=== PATIENT | female | born 1970 | race Caucasian/White ===

== ENCOUNTER → 2017-03-12 08:45 | Outpatient (CLI) | payer BC, SELFPAY ==
[2017-03-12 09:52] LABS: Absolute Lymphocyte Count 2.15 X10^3/ul (0.83-4.51); Absolute Neutrophil Count 6.1 X10^3/uL (2.0-7.7); Basophil# 0.02 X10^3/uL; Basophil% 0.2 % (0-1); Eosinophil# 0.12 X10^3/uL; Eosinophils% 1.3 % (0-5); Hematocrit 38.3 % (37-47); Hemoglobin 11.5 g/dl (12.0-15.0); Lymphocyte # 2.15 X10^3/ul (4.0); Mean Corpuscular Hgb 26.6 pg (27.0-32.0); Mean Corpuscular Volume 88.7 fL (81-99); Mean Platelet Vol. 8.8 fl (6.2-12.0); Monocyte# 0.53 X10^3/uL; Monocyte% 5.9 % (0-10); Neutrophil # 6.12 X10^3/uL (2.7-7.7); Neutrophil % 68.5 % (47-70); Platelet Count 346 K/mm3 (150-450); RBC Distribution Width CV 16.6 % (11.6-14.6); RBC Distribution Width SD 54.3 fl (35.1-43.9); Red Blood Count 4.32 M/mm3 (4.2-5.4)
[2017-03-12 09:53] LABS: POSITIVE COUNT NO; POSITIVE DIFFERENTIAL NO; POSITIVE MORPHOLOGY NO
[2017-03-12 10:16] LABS: AST(SGOT) 11 U/L (15-37); Alanine Aminotransfer ALT/SGPT 20 U/L (13-56); Albumin, Serum 3.8 g/dL (3.2-5.0); Alkaline Phosphatase 73 U/L (45-117); Anion Gap 7 (5-15); BUN 12 mg/dL (7-18); Calcium,Total 8.9 mg/dL (8.5-10.1); Chloride 108 mmol/L (98-107); EST Glomerular Filtration Rate 63 mL/min (>60); Est Glom Filt Rate - Afr Amer 77 mL/min (>60); Globulin 3.7 g/dL (2.2-4.2); Glucose 95 mg/dL (70-110); Potassium 3.9 mmol/L (3.5-5.1); Protein, Total 7.5 g/dL (6.4-8.2); Sodium Level 140 mmol/L (136-145)
[2017-03-13 15:41] LABS: Iron 35 ug/dL (50-170)
== END ==
PROVIDERS: Family Provider Nurse Practitioner; PCP Nurse Practitioner; Visit Provider Internal Medicine Rheumatology
DX: M06.4 Inflammatory polyarthropathy (principal); Z79.899 Other long term (current) drug therapy; M35.00 Sjogren syndrome, unspecified; M79.7 Fibromyalgia; M21.40 Flat foot [pes planus] (acquired), unspecified foot; D64.9 Anemia, unspecified
CPT/HCPCS: 36415; 80053; 83540; 85025

== ENCOUNTER → 2017-03-23 11:40 | Outpatient (CLI) | payer BC, SELFPAY ==
[2017-03-23 13:57] LABS: Hematocrit 34.9 % (37-47); Hemoglobin 11.1 g/dl (12.0-15.0); Mean Corp Hgb Conc 31.8 g/gl (32-36); Mean Corpuscular Hgb 27.8 pg (27.0-32.0); Mean Corpuscular Volume 87.5 fL (81-99); Mean Platelet Vol. 9.5 fl (6.2-12.0); Platelet Count 392 K/mm3 (150-450); RBC Distribution Width CV 16.5 % (11.6-14.6); RBC Distribution Width SD 51.4 fl (35.1-43.9); Red Blood Count 3.99 M/mm3 (4.2-5.4); Scan Indicated on CBC? Y/N NO; White Blood Count 6.8 K/mm3 (4.4-11.0)
[2017-03-23 14:20] LABS: Hemoglobin A1c 5.8 % (4.2-6.3)
[2017-03-23 14:26] LABS: Progesterone Level 1.14 ng/mL (See Comment)
[2017-03-23 16:10] LABS: Anion Gap 8 (5-15); BUN 12 mg/dL (7-18); BUN/Creat Ratio 10.4 RATIO (10-20); Calcium,Total 8.5 mg/dL (8.5-10.1); Chloride 108 mmol/L (98-107); Creatinine, Serum 1.15 mg/dL (0.55-1.02); EST Glomerular Filtration Rate 54 mL/min (>60); Est Glom Filt Rate - Afr Amer 65 mL/min (>60); Estradiol 104.4 pg/mL; Free T3 2.1 pg/mL (2.18-3.98); Glucose 93 mg/dL (74-106); Sodium Level 139 mmol/L (136-145); T4 Free Direct 1.04 ng/dL (0.76-1.46); Thyroid Stim Hormone (TSH) 4.16 uIU/mL (0.358-3.74)
== END ==
PROVIDERS: Visit Provider Obstetrics & Gynecology
DX: R10.2 Pelvic and perineal pain (principal)
CPT/HCPCS: 36415; 80048; 82670; 83036; 84144; 84403; 84439; 84443; 84481; 85027

== ENCOUNTER → 2017-06-05 09:30 | Outpatient (CLI) | payer BC, SELFPAY ==
[2017-06-05 12:44] LABS: ALB/GLOB Ratio 0.8 RATIO (0.9-2.4); AST(SGOT) 12 U/L (15-37); Alanine Aminotransfer ALT/SGPT 19 U/L (13-56); Albumin, Serum 3.5 g/dL (3.2-5.0); Alkaline Phosphatase 83 U/L (45-117); Anion Gap 6 (5-15); BUN 9 mg/dL (7-18); BUN/Creat Ratio 8.1 RATIO (10-20); Calcium,Total 8.6 mg/dL (8.5-10.1); Chloride 106 mmol/L (98-107); Creatinine, Serum 1.11 mg/dL (0.55-1.02); EST Glomerular Filtration Rate 56 mL/min (>60); Est Glom Filt Rate - Afr Amer 68 mL/min (>60); Globulin 4.2 g/dL (2.2-4.2); Glucose 81 mg/dL (74-106); Protein, Total 7.7 g/dL (6.4-8.2); Sodium Level 139 mmol/L (136-145)
[2017-06-05 13:22] LABS: Absolute Lymphocyte Count 1.57 X10^3/ul (0.83-4.51); Absolute Neutrophil Count 4.2 X10^3/uL (2.0-7.7); Basophil# 0.03 X10^3/uL; Basophil% 0.5 % (0-1); Eosinophil# 0.11 X10^3/uL; Eosinophils% 1.7 % (0-5); Hematocrit 36.1 % (37-47); Hemoglobin 10.8 g/dl (12.0-15.0); Lymphocyte # 1.57 X10^3/ul (4.0); Lymphocyte % 24.3 % (19-41); Mean Corp Hgb Conc 29.9 g/gl (32-36); Mean Corpuscular Hgb 24.7 pg (27.0-32.0); Mean Corpuscular Volume 82.4 fL (81-99); Mean Platelet Vol. 9.6 fl (6.2-12.0); Monocyte# 0.49 X10^3/uL; Monocyte% 7.6 % (0-10); Neutrophil # 4.24 X10^3/uL (2.7-7.7); Neutrophil % 65.7 % (47-70); Platelet Count 368 K/mm3 (150-450); RBC Distribution Width CV 14.6 % (11.6-14.6); RBC Distribution Width SD 43.9 fl (35.1-43.9); Red Blood Count 4.38 M/mm3 (4.2-5.4); White Blood Count 6.5 K/mm3 (4.4-11.0)
[2017-06-05 13:26] LABS: POSITIVE COUNT NO; POSITIVE DIFFERENTIAL NO; POSITIVE MORPHOLOGY NO
== END ==
PROVIDERS: Family Provider Nurse Practitioner; PCP Nurse Practitioner; Visit Provider Internal Medicine Rheumatology
DX: M06.4 Inflammatory polyarthropathy (principal); Z79.899 Other long term (current) drug therapy; M35.00 Sjogren syndrome, unspecified; M79.7 Fibromyalgia; M21.40 Flat foot [pes planus] (acquired), unspecified foot
CPT/HCPCS: 36415; 80053; 85025

== ENCOUNTER 2017-06-19 14:30 | Outpatient (RCR) | payer BC, SELFPAY ==
--- NOTE | 2017-04-23 11:00 | HP.PTEVAL_ITS ---
Patient's Visit Information OTIS DURAN is a 46 year old F referred to Physical Therapy by Suraj MUÑOZ with a diagnosis of Fibromyalgia. Date of Evaluation: 04/23/17 Physical Therapist: Brooklyn Bonilla - Visit Plan Frequency: 2x /Week Duration: 4 Weeks Plan: Slow progression dependent on pain - Subjective Subjective: Has been off work since April of last year due to pain- was in the hospital and took until July to figure out it was Fibromyalgia, RA, Sorgens. Has taken medications to try to get things ironed out and now she is winded doing normal activities. 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 Pain comes and goes but she is really painful today. Patient reports that she hurts head to toe. Worst: 10/19 Agg: movement Eases: nothing yet. Best: 10 Describes pain as sharp/shooting/dull and achy depending on the movement. Sleep: disturbed does not sleep well- MD is putting her on ambien. Before this started she was working at [employer] 7 days a week-3rd shift. N/ T comes and goes the whole right side. Has seen lots of doctors (PCP, math and science instructor, pain management, GI doctor). Has one child at home (Freshman in high school),- is watching grandson 4 months old 3 days a week- he is okay now but she is concerned about how it will be when he gets bigger. Has had MRI and x-rays of her whole body. Feels like her disease is staying the same. Is in the process of changing meds. PMHx: RA, Sorgens, Fibro - Objective Posture: FH, RS, increased kyphosis- guarded. Gait: stiff- decreased rotation. Stairs: asc/desc 8 recip with 2 HR uncontrolled and uses UE A. HR/TR: able. Balance: WS but unable to SLS. ROM: WNL in all planes. Strength: ankle: 5/5 , knee: 4+/5, hip: 4/5 Core: fair minus, scap: fair minus, Shoulder: 4/5, Elbow : 4+/5, Check Processing Clerk: right is less than left - Goals Goal 1:: Patient will be I with HEP and progression Goal Time Frame: 4-6 Weeks Goal 2:: Patient will demo 4+/5 strength in UE and LE where deficit Goal Time Frame: 4-6 Weeks Goal 3:: Patient will maintain proper posture t/o tx session to demo increased core s/s Goal Time Frame: 4-6 Weeks - Rehabilitation Potential Physical Therapy Diagnosis: Patient presents with hypomobility- she decreased strength leading to increased pain with ADL's. Rehabilitation Potential: Fair - Anticipated Interventions Patient/Client Instruction: Educate patient on: Benefits of Fitness Program For the Purpose of:: To improve performance and independence with ADL's Therapeutic Exercise to Include: Strength training, Endurance training, Balance training, Agility training, Body mechanics, Postural training, Flexibilty training, In an aquatic setting, Passive ROM, Active ROM, Dynamic Lumbar Stabilization, Scapular Strength/Stabilization For the Purpose of:: To improve muscle performance and motor function Thank you for the opportunity to evaluate your patient. For Medicare and Medicare HMO plans, please review the plan of care and approve it. It will need to be FAXED BACK to us at [phone] for Medicare purposes. Please let me know if there are questions or concerns regarding this plan of care. Physician Signature: Date:
--- NOTE | 2017-05-28 10:57 | HP.PTREVAL_ITS ---
Suraj Hunt, It has been my pleasure to treat OTIS DURAN over the last 8 visits for Fibromyalgia. Please see the progress note below for an update on the physical therapy plan of care! Subjective: The back and forth weather is killing her. Today is miserable in the hip/knee and right wrist due to the snow. Does feel that overall water therapy has helped. When she gets done she is sore when she drives home but she is able to do a little more when she gets home. Feels that she wants to continue therapy. Feels that she is 40-50% better than start of therapy. Feels that she is making progress. Objective/Function: Posture:FH,RS, Increased kyphosis. Gait: slow- wide SAEID. Stairs: non recip with 2 HR. HR/TR: able. Balance: 15 sec then UE a. ROM: WFL. Strength: 4+/5 Plan Plan: Continue with POC 2x a week for 4 weeks in aquatic therapy. Goals Goal 1:: Patient will be I with HEP and progression Goal Time Frame: 4-6 Weeks Goal Progress: Progressing Goal 2:: Patient will demo 4+/5 strength in UE and LE where deficit Goal Time Frame: 4-6 Weeks Goal Progress: Progressing Goal 3:: Patient will maintain proper posture t/o tx session to demo increased core s/s Goal Time Frame: 4-6 Weeks Goal Progress: Progressing Anticipated Interventions Patient/Client Instruction: Educate patient on: Benefits of Fitness Program For the Purpose of:: To improve performance and independence with ADL's Therapeutic Exercise to Include: Strength training, Endurance training, Balance training, Agility training, Body mechanics, Postural training, Flexibilty training, In an aquatic setting, Passive ROM, Active ROM, Dynamic Lumbar Stabilization, Scapular Strength/Stabilization For the Purpose of:: To improve muscle performance and motor function Please do not hesitate to contact me at [phone] by phone or Fax: if you have questions or concerns regarding this new plan of care! Sincerely, Brooklyn Bonilla
--- NOTE | 2017-07-01 16:54 | HP.PT.NRP ---
HP - Discharge Summary (1) - Patient Information OTIS DURAN was seen in my office for initial evaluation on 04/23/17. The following Plan of Care was established for this patient: Initial Frequency: 2x /Week Initial Duration: 4 Weeks - Anticipated Interventions Patient/Client Instruction: Educate patient on: Benefits of Fitness Program For the Purpose of:: To improve performance and independence with ADL's Therapeutic Exercise to Include: Strength training, Endurance training, Balance training, Agility training, Body mechanics, Postural training, Flexibilty training, In an aquatic setting, Passive ROM, Active ROM, Dynamic Lumbar Stabilization, Scapular Strength/Stabilization For the Purpose of:: To improve muscle performance and motor function This patient was last seen in our office . Pertinent comments regarding their Physical therapy will appear below: Patient has been very inconsistent with attending therapy with many cancels or simply not showing for her apts. At this time it is appropriate for her to be discharged from PT and return to MD for further evaluation. At this point I will be discontinuing this patient from physical therapy. I would be happy to see this patient again in the future if found appropriate by the physician. Thank you! Brooklyn Bonilla
== END 2017-06-19 19:00 | disposition home or self-care (01) ==
LOC: PT 14:30
PROVIDERS: Family Provider Nurse Practitioner; PCP Nurse Practitioner; Visit Provider Physical Medicine & Rehabilitation
DX: M79.7 Fibromyalgia (principal)
CPT/HCPCS: 97113; 97162; 97530

== ENCOUNTER → 2017-06-19 15:43 | Outpatient (CLI) | payer BC, SELFPAY ==
--- NOTE | 2017-06-19 15:46 | RAD_ITS ---
STUDY: X-RAY CHEST REASON FOR EXAM: Female, 46 years old. Long-term drug therapy TECHNIQUE: Frontal and lateral views of the chest. COMPARISON: None. FINDINGS: The lungs are clear and expanded. There is no demonstrated pleural abnormality. Normal size heart. Normal mediastinum and di. Normal visualized pulmonary arteries. Normal visualized aortic arch and descending thoracic aorta. There are diffuse degenerative changes of the visualized thoracic spine. Normal visualized ribs, clavicles, and shoulders. There is no demonstrated abnormality of the visualized soft tissue structures of the upper abdomen. RAD/Chest PA and Lateral IMPRESSION: Normal x-ray examination of the chest. Electronically Signed: Jorge Shrestha MD at 16:11 EDT , Service support ,
[2017-06-25 03:07] LABS: QNTFERON TB Ag Minus Nil Value < 0 IU/mL (.); QNTFERON TB Ag Value 0.09 IU/mL (.); QNTFERON TB Mitogen Value > 10.00 IU/mL (.); QNTFERON TB Nil Value 0.15 IU/mL (.)
[2017-06-25 11:03] LABS: QNTIFERON TB Gold Negative (Negative)
== END ==
PROVIDERS: Family Provider Nurse Practitioner; PCP Nurse Practitioner; Visit Provider Internal Medicine Rheumatology
DX: M06.4 Inflammatory polyarthropathy (principal); Z79.899 Other long term (current) drug therapy; M35.00 Sjogren syndrome, unspecified; M79.7 Fibromyalgia; M21.40 Flat foot [pes planus] (acquired), unspecified foot
CPT/HCPCS: 36415; 71046; 86480

== ENCOUNTER 2018-02-10 22:33 | Emergency (ER) | payer BC, SELFPAY ==
[2018-02-10 22:34] VITALS: BP 119/82; PULSE 132; RESP 14; TEMP 36.7; O2SAT 98; BMI 28.4
[2018-02-11] MEDS: Ondansetron 4 MG/2 ML Vial IV (00:27)
[2018-02-11] MEDS: HYDROmorphone 1 MG/ML Syringe 0.5 MG IV (00:27)
[2018-02-11] MEDS: 0.9% Normal Saline 1,000 ML 1000 ML IV (00:27)
[2018-02-11 00:45] LABS: Absolute Lymphocyte Count 0.44 X10^3/ul (0.83-4.51); Absolute Neutrophil Count 6.6 X10^3/uL (2.0-7.7); Basophil# 0.01 X10^3/uL; Basophil% 0.1 % (0-1); Hematocrit 30.5 % (37-47); Hemoglobin 9.2 g/dl (12.0-15.0); Lymphocyte # 0.44 X10^3/ul (4.0); Mean Corp Hgb Conc 30.2 g/gl (32-36); Mean Corpuscular Hgb 22.3 pg (27.0-32.0); Mean Corpuscular Volume 73.8 fL (81-99); Mean Platelet Vol. 8.2 fl (6.2-12.0); Monocyte# 0.29 X10^3/uL; Monocyte% 3.9 % (0-10); Neutrophil # 6.64 X10^3/uL (2.7-7.7); Neutrophil % 89.9 % (47-70); Platelet Count 417 K/mm3 (150-450); RBC Distribution Width CV 18.5 % (11.6-14.6); RBC Distribution Width SD 48.1 fl (35.1-43.9); Red Blood Count 4.13 M/mm3 (4.2-5.4); White Blood Count 7.4 K/mm3 (4.4-11.0)
[2018-02-11 00:47] LABS: Differential Indicated SCAN CRITERIA MET; POSITIVE COUNT NO; POSITIVE DIFFERENTIAL YES; POSITIVE MORPHOLOGY YES
[2018-02-11 00:56] LABS: AST(SGOT) 15 U/L (15-37); Alanine Aminotransfer ALT/SGPT 18 U/L (13-56); Albumin, Serum 3.1 g/dL (3.2-5.0); Alkaline Phosphatase 76 U/L (45-117); Anion Gap 10 (5-15); BUN 14 mg/dL (7-18); BUN/Creat Ratio 13.6 RATIO (10-20); Bilirubin, Direct 0.15 mg/dL (0.00-0.30); Calcium,Total 8.3 mg/dL (8.5-10.1); Chloride 106 mmol/L (98-107); Creatinine, Serum 1.03 mg/dL (0.55-1.02); EST Glomerular Filtration Rate 61 mL/min (>60); Est Glom Filt Rate - Afr Amer 74 mL/min (>60); Estimated Creatinine Clearance 60.76 ml/min; Globulin 4.3 g/dL (2.2-4.2); Glucose 108 mg/dL (74-106); Lipase 98 U/L (73-393); Potassium 3.4 mmol/L (3.5-5.1); Protein, Total 7.4 g/dL (6.4-8.2); Sodium Level 138 mmol/L (136-145)
[2018-02-11 01:00] LABS: Anisocytosis 1+; Differential Comment SCAN; Hypochromasia 1+; Microcytosis 1+; Polychromasia 1+
[2018-02-11 01:15] VITALS: PULSE 103; RESP 16; O2SAT 99
[2018-02-11 01:15] LABS: Bacteria 0 SEEN /hpf (None Seen); Mucous, Urine 0 SEEN /hpf (<or=2+); Red Blood Cells-Urine 0 SEEN /hpf (0-5)
[2018-02-11] MEDS: 0.9% Normal Saline 1,000 ML 150 ML IV (01:15)
[2018-02-11 01:18] LABS: Color, Urine Straw (Yellow); Glucose, Dipstick Normal (Normal); Ketone-Dipstick Negative (Negative); Leukocyte Esterase-Dipstick 100 /ul (Negative); Nitrite-Dipstick Negative (Negative); Occult Blood-Urine Negative /ul (Negative); Protein-Dipstick Negative (Negative); Urine Bilirubin Dipstick Negative (Negative); Urine Clarity Clear (Clear); Urine Urobilinogen Normal (Normal)
[2018-02-11 01:27] LABS: Squamous Epithelial Cells - UA 10-25 SEEN /hpf (5-10); White Blood Cells 5-10 SEEN /hpf (0-5)
[2018-02-11] MEDS: HYDROmorphone 0.5 MG/0.5 ML SYRINGE IV (01:29)
--- NOTE | 2018-02-11 02:01 | ED.VISSUMM ---
- ER Visit Summary Date of Service: 02/11/18 Chief Complaint: Nausea, vomiting, diarrhea, chills History of Present Illness: The patient is a 47 F who presents with above symptoms since 7 AM this morning. She reports subjective fever and chills. Her stomach feels uneasy but no focal abdominal pain. Past history significant for rheumatoid arthritis, fibromyalgia, Sjogren's. Physical Examination: Vital signs significant for heart rate of 132, otherwise unremarkable. Patient is lying in bed. She appears ill but not toxic. Head neck examination was mildly dry mucous membranes. Heart is regular rhythm but tachycardic. Lungs sounds are clear. Abdomen is soft with no focal tenderness on exam. Hypoactive bowel sounds are present throughout. Test Results: CBC was normal white count with hemoglobin 9.2. Chemistry studies reveal potassium 3.4. LFTs and lipase are normal. Urinalysis shows 5-10 white cells but 10-25 epithelials. Emergency Department Course and Treatment: Patient was given IV fluids, Dilaudid, and Zofran. On repeat evaluation she is able to tolerate ice chips and does feel improved. She will be given [place] along with Zofran for home. Treatment Plan: [] Disposition: Discharge Impression: Viral gastroenteritis This note was generated with [employer] dictation software. It may contain incorrect words, spelling, and punctuation that were not noted in review of the chart prior to signing ED Disposition - Plan for ED Patient: Chief Complaint: Nausea/Vomiting/Diarrhea Referrals: Zoë Chatterjee, [facility] [Primary Care Provider] -
--- NOTE | 2018-02-11 02:03 | ED.DEP ---
ED Disposition - Plan for ED Patient: Disposition: Home or Assisted Living Chief Complaint: Nausea/Vomiting/Diarrhea Instructions: ED Gastroenteritis Viral Prescriptions: Hydrocodone Bitart/Apap 5-325 [[place] 5MG-325MG] 1 tablet PO Q6H PRN PRN 3 Days #10 tablet PRN Reason: Pain Ondansetron [Zofran Odt] 4 mg PO Q8H PRN PRN #10 tablet PRN Reason: Nausea Referrals: Zoë Chatterjee, [facility] LEASING [facility] [Primary Care Provider] - 3-5 Days if not improving
[2018-02-11] MEDS: HYDROcodone Bitartrate/Apap 5/325 Tablet PO (02:22)
[2018-02-11] MEDS: Ondansetron ODT 4 MG Tablet PO (02:23)
[2018-02-11 02:26] VITALS: BP 113/73; PULSE 109; RESP 18; O2SAT 94
== END 2018-02-11 02:26 | disposition home or self-care (01) ==
PROVIDERS: Emergency Provider Emergency Medicine; Family Provider Nurse Practitioner; PCP Nurse Practitioner
DX: A08.4 Viral intestinal infection, unspecified (principal); M06.9 Rheumatoid arthritis, unspecified; M79.7 Fibromyalgia; M35.00 Sjogren syndrome, unspecified
CPT/HCPCS: 80048; 80076; 81001; 83690; 85025; 96361; 96374; 96375; 96376; 99283; J7030; A4216; J2405

== ENCOUNTER → 2018-10-20 15:44 | Outpatient (CLI) | payer BC, SELFPAY ==
--- NOTE | 2018-10-20 15:50 | RAD_ITS ---
STUDY: X-RAY CHEST REASON FOR EXAM: Female, 48 years old. Increased white count TECHNIQUE: 2 views COMPARISON: June 19, 2017 FINDINGS: The lungs are clear and expanded. There is no demonstrated pleural abnormality. Normal size heart. Normal mediastinum and di. Normal visualized pulmonary arteries. Normal visualized aortic arch and descending thoracic aorta. Normal visualized thoracic spine. Normal visualized ribs, clavicles, and shoulders. There is no demonstrated abnormality of the visualized soft tissue structures of the upper abdomen. RAD/Chest PA and Lateral IMPRESSION: Normal x-ray examination of the chest. No acute findings in the lungs Electronically Signed: Anam Isbell MD at 6:37 EDT Tel , Service support ,
== END ==
LOC: HPRAD 15:46
PROVIDERS: Family Provider Nurse Practitioner; PCP Nurse Practitioner; Referring Provider Nurse Practitioner; Visit Provider Nurse Practitioner
DX: D72.829 Elevated white blood cell count, unspecified (principal)
CPT/HCPCS: 71046

== ENCOUNTER 2018-11-11 20:02 | Emergency (ER) | payer BC, SELFPAY ==
[2018-11-11] VITALS (7 sets, daily range): BP systolic 122–135; BP diastolic 82–98; PULSE 88–128; RESP 14–21; TEMP 36.9–37.4; O2SAT 95–98; BMI 29.1
--- NOTE | 2018-11-11 20:40 | EKG12_ITS ---
Test Reason : CP Blood Pressure : / mmHG Vent. Rate : 111 BPM Atrial Rate : 111 BPM P-R Int : 096 ms QRS Dur : 064 ms QT Int : 318 ms P-R-T Axes : 052 050 024 degrees QTc Int : 432 ms Sinus tachycardia with short MT Otherwise normal ECG Confirmed by MARI HAIR ([id number]), photographic editor BIANCA WATERS ([id number]) on 11/15/2018 12:19:03 PM Referred By: MR Confirmed By:MARI HAIR
--- NOTE | 2018-11-11 20:40 | CT_ITS ---
STUDY: CTA CHEST REASON FOR EXAM: Female, 48 years old. Shortness of breath, chest pain RADIATION DOSAGE (If Supplied By Facility): CTDIvol = ( 7.45 ) mGy, DLP = ( 304.31 ) mGycm TECHNIQUE: The examination was performed with the intravenous administration of IV Isovue 370 100. Post-processing of the angiographic images was performed, with multiplanar reformation and 3D reconstruction. Individualized dose optimization techniques were used for this CT. COMPARISON: July 10, 2016 FINDINGS: Normal enhancement of the main pulmonary artery and right and left pulmonary arteries. Normal enhancement of the bilateral peripheral pulmonary arteries. There is no demonstrated pulmonary embolism. Normal thoracic aorta and visualized great vessels. There is no demonstrated aortic dissection. Normal heart and pericardium. Normal mediastinum. Normal hilar regions. Normal visualized trachea and bronchi. The lungs nonfocal expanded. Mild left basilar atelectasis. Normal pleura. Normal chest wall structures. Normal osseous structures. Normal visualized upper abdomen. CT/CTA Chest W/WO Contrast IMPRESSION: No demonstrated pulmonary embolism or arterial dissection. Electronically Signed: Hari Duncan DO at 21:57 EDT Tel [phone], Service support ,
[2018-11-11 20:51] LABS: Absolute Lymphocyte Count 2.22 X10^3/uL (0.83-4.51); Absolute Neutrophil Count 9.8 X10^3/uL (2.0-7.7); Basophil# 0.09 X10^3/uL; Basophil% 0.7 % (0-1); Eosinophil# 0.12 X10^3/uL; Eosinophils% 0.9 % (0-5); Hematocrit 35.3 % (37-47); Hemoglobin 10.2 g/dL (12.0-15.0); Lymphocyte # 2.22 X10^3/ul (4.0); Lymphocyte % 16.9 % (19-41); Mean Corp Hgb Conc 28.9 g/dL (32-36); Mean Corpuscular Hgb 21.7 pg (27.0-32.0); Mean Corpuscular Volume 74.9 fL (81-99); Mean Platelet Vol. 8.7 fl (6.2-12.0); Monocyte# 0.88 X10^3/uL; Monocyte% 6.7 % (0-10); NRBC Flagged by Analyzer 0 % (0-5); Neutrophil # 9.77 X10^3/uL (2.7-7.7); Neutrophil % 74.4 % (47-70); Platelet Count 491 K/mm3 (150-450); RBC Distribution Width CV 18.6 % (11.6-14.6); RBC Distribution Width SD 50.4 fl (35.1-43.9); Red Blood Count 4.71 M/mm3 (4.2-5.4); White Blood Count 13.1 K/mm3 (4.4-11.0)
[2018-11-11] MEDS: Aspirin 81 MG TAB.CHEW 324 MG PO (20:52)
[2018-11-11 21:04] LABS: Anion Gap 5 (5-15); BUN 12 mg/dL (7-18); BUN/Creat Ratio 10.6 RATIO (10-20); Calcium,Total 9.1 mg/dL (8.5-10.1); Chloride 104 mmol/L (98-107); Creatinine, Serum 1.13 mg/dL (0.55-1.02); EST Glomerular Filtration Rate 55 mL/min (>60); Est Glom Filt Rate - Afr Amer 66 mL/min (>60); Estimated Creatinine Clearance 54.79 ml/min; Glucose 104 mg/dL (74-106); Potassium 3.8 mmol/L (3.5-5.1); Sodium Level 135 mmol/L (136-145)
--- NOTE | 2018-11-11 22:21 | ED.VIS.CHEST ---
History of Present Illness Chief Complaint: Shortness of Breath Informant: Patient Narrative: Patient presented for evaluation secondary to chest pain. Patient reports that about an hour prior to arrival she was resting and had a sudden onset of chest pain. She describes it as a sharp type pain that was in her chest, went up into her neck, and down into her abdomen and both her legs. She reports that associated with some shortness of breath. No real exacerbating relieving factors. Patient denies that she is ever had any prior similar episodes. She denies any history of hypertension diabetes hyperlipidemia or premature family history of heart disease or smoking. No DVT or PE risk factors. No family history of aneurysm or dissection. Review of systems otherwise negative. Past Medical History - Allergies and Home Meds Allergies/Adverse Reactions: Allergies codeine Allergy (Verified 11/11/18 20:03) Rash morphine Allergy (Verified 11/11/18 20:03) Rash venom-honey bee [bee venom (honey bee)] Allergy (Verified 11/11/18 20:03) Unknown Primary Care Physician: Zoë Chatterjee NP-C [Primary Care Provider] - Past Medical History: - - Fibromyalgia Surgical History: - - tubal ligation Smoking Status: Never smoker - Family History Maternal Family History: Reports: No pertinent history Review of Systems All systems negative except as indicated Cardiovascular: Reports: Chest pain Respiratory: Reports: Dyspnea Physical Exam Vital Signs/Narrative: Vital Signs Temp Pulse Resp BP Pulse Ox 11/11/18 21:16 98.5 F 98 17 128/98 H 95 11/11/18 21:15 99 18 128/98 H 95 11/11/18 20:48 98 11/11/18 20:07 115 H 21 H 98 11/11/18 20:03 99.3 F H 128 H 18 122/85 H 95 Inital Vital Signs reviewed: Yes General: Well nourished, Well developed, No Acute Distress Head: Normocephalic, Atraumatic Eyes: Perrl, EOMI ENT: Moist mucous membranes, No rhinorrhea Neck: Supple, Nontender Cardiovascular: Regular rhythm, No murmurs, Tachycardia, - - 2+ radial, 2+ PT pulses bilaterally symmetric Respiratory: No distress, CTA bilaterally, Chest nontender Abdomen: Soft, Nontender, Nondistended, Normal bowel sounds. Negative for: Pulsatile mass Back: Nontender, Normal Inspection Extremities: Nontender, No edema Skin: Normal color, No rash Neurological: Alert, Oriented x3, Cranial nerves II-XII grossly intact, Normal Strength, Normal Sensation Psychological: Normal affect, Normal Mood Diagnostic/Tx/Re-eval CTA PE Study: No Evidence of PE, No Evidence of Dissection - EKG Initial EKG Interpretation: - - Sinus rhythm of [address] segments normal T waves no evidence of acute ischemia or arrhythmia. - Medical Decision Making Patient presented secondary to chest pain. EKG shows no signs of ischemia did demonstrate some tachycardia. Patient's story was that of sudden onset chest pain that went to her neck and down her legs there is at least some concern for the possibility of dissection. CBC chemistry and troponin were remarkable for some leukocytosis, but negative troponin. CT angiogram was found to be negative per radiology. Patient's heart rate improved on repeat evaluation, but she is continuing to have pain. Her heart score is 1, but she came in almost immediately when the pain started so I believe she would benefit from a 3-hour delta troponin. Patient was given a dose of Toradol for treatment of her continued pain. Patient will be signed out to the oncoming provider who will follow up on the patient's repeat troponin. Patient will be dispositioned likely to home at that time. ED Disposition - Plan for ED Patient: Disposition: Home or Assisted Living Diagnosis: Chest pain Instructions: CHEST PAIN, Uncertain Cause Referrals: Zoë Chatterjee NP-C [Primary Care Provider] - 3-5 Days
[2018-11-11] MEDS: Ketorolac 15 MG/ML Vial IV (22:32)
--- NOTE | 2018-11-11 23:10 | ED.RN ---
dr garcia consulted about positive sepsis screen. dr garcia placed no additional orders. sepsis screen discontinued by dr's order. sarah geronimo rn
[2018-11-12] MEDS: HYDROcodone Bitartrate/Apap 5/325 Tablet PO (00:05)
[2018-11-12 00:06] VITALS: BP 117/86; PULSE 93; RESP 12; O2SAT 97
[2018-11-12 00:51] VITALS: BP 127/83; PULSE 99; RESP 20; O2SAT 98
== END 2018-11-12 01:00 | disposition home or self-care (01) ==
PROVIDERS: Emergency Provider Emergency Medicine; Family Provider Nurse Practitioner; PCP Nurse Practitioner
DX: R07.9 Chest pain, unspecified (principal); R06.02 Shortness of breath; M79.7 Fibromyalgia
CPT/HCPCS: 71275; 80048; 84484; 85025; 93005; 96374; 99285; Q9967; A4216

== ENCOUNTER → 2019-01-13 15:30 | Outpatient (CLI) | payer BC, SELFPAY ==
[2018-11-11 20:03] VITALS: BMI 29.1
--- NOTE | 2019-01-13 15:37 | RAD_ITS ---
STUDY: X-RAY - THORACIC SPINE REASON FOR EXAM: Female, 48 years old. Pain TECHNIQUE: 3 view(s) of the thoracic spine were obtained. COMPARISON: None. FINDINGS: Normal kyphosis of the thoracic spine. There is a mild lower thoracic dextroscoliosis. Normal thoracic vertebrae and endplates. Normal disc space heights. The soft tissue structures are unremarkable. RAD/Thoracic Spine 3 Views IMPRESSION: Mild lower thoracic dextroscoliosis. Electronically Signed: Aldo Crane MD at 20:06 EST , Service support ,
--- NOTE | 2019-01-13 15:37 | RAD_ITS ---
STUDY: X-RAY - LUMBAR SPINE REASON FOR EXAM: Female, 48 years old. Pain TECHNIQUE: 5 view(s) of the lumbar spine were obtained. COMPARISON: None FINDINGS: Normal lumbar lordosis. There is no substantial scoliosis. There is a normal alignment of the vertebrae. Normal vertebral bodies and endplates. Normal disc space heights. The soft tissue structures are unremarkable. RAD/L/S Spine Min 4 Views IMPRESSION: Normal x-ray examination of the lumbar spine. Electronically Signed: Aldo Crane MD at 20:05 EST , Service support ,
== END ==
LOC: HPRAD 15:32
PROVIDERS: Family Provider Nurse Practitioner; PCP Nurse Practitioner; Referring Provider Nurse Practitioner Family; Visit Provider Nurse Practitioner Family
DX: M54.5 Low back pain (principal); M54.6 Pain in thoracic spine
CPT/HCPCS: 72072; 72110

== ENCOUNTER 2020-01-19 18:34 | Observation (INO) | payer OTHER, SELFPAY ==
[2018-11-11 20:03] VITALS: BMI 29.1
--- NOTE | 2020-01-13 12:49 | HP.PCM_ITS ---
- Problem List (1) PMB (postmenopausal bleeding) Status: Acute (2) Uterine polyp Status: Acute History and Physical Date of Admission: 01/19/20 DATE OF SERVICE: January 13, 2020 ? PROBLEM:?PMB, polyp present on EMB ? DIAGNOSIS:?As above ? PAST SURGICAL HISTORY:? PAST SURGICAL HISTORY PAST SURGICAL HISTORY Procedure Laterality Date ? COLONOSCOPY W/BX ? 03/18/05 ? LIGATE FALLOPIAN TUBE ? ? ? Tubal ligation ? PAST SURGICAL HISTORY OF Right ? ? keloid excision on knee as a child ? THYROIDECTOMY ? ? ? partial ? PAST MEDICAL HISTORY:? PAST MEDICAL HISTORY PAST MEDICAL HISTORY Diagnosis Date ? Diverticulitis of colon (without mention of hemorrhage)(562.11) ? ? Fibromyalgia 2017 ? Rheumatoid arthritis (HCC) 2017 ? Sjogren's syndrome (HCC) 2017 ? SUBJECTIVE:?Irregular cycles.? ? SOCIAL HISTORY:? SOCIAL HISTORY Social History ? Tobacco Use ? Smoking status: Never Smoker ? Smokeless tobacco: Never Used Substance Use Topics ? Alcohol use: Yes ? ? Frequency: Monthly or less ? ? Drinks per session: 1 or 2 ? ? Binge frequency: Never ? Drug use: No ? 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 FINAL DIAGNOSIS Endometrial biopsy - Endometrial polyp. - Superficial sample of fragmented proliferative endometrial epithelium with metaplastic changes; lack of intact architecture precludes more specific assessment. ? Component Latest Ref Rng & Units 12/08/2019 TSH 0.270 - 4.200 uU/mL 2.510 FSH mU/mL 118.1 Pelvic US: IMPRESSION: Mildly heterogeneous endometrium with a small echogenic focus/calcification as described. Nonvisualization of the bilateral ovaries. ? RESULT: Uterus size: 7.9 x 5.2 x 3.7 cm ?-Orientation: Anteverted ?-Myometrium: Normal sonographic appearance. ?-Endometrial echo complex: 1.3 cm. ?Small echogenic focus, compatible with a small calcification is identified in the mid to upper portion of the endometrium. ?Subtle vascularity is noted in the vicinity of this echogenic focus is/calcification. ?The endometrium has a mildly heterogeneous appearance. ?-Cervix: normal Right ovary: The right ovary is not identified. Left ovary: The left ovary is not identified. Pelvis free fluid: None. ? ? Allergies: ?Codeine ?Intolerance ??Comment:Nausea and vomiting ?Morphine ?Hives ? Current Outpatient Medications on File Prior to Visit Medication Sig ? omeprazole (PRILOSEC) 40 mg capsule Take 40 mg by mouth once daily. ? DULoxetine (CYMBALTA) 30 mg capsule Take 60 mg by mouth once daily. ? ? EPINEPHrine (EPIPEN) 0.3 mg/0.3 mL auto-injector Inject 0.3 mL subcutaneously as directed. No current facility-administered medications on file prior to visit.? ? OBJECTIVE: ? VITALS: BP 100/60 ? Pulse 74 ? Resp 16 ? Ht 5' 4 (1.626 m) ? Wt 185 lb (83.9 kg) ? LMP 07/25/2019 ? BMI 31.76 kg/m? ? HEENT: ?Normocephalic, atraumatic, Mucus membranes moist without lesions. ? NECK: ???Soft and Supple. ?No adenopathy , thyromegaly or bruits. ? SKIN: No lesions. ? CHEST: Clear to auscultation. ?No wheezes or rales. ?Good air exchange. ? HEART: Regular rate and rhythm ?No S3 or S4. ?No gallops or rubs. ? BACK: Nontender with no CVA tenderness. ? ABDOMEN: Soft, non-tender, non-distended, no masses, no hepatosplenomegaly. ? LOWER EXTREMITIES: There was no pitting edema, no palpable cords and no skin changes. ? ? ? ASSESSMENT:?PMB, polyp on EMB, heterogenous endometrium on pelvic US with a calcification with vascularity noted, limited EMB ? PLAN:?Discussed hysteroscopy, polypectomy, D&C.?The rationale for the proposed surgery was discussed in addition to risks, benefits, and alternatives. ?General pre- and post-operative care was reviewed. ?Questions were answered. ?After discussion, the patient indicated a desire to proceed with the planned surgery. ? Priyanka Mariano,?DO
[2020-01-19] VITALS (35 sets, daily range): BP systolic 104–140; BP diastolic 79–100; PULSE 68–101; RESP 14–16; TEMP 36.3–37.3; O2SAT 86–100; BMI 31.8; BMI 32.2
[2020-01-19] MEDS: Lactated Ringers 1,000 ML 100 ML IV ×3 (10:27→17:59)
[2020-01-19 10:39] LABS: Hematocrit 39.1 % (37-47); Hemoglobin 11.6 g/dL (12.0-15.0); Mean Corp Hgb Conc 29.7 g/dL (32-36); Mean Corpuscular Hgb 24.1 pg (27.0-32.0); Mean Corpuscular Volume 81.3 fL (81-99); Mean Platelet Vol. 8.7 fl (6.2-12.0); Platelet Count 405 K/mm3 (150-450); RBC Distribution Width CV 16.4 % (11.6-14.6); RBC Distribution Width SD 48.5 fl (35.1-43.9); Red Blood Count 4.81 M/mm3 (4.2-5.4); White Blood Count 7.2 K/mm3 (4.4-11.0)
[2020-01-19 10:39] LABS: Internal QC Validated? YES +Cl - CLEAR BKGD; Pregnancy, Urine Negative Negative
--- NOTE | 2020-01-19 11:10 | EMB_PTH ---
PATIENT: OTIS DURAN LOC: MS3 U#:[id number] AGE/SX: 49/F ROOM: [facility] RE01/19/[address]: Dr. Priyanka Mariano DO : 1970 BED: 1 DIS: 01/20/2020 SPEC #: [id number] RECD: 01/19/20 13:51 STATUS: TABATHA REQ #: [id number] MAREK: 01/19/20 11:[address]: Priyanka Mariano DEPT: SURGICAL PATHOLOGY RECD BY: Susanna Horne ENTERED: 01/20/20 08:16 SP TYPE: ENDOM BX/C REGINA DR: MD Dr. Maria C Deleon MD Tissues: Endometrium, NOS Procedures: Surgery Specimen Level IV HEADER OPERATION: Hysteroscopy, D & C, polypectomy, Symphion PRE-OP DIAGNOSIS: Postmenopausal bleeding; uterine polyp TISSUE SUBMITTED: Endometrial curettings, polyp MICROSCOPIC DIAGNOSIS Endometrium curettings and polyp: Fragments of endometrial polyp with simple cystic hyperplasia without atypia. Rare fragments of benign superficial endocervix and benign squamous mucosa. AM:britt 01/23/20 MICROSCOPIC DESCRIPTION Slides are reviewed. GROSS DESCRIPTION Received in fixative is one container labeled with the patient's name and designated endometrial curettings and polyp. The specimen consists of multiple fragments of guillen hemorrhagic soft tissue that in aggregate measure 3 x 2.5 x 0.3 cm. The specimen is totally submitted in one cassette. / SJ:britt 01/20/20 TC:5 CPT: 69242
--- NOTE | 2020-01-19 11:14 | DCINST_ITS ---
Discharge Diet: No Restrictions Discharge Activity: Return to Normal Activity, May Drive - 24 hours or more after surgery, May Shower May resume sexual activity in: 1 week - Nothing in the vagina for 1 week including no tub baths or hot tubs Weight Bearing Status: Weight bearing as tolerated Lifting Restrictions: No restrictions Call your doctor if you observe: Fever of 101 or Higher, Change in Color, Inability to urinate, Inability to have a bowel movement, Using more than one pad per hour, Shortness of breath, Dizziness, Fainting spells, Chest pain, Increased palpitations (irregular heartbeat), Calf discomfort, Uncontrolled pain Allergies/Adverse Reactions: Allergies codeine Allergy (Verified 01/19/20 10:13) Rash morphine Allergy (Verified 01/19/20 10:13) Rash venom-honey bee [bee venom (honey bee)] Allergy (Verified 01/19/20 10:13) Unknown Medications to take at Discharge Duloxetine HCl 60 mg PO QHS 02/10/17 Multivitamin with Minerals [Multiple Vitamin] 1 each PO DAILY 02/10/18 Omeprazole 40 mg PO QHS 01/13/20 Orders to be completed after discharge: Type & Screen - PAT ONLY Time Frame: 01/19/20, Facility: [facility], Location: Laboratory COVID 19 AG RAPID (RN COLLECT) Time Frame: 1 Day, Facility: [facility], Location: Laboratory Primary Care Physician: Maria C Silverio MD [Primary Care Provider] - Test Results: Test results from this visit will be discussed in further detail at your follow- up appointment, if applicable. Please Follow Up With: Priyanka Mariano DO When: 1-2 weeks
--- NOTE | 2020-01-19 11:15 | OP.PCM_ITS ---
Problem List (1) PMB (postmenopausal bleeding) Status: Acute (2) Uterine polyp Status: Acute Report of Operation Date of Procedure: 01/19/20 Pre-Operative Diagnosis: PMB, uterine polyp Post-Operative Diagnosis: As above Surgery/Procedure Performed:: Hysteroscopy, polypectomy, D&C Description of Surgical Findings:: There was uterine polyp present on the posterior wall of the uterus. Otherwise normal-appearing uterine cavity and bilateral tubal ostia were visualized. Atrophic appearing endometrium. Good descent of uterus and cervix. pediatric physician assistant: None Type of Anesthesia:: MAC Special Medications: None Specimen's removed: Uterine polyp and endometrial curettings Drains: None Estimated Blood Loss (mL): < 50 cc Fluids Replaced: 500 cc fluid deficit Description of Procedure: Indications: Patient had postmenopausal bleeding. Pelvic ultrasound showed calcifications in the endometrium. An endometrial biopsy was performed in the office and it was limited, and a polyp was noted at the time of the biopsy. Start time: 1123 Stop time: 1147 Procedure: Patient was taken to the operating room where MAC anesthesia was induced and found to be adequate. She was prepped and draped in the dorsal lithotomy position using yellowfin stirrups. A weighted speculum was placed in the vagina to expose the cervix. Single-tooth tenaculum was placed on the anterior lip of the cervix. Cervix was serially dilated to accommodate the Symphion hysteroscope. The Symphion hysteroscope was advanced to the fundus of the uterus, and the uterine cavity was distended using normal saline as distention media. A polyp was noted. The cavity was otherwise normal-appearing and bilateral tubal ostia were visualized. The endometrium was atrophic appeari ng. Pictures were taken. Using the Symphion resection device, the polyp was removed. The hysteroscope was then removed. Sharp curettage was then performed. The endometrial curettings and the polyp were sent to pathology for review. All instruments were removed from the vagina. All sweep was performed. Bleeding was hemostatic. Instrument and sponge counts were correct. The patient was taken to the recovery room in stable condition. Grafts/Implants Used: None - Complications None - Admit VTE Documentation VTE Present on Admission: No VTE Mechan Device Prophylaxis: SCD's VTE Pharm Prophylaxis ordered?: No
[2020-01-19] MEDS: Lidocaine 1% (20 ml mdv) 20 ML Vial (11:40)
[2020-01-19] MEDS: Albuterol 2.5 MG/3 ML VIAL.NEB. INHALATION (15:17)
--- NOTE | 2020-01-19 16:15 | RAD_ITS ---
STUDY: X-RAY CHEST REASON FOR EXAM: Female, 49 years old. LOW PULSE OX POST OP TECHNIQUE: 1 view COMPARISON: Prior chest radiograph of 10/20/2018 FINDINGS: Chronically elevated right diaphragm. Stable fibrotic areas in the mid right lung and a small area above the left costophrenic angle. Negative for new consolidation, other infiltrates or a substantial pleural effusion. Stable cardiac size. Status post right thyroidectomy. Normal visualized pulmonary arteries. Mild elongation of the thoracic aorta. Normal visualized thoracic spine. Normal visualized ribs, clavicles, and shoulders. There is no demonstrated abnormality of the visualized soft tissue structures of the upper abdomen. RAD/Chest 1 View (Portable) IMPRESSION: No acute consolidation, other infiltrates or pleural effusion. Stable chronic changes with chronic elevation of the right diaphragm and fibrotic areas in the mid right lung and left lung base. Electronically Signed: Natalya Walton MD at 16:49 EST , Service support ,
--- NOTE | 2020-01-19 18:55 | PCM.HP.OB ---
- Problem List (1) PMB (postmenopausal bleeding) Status: Acute (2) Uterine polyp Status: Acute History Date of Admission: 01/19/20 History of this : This is a 49 year-old who went a hysteroscopy, polypectomy, D&C for postmenopausal bleeding and a polyp. She was evaluated by her primary care physician prior to surgery. The surgery was uncomplicated- see operative report for details. In recovery she reports left-sided pain with deep inspiration. She otherwise feels well. No chest pain or shortness of breath. She is requiring 2 L of oxygen through the nasal cannula. Allergies codeine Allergy (Verified 01/19/20 10:13) Rash morphine Allergy (Verified 01/19/20 10:13) Rash venom-honey bee [bee venom (honey bee)] Allergy (Verified 01/19/20 10:13) Unknown Home Medications: Home Medications Duloxetine HCl 60 mg PO QHS 02/10/17 Multivitamin with Minerals [Multiple Vitamin] 1 each PO DAILY 02/10/18 Omeprazole 40 mg PO QHS 01/13/20 Smoking Status: Never smoker History Past Pregnancies: Past Pregnancies Delivery Date Name GA/ Weeks Outcome Route Wt Infant Sex Labor Length Anesthesia Delivery Location Provider FOB Physical Exam Vitals: Vital Signs Temp Pulse Resp BP Pulse Ox 97.3 F L 99 16 139/96 H 92 01/19/20 11:55 01/19/20 18:30 01/19/20 18:30 01/19/20 18:30 01/19/20 18:30 General: Alert, No apparent distress HEENT: Atraumatic Lungs: - - On 2L NC Extremities:: No edema Neurological: Neuro grossly intact Assessment/Plan All Active Problems PMB (postmenopausal bleeding) (Acute) Uterine polyp (Acute) This is a 49 year-old s/p hysteroscopy, polypectomy, D&C for PMB and a uterine polyp. - The surgery was uncomplicated. Patient follows with her PCP and was asked to see her PCP for clearance prior to the surgery. In recovery she is requiring 2L NC. Vital signs are otherwise stable. She is well appearing and feels well. Will admit for observation given oxygen requirement - CXR stable - Low suspicion for PE at this time. If unable to wean off O2, will get CT - Continuous pulse ox - SCD's for DVT prophylaxis - Consult placed to medicine for assistance in care - Dispo: Will reassess tomorrow for possible discharge pending medicine consult
--- NOTE | 2020-01-19 19:38 | PCM.PN.HOSP ---
Patient Problems: Active and Suspected Problems PMB (postmenopausal bleeding) (Acute) Uterine polyp (Acute) Reason for Visit: Consult for postop hypoxia Subjective: 48-year-old female with past medical history of GERD, who underwent hysteroscopy, polypectomy and D&C for postmenopausal bleeding and a polyp. Surgery had been unremarkable. Patient had complained of left-sided chest pain with deep inspiration in the immediate postop. She required 2 L of oxygen. Denied any fever or chills or runny nose Chest x-ray showed acute consolidation. Showed chronic stable changes with chronic elevation of right diaphragm and fibrotic changes in the mid right lung and left lung base. Patient denied any sick contacts. No loss of smell or taste. Her rapid COVID-19 test was negative. Vitals/I&O's: Vital Signs Temp Pulse Resp BP Pulse Ox 97.8 F 92 14 140/97 H 93 01/19/20 19:02 01/19/20 19:02 01/19/20 19:02 01/19/20 19:02 01/19/20 19:02 Oxygen Flow Rate (L/min) 2 Oxygen Delivery Method Nasal Cannula Weight: 84.3 kg Body Mass Index (BMI) 31.8 Intake and Output for Last 24 Hours 01/17/20 01/18/20 01/19/20 23:59 23:59 23:59 Intake Total 2000 / 2000 Output Total 800 / 800 Balance 1200 / 1200 General: Alert, Oriented x3, Cooperative, No apparent distress HEENT: Atraumatic, PERRLA, EOMI, Normocephalic Oral: Moist Mucosa Neck: Supple Lungs: Diminished Cardiovascular: Regular rate, Regular Rhythm, Normal S1, Normal S2, No murmurs Abdomen: Bowel Sounds Present, Soft, Non Tender, Non-Distended, No Hepato-splenomegaly Extremities: No edema Skin: No rashes, No breakdown Musculoskeletal: No Tenderness to Palpation of Joints or Extremities Lymphatic: No Cervical, Supraclavicular, or Inguinal Adenopathy Neurological: Cranial nerves II-XII grossly intact, Neuro grossly intact Psych/Mental Status: Normal Affect, Appropriate Microbiology Past 72 Hours 01/18/20 13:34 Mucosa - Nose SARS-CoV-2 Antigen (Rapid) - Final Laboratory Results 01/19/20 10:10: Urine Test Negative 01/19/20 10:20: WBC 7.2, RBC 4.81, Hgb 11.6 L, Hct 39.1, MCV 81.3, MCH 24.1 L, MCHC 29.7 L, RDW Std Deviation 48.5 H, RDW Coeff of Mignon 16.4 H, Plt Count 405, MPV 8.7 01/19/20 10:20: Blood Type A POSITIVE, Antibody Screen NEGATIVE Current Medications Duloxetine HCl (Duloxetine Hcl 60 Mg Capsule) 60 mg PO QHS [facility] Lactated Ringer's () 1,000 mls @ 100 mls/hr IV .Q10H [facility] Last Admin: 01/19/20 17:59 Dose: 100 mls/hr Documented by: Ibuprofen (Ibuprofen 600 Mg Tablet) 600 mg PO Q6H PRN PRN PRN Reason: Pain Score 1-10 Non-Formulary Medication (Omeprazole) 40 mg PO QHS [facility] STROKE Vital Signs/Narrative: Vital Signs Temp Pulse Resp BP Pulse Ox 01/19/20 19:02 97.8 F 92 14 140/97 H 93 01/19/20 18:45 90 16 138/99 H 92 01/19/20 18:30 99 16 139/96 H 92 01/19/20 18:15 89 14 133/92 H 87 01/19/20 18:00 93 16 127/90 H 93 01/19/20 17:45 92 14 136/93 H 92 01/19/20 17:30 95 16 128/87 H 92 01/19/20 17:15 97 14 126/93 H 92 01/19/20 17:00 99 14 129/88 H 93 01/19/20 16:45 90 14 130/95 H 93 01/19/20 16:30 87 16 127/82 H 90 01/19/20 16:15 99 16 133/86 H 86 01/19/20 16:00 99 14 134/86 H 88 01/19/20 15:45 97 14 137/92 H 88 Medical Necessity - Tobacco Use Smoking Status: Never smoker Tobacco Use: Non-smoker Assessment/Plan All Active Problems PMB (postmenopausal bleeding) (Acute) Uterine polyp (Acute) 1. Acute hypoxic insufficiency, unclear etiology Admitting chest x-ray showed chronic changes. BNpep is 103.7 No history of COPD or sick contact. COVID-19 rapid test was negative We will give a trial of Lasix 20 mg IV x1 Encourage use of incentive spirometer If hypoxia persists in a.m., consider CTA of the chest to rule out acute PE 2. POD #0 status post hysteroscopy, D&C, polypectomy Pain is fairly controlled Continue per [facility] recommendation 3. GERD, continue with oral PPI 4. DVT prophylaxis?per primary team Inpatient E&M: 13675 Subs Hosp L2
--- NOTE | 2020-01-19 19:49 | PCS.PANDOC ---
PANDEMIC DOCUMENTATION INITIATED: Date: 01/19/2020 Time: 1929
[2020-01-19] MEDS: Pantoprazole Sodium 40 MG Tablet PO (21:25)
[2020-01-19] MEDS: DULoxetine Hcl 60 MG Capsule PO (21:25)
[2020-01-19] MEDS: Ibuprofen 600 MG Tablet PO (21:25)
[2020-01-19 21:59] LABS: ALB/GLOB Ratio 0.8 RATIO (0.9-2.4); AST(SGOT) 18 U/L (15-37); Alanine Aminotransfer ALT/SGPT 28 U/L (13-56); Albumin, Serum 3.2 g/dL (3.2-5.0); Alkaline Phosphatase 88 U/L (45-117); Anion Gap 7 (5-15); BNP,B-Type NATRIURETIC PEPTIDE 103.7 pg/mL (0-100); BUN 8 mg/dL (7-18); BUN/Creat Ratio 6.5 RATIO (10-20); Calcium,Total 8.7 mg/dL (8.5-10.1); Chloride 107 mmol/L (98-107); Creatinine, Serum 1.23 mg/dL (0.55-1.02); EST Glomerular Filtration Rate 49 mL/min (>60); Est Glom Filt Rate - Afr Amer 60 mL/min (>60); Estimated Creatinine Clearance 47.78 ml/min; Globulin 3.8 g/dL (2.2-4.2); Glucose 226 mg/dL (74-106); Sodium Level 139 mmol/L (136-145)
[2020-01-19] MEDS: Furosemide 20 MG/2 ML VIAL IV (23:59)
[2020-01-20 00:04] VITALS: BP 102/72; PULSE 88; RESP 14; TEMP 37.1; O2SAT 94
[2020-01-20 05:41] VITALS: BP 109/71; PULSE 72; RESP 18; TEMP 37.1; O2SAT 98
[2020-01-20 06:52] VITALS: O2SAT 95
--- NOTE | 2020-01-20 07:03 | PN.OBGYN_ITS ---
Patient Problems: Active and Suspected Problems PMB (postmenopausal bleeding) (Acute) Uterine polyp (Acute) Subjective: Pt doing well. Pain has improved. No CP or SOB. She has no pain or bleeding. No fevers or cough. She is up to chair this morning off O2. - Physical Exam Vitals/I&O's: Vital Signs Temp Pulse Resp BP Pulse Ox 98.7 F 72 18 109/71 98 01/20/20 05:41 01/20/20 05:41 01/20/20 05:41 01/20/20 05:41 01/20/20 05:41 Oxygen Flow Rate (L/min) 2 Oxygen Delivery Method Nasal Cannula Weight: 188 lb Body Mass Index (BMI) 32.2 Intake and Output for Last 24 Hours 01/18/20 01/19/20 01/20/20 23:59 23:59 23:59 Intake Total 2745 / 2745 450 / 450 Output Total 800 / 800 1200 / 1200 Balance 1945 / 1945 -750 / -750 General: Alert, No apparent distress HEENT: Atraumatic Abdomen: Non-Distended Extremities: No edema Skin: No rashes Neurological: Neuro grossly intact Psych/Mental Status: Normal Affect, Appropriate Microbiology Past 72 Hours 01/18/20 13:34 Mucosa - Nose SARS-CoV-2 Antigen (Rapid) - Final Laboratory Results 01/19/20 10:10: Urine Test Negative 01/19/20 10:20: WBC 7.2, RBC 4.81, Hgb 11.6 L, Hct 39.1, MCV 81.3, MCH 24.1 L, MCHC 29.7 L, RDW Std Deviation 48.5 H, RDW Coeff of Mignon 16.4 H, Plt Count 405, MPV 8.7 01/19/20 10:20: Blood Type A POSITIVE, Antibody Screen NEGATIVE 01/19/20 21:14: B-Natriuretic Peptide 103.7 H 01/19/20 21:14: Sodium 139, Potassium 4.0, Chloride 107, Carbon Dioxide 25.0, Anion Gap 7, BUN 8, Creatinine 1.23 H, Estim Creat Clear Calc 47.78, Est GFR (MDRD) Af Amer 60, Est GFR (MDRD) Non-Af 49 L, BUN/Creatinine Ratio 6.5 L, Glucose 226 H, Calcium 8.7, Total Bilirubin 0.30, AST 18, ALT 28, Alkaline Phosphatase 88, Total Protein 7.0, Albumin 3.2, Globulin 3.8, Albumin/Globulin Ratio 0.8 L Current Medications Duloxetine HCl (Duloxetine Hcl 60 Mg Capsule) 60 mg PO QHS [facility] Last Admin: 01/19/20 21:25 Dose: 60 mg Documented by: Ibuprofen (Ibuprofen 600 Mg Tablet) 600 mg PO Q6H PRN PRN PRN Reason: Pain Score 1-10 Last Admin: 01/19/20 21:25 Dose: 600 mg Documented by: Pantoprazole Sodium (Pantoprazole Sodium 40 Mg Tablet) 40 mg PO QHS [facility] Last Admin: 01/19/20 21:25 Dose: 40 mg Documented by: Sodium Chloride (0.9% Saline Lock 10 Ml Syringe) 10 - 40 ml IV UD PRN PRN Reason: SALINE FLUSH Medical Necessity - Tobacco Use Smoking Status: Never smoker Tobacco Use: Non-smoker Assessment/Plan All Active Problems PMB (postmenopausal bleeding) (Acute) Uterine polyp (Acute) POD#1 s/p hysteroscopy, polypectomy, D&C - Doing well post operatively - Pt not requiring O2 this morning. Cont IS use. Encouraged ambulation today. Appreciate medicine assistance - Dispo: If no O2 requirement with ambulation today, and pt continues to do well will discharge home. She has follow up with me in the office in 2 weeks. She also has an appointment with her PCP this month
--- NOTE | 2020-01-20 07:07 | PCM.DC.D&C ---
Discharge Diet: No Restrictions Discharge Activity: Return to Normal Activity, May Drive - 24 hours or more after surgery, May Shower May resume sexual activity in: 1 week - Nothing in the vagina for 1 week including no tub baths or hot tubs Weight Bearing Status: Weight bearing as tolerated Call your doctor if you observe: Fever of 101 or Higher, Change in Color, Inability to urinate, Inability to have a bowel movement, Using more than one pad per hour, Shortness of breath, Dizziness, Fainting spells, Chest pain, Increased palpitations (irregular heartbeat), Calf discomfort, Uncontrolled pain Allergies/Adverse Reactions: Allergies codeine Allergy (Verified 01/19/20 10:13) Rash morphine Allergy (Verified 01/19/20 10:13) Rash venom-honey bee [bee venom (honey bee)] Allergy (Verified 01/19/20 10:13) Unknown Medications to take at Discharge Duloxetine HCl 60 mg PO QHS 02/10/17 Multivitamin with Minerals [Multiple Vitamin] 1 each PO DAILY 02/10/18 Omeprazole 40 mg PO QHS 01/13/20 Orders to be completed after discharge: COVID 19 AG RAPID (RN COLLECT) Time Frame: 1 Day, Facility: [facility], Location: Laboratory Primary Care Physician: Maria C Silverio MD [Primary Care Provider] - Test Results: Test results from this visit will be discussed in further detail at your follow-up appointment, if applicable. Please Follow Up With: Priyanka Mariano DO When: 1-2 weeks
[2020-01-20 07:09] LABS: Hemoglobin 11.4 g/dL (12.0-15.0); Mean Corpuscular Hgb 24.5 pg (27.0-32.0); Mean Corpuscular Volume 81.5 fL (81-99); Mean Platelet Vol. 9.2 fl (6.2-12.0); Platelet Count 400 K/mm3 (150-450); RBC Distribution Width CV 16.4 % (11.6-14.6); RBC Distribution Width SD 48.5 fl (35.1-43.9); Red Blood Count 4.66 M/mm3 (4.2-5.4); White Blood Count 10.1 K/mm3 (4.4-11.0)
[2020-01-20 07:29] VITALS: O2SAT 89
[2020-01-20 07:33] LABS: Anion Gap 7 (5-15); BUN 10 mg/dL (7-18); BUN/Creat Ratio 8.8 RATIO (10-20); Calcium,Total 8.7 mg/dL (8.5-10.1); Chloride 106 mmol/L (98-107); Creatinine, Serum 1.13 mg/dL (0.55-1.02); EST Glomerular Filtration Rate 54 mL/min (>60); Est Glom Filt Rate - Afr Amer 66 mL/min (>60); Glucose 116 mg/dL (74-106); Potassium 3.6 mmol/L (3.5-5.1); Sodium Level 140 mmol/L (136-145)
[2020-01-20 08:00] VITALS: BP 119/77; PULSE 99; RESP 16; TEMP 36.7; O2SAT 95
[2020-01-20 08:16] VITALS: O2SAT 88; O2SAT 95
--- NOTE | 2020-01-20 08:43 | PCM.PROGNOTE ---
Patient Problems: Active and Suspected Problems PMB (postmenopausal bleeding) (Acute) Uterine polyp (Acute) Subjective: Chief complaint: Follow-up after consultation for postoperative hypoxia. Patient seen and examined. No events overnight. Today, she is feeling better, she is off oxygen at this time. She mentioned that she was a little bit short of breath when she walked and her pulse ox dropped down to 88%. Other vital signs are stable. - Physical Exam Vitals/I&O's: Vital Signs Temp Pulse Resp BP Pulse Ox 98.1 F 99 16 119/77 95 01/20/20 08:00 01/20/20 08:00 01/20/20 08:00 01/20/20 08:00 01/20/20 08:16 Oxygen Flow Rate (L/min) 2 Oxygen Delivery Method Room Air Weight: 188 lb Body Mass Index (BMI) 32.2 Intake and Output for Last 24 Hours 01/18/20 01/19/20 01/20/20 23:59 23:59 23:59 Intake Total 2745 / 2745 450 / 450 Output Total 800 / 800 1200 / 1200 Balance 1945 / 1945 -750 / -750 General: Alert, Oriented x3, Cooperative, No apparent distress HEENT: Atraumatic, PERRLA, EOMI, Normocephalic Oral: Moist Mucosa, No Gingival or Mucosal Lesions/ Ulcerations Neck: Supple, No JVD, Negative Carotid Bruits, Trachea Midline, Thyroid Normal Size and Texture Lungs: Clear to auscultation, Normal air movement, No rhonchi, No wheeze, No rales Cardiovascular: Regular rate, Regular Rhythm, Normal S1, Normal S2, PMI Normal Abdomen: Bowel Sounds Present, Soft, Non Tender, Non-Distended, No Hepato-splenomegaly Extremities: No clubbing, No cyanosis, No edema Skin: No rashes, No breakdown Lymphatic: No Cervical, Supraclavicular, or Inguinal Adenopathy Neurological: Cranial nerves II-XII grossly intact, Neuro grossly intact Psych/Mental Status: Normal Affect, Appropriate, Alert and oriented to time, place, person, mood and affect Microbiology Past 72 Hours 01/18/20 13:34 Mucosa - Nose SARS-CoV-2 Antigen (Rapid) - Final Laboratory Results 01/19/20 10:10: Urine Test Negative 01/19/20 10:20: WBC 7.2, RBC 4.81, Hgb 11.6 L, Hct 39.1, MCV 81.3, MCH 24.1 L, MCHC 29.7 L, RDW Std Deviation 48.5 H, RDW Coeff of Mignon 16.4 H, Plt Count 405, MPV 8.7 01/19/20 10:20: Blood Type A POSITIVE, Antibody Screen NEGATIVE 01/19/20 21:14: B-Natriuretic Peptide 103.7 H 01/19/20 21:14: Sodium 139, Potassium 4.0, Chloride 107, Carbon Dioxide 25.0, Anion Gap 7, BUN 8, Creatinine 1.23 H, Estim Creat Clear Calc 47.78, Est GFR (MDRD) Af Amer 60, Est GFR (MDRD) Non-Af 49 L, BUN/Creatinine Ratio 6.5 L, Glucose 226 H, Calcium 8.7, Total Bilirubin 0.30, AST 18, ALT 28, Alkaline Phosphatase 88, Total Protein 7.0, Albumin 3.2, Globulin 3.8, Albumin/Globulin Ratio 0.8 L 01/20/20 06:25: WBC 10.1, RBC 4.66, Hgb 11.4 L, Hct 38.0, MCV 81.5, MCH 24.5 L, MCHC 30.0 L, RDW Std Deviation 48.5 H, RDW Coeff of Mignon 16.4 H, Plt Count 400, MPV 9.2 01/20/20 06:25: Sodium 140, Potassium 3.6, Chloride 106, Carbon Dioxide 27.0, Anion Gap 7, BUN 10, Creatinine 1.13 H, Estim Creat Clear Calc 52.00, Est GFR (MDRD) Af Amer 66, Est GFR (MDRD) Non-Af 54 L, BUN/Creatinine Ratio 8.8 L, Glucose 116 H, Calcium 8.7 Current Medications Duloxetine HCl (Duloxetine Hcl 60 Mg Capsule) 60 mg PO QHS [facility] Last Admin: 01/19/20 21:25 Dose: 60 mg Documented by: Ibuprofen (Ibuprofen 600 Mg Tablet) 600 mg PO Q6H PRN PRN PRN Reason: Pain Score 1-10 Last Admin: 01/19/20 21:25 Dose: 600 mg Documented by: Pantoprazole Sodium (Pantoprazole Sodium 40 Mg Tablet) 40 mg PO QHS [facility] Last Admin: 01/19/20 21:25 Dose: 40 mg Documented by: Sodium Chloride (0.9% Saline Lock 10 Ml Syringe) 10 - 40 ml IV UD PRN PRN Reason: SALINE FLUSH Medical Necessity - Tobacco Use Smoking Status: Never smoker Tobacco Use: Non-smoker Assessment/Plan All Active Problems PMB (postmenopausal bleeding) (Acute) Uterine polyp (Acute) This is a 49 years old female patient underwent polypectomy and hysterectomy with D&C for postmenopausal bleeding and uterine polyps and postoperatively, she developed hypoxia and we were consulted for medical management. #1 postoperative hypoxia: Likely due to respiratory depression secondary anesthesia in addition to possible volume overload. Chest x-ray showed no acute findings. Patient received 1 dose of IV Lasix. COVID-19 antigen was negative. Patient denied smoking or history of COPD. Today, she is feeling better. She is off oxygen. Pulse ox dropped down to 88% with ambulation but not less than that. She is not a candidate for home oxygen. For medical standpoint, patient can be discharged, no further testing or treatment. #2 status post hysterectomy/polypectomy with D&C: This was done for postmenopausal bleeding and uterine polyps. Postoperative day 1. Routine blood work was reviewed, unremarkable, hemoglobin and hematocrit are stable. Patient denied any pain. #3 depression: Continue Cymbalta. #4 GERD: Continue PPI. #5 DVT prophylaxis: Risk patient, no prophylaxis indicated. This note was generated with [employer] software. It may contain incorrect words, spelling, and punctuation that were not noted in checking the note before signing. Inpatient E&M: 93497 Subs Hosp L2
== END 2020-01-20 12:31 | disposition home or self-care (01) ==
LOC: SDC 19:04 → MS3 19:04
PROVIDERS: Internal Medicine; Admitting Provider Obstetrics & Gynecology; PCP Internal Medicine; Referring Provider Obstetrics & Gynecology; Visit Provider Obstetrics & Gynecology
PROC: 0UB98ZZ Excision of Uterus, Via Natural or Artificial Opening Endoscopic (ICD-10-PCS; CPT 58558; principal; 2020-01-19 10:55)
DX: N84.0 Polyp of corpus uteri (principal); N95.0 Postmenopausal bleeding; M79.7 Fibromyalgia; M06.9 Rheumatoid arthritis, unspecified; R07.1 Chest pain on breathing; Z79.899 Other long term (current) drug therapy; G25.81 Restless legs syndrome; R09.02 Hypoxemia; K21.9 Gastro-esophageal reflux disease without esophagitis; F32.9 Major depressive disorder, single episode, unspecified
CPT/HCPCS: 00952; 58558; 36415; 71045; 80048; 80053; 81025; 83880; 85027; 86850; 86900; 86901; 87426; 88305; 94640; 94762; 96374; 99218; C9803; J7120; G0378; G0379; J1940

== ENCOUNTER 2020-10-17 16:30 | Emergency (ER) | payer OTHER, SELFPAY ==
[2020-10-17 16:31] VITALS: BP 141/91; PULSE 98; RESP 18; TEMP 36.9; O2SAT 97
--- NOTE | 2020-10-17 16:32 | RAD_ITS ---
STUDY: X-RAY CHEST REASON FOR EXAM: Female, 50 years old. syncope TECHNIQUE: Single frontal view of the chest. COMPARISON: 01/19/2020. FINDINGS: The lungs are clear and expanded. There is no demonstrated pleural abnormality. Normal size heart. Normal mediastinum and di. Normal visualized pulmonary arteries. Normal visualized aortic arch and descending thoracic aorta. Normal visualized thoracic spine. Normal visualized ribs, clavicles, and shoulders. There is no demonstrated abnormality of the visualized soft tissue structures of the upper abdomen. RAD/Chest 1 View IMPRESSION: Normal x-ray examination of the chest. Electronically Signed: Ninfa Turcios MD at 17:43 EDT Tel , Service support ,
--- NOTE | 2020-10-17 16:32 | EKG12_ITS ---
Test Reason : SYNCOPE Blood Pressure : / mmHG Vent. Rate : 079 BPM Atrial Rate : 079 BPM P-R Int : 106 ms QRS Dur : 066 ms QT Int : 386 ms P-R-T Axes : 043 039 015 degrees QTc Int : 442 ms Sinus rhythm with short AR Otherwise normal ECG Confirmed by MAG JACOBO, STANLEY ([id number]), news editor JUDY MCINTOSH ([id number]) on 10/22/2020 1:00:35 PM Referred By: MARCELINO/RU Confirmed By:STANLEY HATHAWAY MD
--- NOTE | 2020-10-17 16:40 | RAD_ITS ---
STUDY: X-RAY - RIGHT ANKLE REASON FOR EXAM: Female, 50 years old. injury TECHNIQUE: 3 view(s) of the ankle. COMPARISON: None. FINDINGS: No acute fracture or dislocation. No destructive bone changes. Joint spaces are well-maintained. Normal alignment. Soft tissues are unremarkable. No radiopaque foreign body or soft tissue gas. RAD/Ankle min 3 Views IMPRESSION: Normal x-ray examination of the ankle. Electronically Signed: Ninfa Turcios MD at 17:50 EDT Tel , Service support ,
--- NOTE | 2020-10-17 16:40 | RAD_ITS ---
STUDY: X-RAY - RIGHT KNEE REASON FOR EXAM: Female, 50 years old. injury TECHNIQUE: 3 view(s) of the knee. COMPARISON: None. FINDINGS: No acute fracture or dislocation. No destructive bone changes. Joint spaces are well-maintained. Normal alignment. Soft tissues are unremarkable. No radiopaque foreign body or soft tissue gas. RAD/Knee 3 Views IMPRESSION: Normal x-ray examination of the knee. Electronically Signed: Ninfa Turcios MD at 17:45 EDT Tel , Service support ,
[2020-10-17 17:03] LABS: Absolute Neutrophil Count 6.4 X10^3/uL (2.0-7.7); Basophil# 0.09 X10^3/uL; Eosinophil# 0.13 X10^3/uL; Eosinophils% 1.5 % (0-5); Hemoglobin 11.3 g/dL (12.0-15.0); Lymphocyte % 19.1 % (19-41); Mean Corp Hgb Conc 30.5 g/dL (32-36); Mean Corpuscular Hgb 24.6 pg (27.0-32.0); Mean Corpuscular Volume 80.4 fL (81-99); Mean Platelet Vol. 9.4 fl (6.2-12.0); Monocyte# 0.54 X10^3/uL; Monocyte% 6.1 % (0-10); NRBC Flagged by Analyzer 0 % (0-5); Neutrophil # 6.41 X10^3/uL (2.7-7.7); Platelet Count 362 K/mm3 (150-450); RBC Distribution Width CV 16.5 % (11.6-14.6); RBC Distribution Width SD 47.9 fl (35.1-43.9); White Blood Count 8.9 K/mm3 (4.4-11.0)
[2020-10-17 17:10] LABS: Anion Gap 5 (5-15); BUN 14 mg/dL (7-18); BUN/Creat Ratio 13.3 RATIO (10-20); Chloride 108 mmol/L (98-107); Creatinine, Serum 1.05 mg/dL (0.55-1.02); EST Glomerular Filtration Rate 59 mL/min (>60); Est Glom Filt Rate - Afr Amer 71 mL/min (>60); Estimated Creatinine Clearance 55.35 ml/min; Glucose 111 mg/dL (74-106); Potassium 3.8 mmol/L (3.5-5.1); Sodium Level 139 mmol/L (136-145)
--- NOTE | 2020-10-17 17:23 | EDS_ITS ---
HPI History of Present Illness Chief Complaint: Syncope Detail of Chief Complaint: Near syncopal episode and fall Informant: patient and family Narrative Narrative: Patient presents to the emergency department with a fall that occurred earlier today approximately 3 PM. Patient states that she was walking outside with her grandchildren when she began feeling lightheaded and fell forward. Patient was able to place her hand in front of her head and does not believe she hit her head. She does not believe she lost consciousness. Patient injured her right knee. Patient unable to bear weight afterwards. Patient states that she is not felt well over the last 8 days since starting Augmentin for sore throat. Patient states that she had a COVID-19 test last week that was negative. Patient is also fully vaccinated. Patient denies any chest pain or shortness of breath. She denies any tachycardia. Prior similar symptoms: No PFSH PFSH Medical History (Updated 10/17/20 @ 19:[address] Edwige Peterson, ) Cancer Fibromyalgia Rheumatoid arthritis Home Medications duloxetine 60 mg PO QHS 02/10/17 [History Last Taken 11/10/18] multivitamin with minerals [Multiple Vitamin] 1 ea PO DAILY 02/10/18 [History Last Taken 11/10/18] omeprazole 40 mg PO QHS 01/13/20 [History Last Taken Unknown] hydrocodone-acetaminophen 1 tab PO Q4H PRN PRN 2 Days #10 tablet 10/17/20 [Rx Last Taken Unknown] Allergy/AdvReac Type Severity Reaction Status Date / Time codeine Allergy Rash Verified 10/17/20 16:31 morphine Allergy Rash Verified 10/17/20 16:31 venom-honey bee Allergy Unknown Verified 10/17/20 16:31 [bee venom (honey bee)] Social History Smoking Status: Never smoker ROS ROS ED ROS Narrative Dizziness Constitutional Constitutional ED: Reports systems reviewed and no addt'l complaints, except as documented; Denies body ache(s), change in weight or chills Eyes Eyes: Denies acute decrease in peripheral vision, change in vision, double vision or loss of vision ENT ENT ED: Reports none; Denies ear pain, lip swelling, loss taste/smell, neck pain, otalgia or sore throat Cardiovascular Cardiovascular: Reports none; Denies abdominal pain, chest pain with activity, leg edema, lightheadedness, palpitations, rapid heart rate or syncope Respiratory/Chest Respiratory/Chest: Reports none; Denies change in mental status, dry cough, dyspnea, hemoptysis, shortness of breath at rest or shortness of breath with exertion Gastrointestinal Gastrointestinal: Reports none; Denies abdominal pain, change in stool character, diarrhea, hematemesis, hematochezia, melena, rectal bleeding or vomiting Genitourinary Genitourinary ED: Reports none; Denies abdominal discomfort, anuria, dysuria, genital pain or polyuria Musculoskeletal Musculoskeletal: Reports none and other Details: Right knee pain ; Denies arthralgias, back pain, difficulty walking, extremity pain, muscle weakness or myalgias Integumentary Reports none; Denies abscess or rash Neurologic Neurologic: Reports none; Denies abnormal gait, confusion, focal weakness, frequent falls, headache(s), loss of vision, numbness, paresthesias, radicular pain, vertigo or weakness Psychiatric Psychiatric: Reports systems reviewed and no addt'l complaints, except as documented and none; Denies behavioral changes, confusion, difficulty concentrating, hallucinations, suicidal ideation, tactile hallucinations or visual hallucinations Endocrine Endocrinology: Denies none, cold intolerance, excessive sweating, fatigue or heat intolerance Hematologic/Lymphatic Hematologic/Lymphatic: Reports none; Denies anemia, easy bleeding or easy bruising Allergic/Immunologic Allergic/Immunologic ED: Denies as per HPI, none, lip swelling, mouth swelling, throat swelling, tongue swelling or hives EXAM Physical Exam Const Vital Signs: 10/17/20 16:31 10/17/20 17:18 10/17/20 18:08 Temperature 98.5 F Temperature Source Temporal Pulse Rate 98 Pulse Rate [Lying] 79 Pulse Rate [Sitting] 83 Pulse Rate [Standing] 91 Respiratory Rate 18 Respiratory Pattern Normal Blood Pressure 141/91 H Blood Pressure [Lying] 130/78 H Blood Pressure [Sitting] 134/89 H Blood Pressure [Standing] 134/94 H Blood Pressure Mean 107 Blood Pressure Mean [Lying] 95 Blood Pressure Mean [Sitting] 104 Blood Pressure Mean [Standing] 107 Pulse Ox 97 Oxygen Delivery Method Room Air Positive well nourished and well developed General Appearance ED: well developed and NAD HEENT Reports TM's clear and moist mucous membranes normocephalic and atraumatic; Negative for trauma or tenderness Tympanic Membrane ED: Yes TM's clear Eyes PERRL and EOMs intact bilaterally General Eye ED: Negative for pale conjunctiva or scleral icterus Neck no lymphadenopathy, supple and no JVD General: Negative for tenderness Chest Wall inspection of chest normal and palpation of chest normal Chest: Negative for tenderness Resp normal respiratory effort and clear to auscultation bilaterally Effort and Inspection: Negative for respiratory distress or pain with movement Auscultation: Negative for rhonchi, wheezes or diminished lung sounds Cardio regular rate, regular rhythm, S1 normal heart sound, S2 normal heart sound and no murmurs Peripheral Pulses: pulses 2+ throughout GI normal to inspection, nondistended, normoactive bowel sounds, soft to palpation, non-tender, non-distended and no masses Back/Spine no CVA tenderness and no thoracic nor lumbar tenderness Extremity Extremity Narrative: Right knee-patient has some amount of soft tissue swelling over the medial aspect of the knee just inferior to the patella with tenderness palpation on exam. She has limited flexion extension secondary to pain. Neurovascular intact distally. General Extremety ED: Negative for edema General Extremity: Negative for edema Neuro oriented x3, CN's II-XII intact bilaterally, no sensory deficits noted and gait normal Sensorium / Orientation: awake, alert, oriented to person, oriented to place and oriented to time Motor Exam: strength 5/5 throughout and strength abnormal Psych mental status grossly normal Skin no rashes or lesions noted and no wounds MDM MDM MDM Narrative Medical decision making narrative: IV line established on arrival patient placed on quality assurance monitor final. Work-up in department is unremarkable. She is currently not dizzy or symptomatic in any way. Etiology of her dizziness is unclear. Patient will be given a knee immobilizer as well as crutches and an air splint for her ankle. She is to follow-up with her primary care physician in 3 to 5 days. Patient also referred to orthopedics for follow-up. Patient advised to return if chest pain, shortness of breath, persistent syncope, or condition should worsen anyway. Lab Data Attestation: I reviewed the patient's lab results. Labs: Laboratory Results - last 24 hr 10/17/20 10/17/20 10/17/20 16:41 16:41 16:41 WBC 8.9 RBC 4.60 Hgb 11.3 L Hct 37.0 MCV 80.4 L MCH 24.6 L MCHC 30.5 L RDW Std Deviation 47.9 H RDW Coeff of Mignon 16.5 H Plt Count 362 MPV 9.4 Immature Gran % (Auto) 0.300 Neut % (Auto) 72.0 H Lymph % (Auto) 19.1 [place] % (Auto) 6.1 Eos % (Auto) 1.5 Baso % (Auto) 1.0 Absolute Neuts (auto) 6.4 Absolute Lymphs (auto) 1.70 Nucleated RBC % 0 Sodium 139 Potassium 3.8 Chloride 108 H Carbon Dioxide 26.0 Anion Gap 5 BUN 14 Creatinine 1.05 H Estim Creat Clear Calc 55.35 Est GFR (MDRD) Af Amer 71 Est GFR (MDRD) Non-Af 59 L BUN/Creatinine Ratio 13.3 Glucose 111 H Calcium 9.0 Troponin I High Sens 4 Radiography Chest X-Ray - ED: 1 View Diagnostic Testing: Radiology Impression Chest X-Ray 10/17/20 16:32 IMPRESSION: Normal x-ray examination of the chest. Electronically Signed: Ninfa Turcios MD at 17:43 EDT Tel , Service support , Ankle X-Ray 10/17/20 16:40 IMPRESSION: Normal x-ray examination of the ankle. Electronically Signed: Ninfa Turcios MD at 17:50 EDT Tel , Service support , Knee X-Ray 10/17/20 16:40 IMPRESSION: Normal x-ray examination of the knee. Electronically Signed: Ninfa Turcios MD at 17:45 EDT Tel , Service support , 1 view chest x-ray obtained interpreted by myself as no acute disease process. Radiology in agreement. 4 view x-rays of the right knee obtained interpreted by myself as no acute fractures. Radiology in agreement. Patient also had 3 view x-rays of right ankle which interpreted by myself as no acute fracture. Radiology in agreement. EKG Initial EKG: Attestation: I personally reviewed and interpreted this EKG as follows: Comments: Sinus rhythm with a ventricular rate of 79 bpm with a short MI Prior EKG tracings: available for review and not available for review Prior: Unchanged Discharge Plan Triage Chief Complaint: Syncope ED Provider: Edwige Peterson Dx/Rx/DC Orders Clinical Impression: Dizziness, Fall, Contusion of knee, Right ankle sprain, Right knee sprain Instructions: Dizziness Fainting Poss Causes, ED Fall with Uncertain Cause, ED Knee Sprain, ED Near-Fainting, Uncertain Cause, ED Ankle Sprain (Adult) Prescriptions: New hydrocodone-acetaminophen [hydrocodone-acetaminophen] 1 TABLET tablet 1 tab PO Q4H PRN PRN (Reason: Pain) 2 Days Qty: 10 RF: 0 No Action duloxetine 30 MG capsule,delayed release(DR/EC) 60 mg PO QHS RF: 0 multivitamin with minerals [Multiple Vitamin-Minerals] 1 EACH tablet 1 ea PO DAILY RF: 0 omeprazole 40 MG capsule,delayed release(DR/EC) 40 mg PO QHS RF: 0 Primary Care Provider: Maria C Silverio Referrals: Maria C Silverio MD [Primary Care Provider] - 3-5 Days José Miguel Taveras DO [STAFF PHYSICIAN] - 3-5 Days Disposition Disposition: Home, Self Care
[2020-10-17 18:08] VITALS: BP 130/78; BP 134/89; BP 134/94; PULSE 79; PULSE 83; PULSE 91
[2020-10-17 19:12] LABS: Troponin-I HS 4 pg/mL (3.0-54.0)
[2020-10-17] MEDS: HYDROcodone Bitartrate/Apap 5/325 Tablet PO (20:08)
== END 2020-10-17 20:42 | disposition home or self-care (01) ==
PROVIDERS: Emergency Provider Emergency Medicine; PCP Internal Medicine
DX: R42 Dizziness and giddiness (principal); M06.9 Rheumatoid arthritis, unspecified; S80.01XA Contusion of right knee, initial encounter; S83.91XA Sprain of unspecified site of right knee, initial encounter; S93.401A Sprain of unspecified ligament of right ankle, initial encounter; Y93.01 Activity, walking, marching and hiking; W18.30XA Fall on same level, unspecified, initial encounter; Y99.9 Unspecified external cause status
CPT/HCPCS: 71045; 73562; 73610; 80048; 84484; 85025; 93005; 99285; A4216

== ENCOUNTER → 2021-07-02 | Outpatient (CLI) | payer MEDICAID, SELFPAY ==
--- NOTE | 2021-07-02 07:28 | BI_ITS ---
MAMMOGRAPHY - BILATERAL SCREENING REASON FOR EXAM: Female, 50 years old. Routine annual screening examination. PERTINENT HISTORY: Non-contributory. History of prior right breast cyst. TECHNIQUE: Digital bilateral breast emily (3D mammographic acquisition) in the CC and MLO projections. 2-D mediolateral oblique (MLO) and craniocaudad (CC) views of both breasts were obtained. CAD: Full Field Digital Mammography with Computer Added Detection was performed. COMPARISON: Comparison is made with prior abdomen examination dated 03/05/2020. FINDINGS: Breast Composition: There are scattered areas of fibroglandular density. There is a 6.7 mm x 5.9 mm well-defined nodular density in the upper axillary region of the left breast. There is also evidence of a 8.7 mm x 10.3 mm well-defined nodule in the retroareolar region of the right breast as well as a 7.1 mm well-defined nodule in the central medial portion of the right breast. Correlation with ultrasound is recommended. No other significant abnormalities are identified. BI/SCRN MAMM (CAD)W/EMILY BILAT IMPRESSION: Small bilateral well-defined nodules as described. Follow-up with ultrasound recommended. ASSESSMENT CATEGORY: BIRADS Category 0: Incomplete. Need additional imaging evaluation. A letter regarding these results will be sent to the patient by the facility within 30 days. Approximately 10% of breast cancers are not detected by mammography. A normal mammogram should not delay biopsy of a clinically suspicious abnormality. [id number] Electronically Signed: Gregory Spear MD at 14:43 EDT ,
== END | disposition home or self-care (01) ==
PROVIDERS: PCP Internal Medicine; Visit Provider Internal Medicine
DX: Z12.31 Encounter for screening mammogram for malignant neoplasm of breast (principal)
CPT/HCPCS: 77063; 77067

== ENCOUNTER 2021-07-09 08:30 | Outpatient (RCR) | payer MEDICAID, SELFPAY ==
--- NOTE | 2021-06-28 08:32 | HP.PTEVAL_ITS ---
Patient's Visit Information OTIS DURAN is a 50 year old F referred to Physical Therapy by Dr. La Dobson MD with a diagnosis of MULTIPLE SITE JOINT PAIN. Date of Evaluation: 06/28/21 Physical Therapist: Santa Rowland, PT, Cert MDT - Visit Plan Frequency: 2-3x /Week Duration: 4-6 Weeks Plan: *RA*. AQUATIC THERAPY ONCE A WK TO DECREASE PAIN, POSTURE CORRECTION, STRETCHING AND STRENGTHENING. AND LAND PT ONCE A WEEK FOR R SHLD US, ROM AND STRENGTHENING WITH HEP INSTRUCTION. - Subjective Diagnosis: MULTIPLE SITE JOINT PAIN. Work/Leisure: [employer]. LIFTS UP TO 25 OR 30 LBS. 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 Disability: NO - APPLIED AND WAS DENIED ABOUT 3 YEARS AGO. Present symptoms: RIGHT SHLD PAIN AND LIMITED MOBILITY. GENERALIZED PAIN ALL OVER. PATIENTS CHIEF CONCERN IS HER RIGHT SHLD AND REPORTS IT IS NOT A NEW PROBLEM. WANTS TO ADDRESS GENERALIZED JOINT PAIN TOO. HAS A MEMBERSHIP AT [employer] THROUGH WORK. Present since: CHRONIC. DX'D WITH RA AND FIBRO ABOUT 5 YEARS AGO. Pain Scale: Worst - 9/10 Least - 4/10. Currently: 08/18. Commenced as a result of: RA AND FIBRO. Symptoms at onset: STROKE LIKE SX'S IN RIGHT UE AND LE - NUMBNESS AND TINGLING. Worse: RAIN, HUMIDITY, SUDDEN CHANGE OF WEATHER, STEPS, WALKING, I CAN'T DO LAUNDRY, WORK AT TIMES. Better: NOTHING BUT ON CYMBALTA AND GABAPENTIN. PRETTY MUCH JUST RESTING. Disturbed sleep: YES. Previous history/Previous treatment: PT ABOUT 3 YEARS AGO - AQUATIC THERAPY - HELPFUL. Dizziness: SOMETIMES. Tinnitis: NO. Nausea: NO. Shortness of Breath: YES - CHRONIC. Difficulty Swollowing: SOMETIMES (REPORTS HER PCP IS AWARE). Gait: SOMETIMES I LIMP. TIME AND DISTANCE LIMITED. Accidents: NO. Unexplained weight loss: NO. Imaging: R KNEE AND ANKLE X-RAYS FROM FALL IN YARD OCT 2020 - STILL HURTS SOMETIMES. PMH/Recent major surgery: RA AND FIBROMYALGIA, SLEEP APNEA, SJOGRENS - Objective Sitting/Standing Posture: POOR. FH. RS'S. NO TORTICOLLIS OR LUMBAR LATERAL SHIFT. Active Correction of posture: NE. Other Observations: THIS PATIENT AMBULATES INDEP'LY INTO PT WITHOUT ANY ASSISTIVE DEVICES, LOB OR LIMPING TODAY BUT WITH DECREASED CADANCE. PATIENT IS ABLE TO INDEP;LY TRANSFER FROM SIT TO STAND WITHOUT UE ASSIST. Sensory deficit: RIGHT UE AND RIGHT LE DECREASED LIGHT TOUCH SENSATION COMPARED TO L. ROM deficit: TIGHT PARK LE HS'S AND GASTROC SOLEUS COMPLEX'S. OTHERWISE PARK UE AND LE ROM WFL BUT TESTING PROVOKES PAIN ESPECIALLY IN THE RIGHT SHLD. Motor deficit: L UE AND LE GROSSLY 5/5 EXCEPT L SHLD AND HIP 4/5. RIGHT UE AND LE GROSSLY 4/5. Dural Signs: POSITIVE PARK LE'S. Lumbar mvmt loss: flex - MOD. ext - MOD. R SG - MOD. L SG - MOD. CERVICAL MVMT LOSS: CERVICAL ROM WFL ALL PLANES BUT INCREASED PAIN WITH L SB TESTING. PATIENT C/O INCREASED PAIN WITH LUMBAR ROM TESTING ALL PLANES. Core strength: POOR. Palpation: GENERALIZED SPINE, UE AND LE TENDERNESS ESPECIALLY RIGHT KNEE. - Balance/Special Test Scores Quick DASH Score: 52.2725 TUG Test Time Seconds: 12.70 30 Second Chair Rise Test Seconds: 6 - Goals Goal 1:: DECREASE C/O R SHLD AND GENERALIZED JOINT PAIN Goal Time Frame: 4-6 Weeks Goal 2:: IMPROVE STANDING, WALKING, ADL AND WORK FUNCTION Goal Time Frame: 4-6 Weeks Goal 3:: INSTRUCT IN PROPHYLAXIS Goal Time Frame: 4-6 Weeks - Anticipated Interventions Patient/Client Instruction: Educate patient on: Condition, Plan of Care, Risk Factors For the Purpose of:: To improve self management Therapeutic Exercise to Include: Strength training, Body mechanics, Postural training, Flexibilty training, Neuromotor development, In an aquatic setting, Dynamic Lumbar Stabilization, Scapular Strength/Stabilization For the Purpose of:: To decrease pain, To increase ROM, To improve muscle performance and motor function, To increase tolerance to activity/condition/position, To improve ability of physical actions for home/community/work/leisure Cryotherapy (ice pack, ice massage): Yes Thermo therapy (hot pack): Yes Ultrasound (thermal/non thermal): Yes For the Purpose of:: To decrease pain, To improve nutrient delivery to tissue Thank you for the opportunity to evaluate your patient. For Medicare and Medicare HMO plans, please review the plan of care and approve it. It will need to be FAXED BACK to us at [phone] for Medicare purposes. For Medicare only, by signing this I certify the plan of care. Please let me know if there are questions or concerns regarding this plan of care. Physician Signature: Date:
--- NOTE | 2021-11-19 12:13 | HP.PT.NRP ---
OTIS DURAN was seen in my office for initial evaluation on 06/28/21. The following Plan of Care was established for this patient: Initial Frequency: 2-3x /Week Initial Duration: 4-6 Weeks Patient/Client Instruction: Educate patient on: Condition, Plan of Care, Risk Factors For the Purpose of:: To improve self management Therapeutic Exercise to Include: Strength training, Body mechanics, Postural training, Flexibilty training, Neuromotor development, In an aquatic setting, Dynamic Lumbar Stabilization, Scapular Strength/Stabilization For the Purpose of:: To decrease pain, To increase ROM, To improve muscle performance and motor function, To increase tolerance to activity/condition/position, To improve ability of physical actions for home/community/work/leisure Cryotherapy (ice pack, ice massage): Yes Thermo therapy (hot pack): Yes Ultrasound (thermal/non thermal): Yes For the Purpose of:: To decrease pain, To improve nutrient delivery to tissue This patient was last seen in our office 07/09/21. Pertinent comments regarding their Physical therapy will appear below: This patient has not returned to Physical Therapy and is appropriate to return to MD for further follow-up as needed. At this point I will be discontinuing this patient from physical therapy. I would be happy to see this patient again in the future if found appropriate by the physician. Thank you! Santa Rowland, PT, Cert MDT Balance/Gait/Functional tests - Balance/Special Test Scores Quick DASH Score: 52.2725 TUG Test Time Seconds: 12.70 Tug Test: <20 sec.=mostly independent 30 Second Chair Rise Test Seconds: 6
== END 2021-07-09 19:00 | disposition home or self-care (01) ==
LOC: PT 08:30
PROVIDERS: PCP Internal Medicine; Referring Provider Internal Medicine; Visit Provider Internal Medicine
DX: M25.50 Pain in unspecified joint (principal)
CPT/HCPCS: 97162; 97530

== ENCOUNTER → 2021-07-16 | Outpatient (CLI) | payer MEDICAID, SELFPAY ==
--- NOTE | 2021-07-16 07:56 | US_ITS ---
STUDY: ULTRASOUND BREAST - RIGHT REASON FOR EXAM: Female, 50 years old. Abnormal screening mammogram. TECHNIQUE: Axial and longitudinal images of the RIGHT breast were performed with a high resolution ultrasound transducer. # OF IMAGES: 86 COMPARISON: Comparison is made with prior mammogram dated 07/02/2021 and prior sonogram of the right breast dated 01/26/2017. FINDINGS: RIGHT Breast: There is an 8 mm x 8 mm x 7 mm cyst in the retroareolar region of the right breast. Adjacent to this, there is a 1.1 cm x 0.8 cm x 0.8 cm cyst. There is also evidence of a retroareolar ductal dilatation. IMPRESSION: Small cysts in the retroareolar region of the right breast as well as mildly dilated retroareolar ducts. ASSESSMENT CATEGORY: BIRADS Category 2: Benign. A letter regarding these results will be sent to the patient by the facility within 30 days. Electronically Signed: Gregory Spear MD at 15:10 EDT Reading Location ID and State: [address] [place] [address] , Service support , STUDY: ULTRASOUND BREAST - LEFT REASON FOR EXAM: Female, 50 years old. Abnormal screening mammogram. Palpable lump in the left axilla. TECHNIQUE: Axial and longitudinal images of the LEFT breast were performed with a high resolution ultrasound transducer. # OF IMAGES: 86 COMPARISON: Comparison is made with prior mammogram dated 07/02/2021 and prior sonogram of the left breast dated 01/27/2000 FINDINGS: LEFT Breast: The palpable abnormality in the left axilla corresponds to an 8 mm x 8 mm x 5 mm a benign-appearing lymph node. Incidental note is made of a 8 mm x 7 mm x 7 mm cyst at the 6 o''clock position in the breast at 3 cm from the nipple. US/Breast Limited Unilateral IMPRESSION: The palpable abnormality corresponds to a 8 mm x 8 mm x 5 mm lymph node in the left axilla. Small retroareolar cyst. ASSESSMENT CATEGORY: BIRADS Category 2: Benign. A letter regarding these results will be sent to the patient by the facility within 30 days. Electronically Signed: Gregory Spear MD at 15:12 EDT ,
== END | disposition home or self-care (01) ==
LOC: OPUS 07:52
PROVIDERS: PCP Internal Medicine; Visit Provider Internal Medicine
DX: R92.8 Other abnormal and inconclusive findings on diagnostic imaging of breast (principal)
CPT/HCPCS: 76642

== ENCOUNTER 2021-10-18 06:52 | Day surgery (SDC) | payer BC, MEDICAID, SELFPAY ==
[2021-10-18] VITALS (7 sets, daily range): BP systolic 89–102; BP diastolic 65–77; PULSE 74–97; RESP 16; TEMP 36.4; O2SAT 91–94; BMI 30.2
[2021-10-18] MEDS: Lactated Ringers 1,000 ML 15 ML IV (07:27)
--- NOTE | 2021-10-18 07:39 | H&P.OPEN ---
HPI - General HPI Narrative OTIS DURAN, is a 51 F who presents for screening colonoscopy. Her last colonoscopy was over 10 years ago. She reports no abdominal pain or blood in the stool. [facility] Medical History (Updated 10/15/21 @ 12:07 by Sana Brewer) Anemia Anxiety and depression Bladder disease Cancer CPAP (continuous positive airway pressure) dependence Diverticulitis Easy bruising Eustachian tube dysfunction Fibromyalgia Gastric reflux GERD (gastroesophageal reflux disease) Goiter History of diverticulitis History of edema History of stress test Migraine headache On home oxygen therapy Pain, joint, multiple sites Rheumatoid arthritis Severe obstructive sleep apnea Sjogrens syndrome Wears glasses Home Medications baclofen 10 mg with lidocaine 50 mg 10 mg intrauterine QHS 06/24/21 [History Last Taken Unknown] epinephrine 0.3 mg/0.3 mL injection, auto-injector 0.3 mg IM ONCE 06/24/21 [History Last Taken Unknown] gabapentin 300 mg capsule 900 mg PO QHS 06/24/21 [History Last Taken Unknown] omeprazole 40 mg capsule,delayed release 40 mg PO QHS #30 caps 09/09/21 [Rx Last Taken Unknown] brexpiprazole 0.5 mg tablet (Rexulti) 0.5 mg PO QHS 10/15/21 [History Last Taken Unknown] duloxetine 60 mg capsule,delayed release 60 mg PO QHS 10/15/21 [History Last Taken Unknown] Allergy/AdvReac Type Severity Reaction Status Date / Time codeine Allergy Rash Verified 10/18/21 07:23 morphine Allergy Rash Verified 10/18/21 07:23 venom-honey bee Allergy Unknown Verified 10/18/21 07:23 [bee venom (honey bee)] Family History (Updated 10/08/21 @ 08:56 by Dominique Cardona) Father CVA (cerebral vascular accident) Sleep apnea Asthma Arthritis Low blood sugar Anesthesia complication Depression Respiratory disease Suicide attempt Mother Anemia Bowel disease Depression Grandfather Myocardial infarction Uncle Colon cancer Surgical History (Updated 10/15/21 @ 12:07 by Sana Brewer) H/O dilation and curettage H/O right knee surgery H/O thyroidectomy H/O tubal ligation History of colonoscopy History of endometrial biopsy History of hip surgery Hx of tonsillectomy IUD (intrauterine device) in place Social History household members: spouse current occupation: works at [employer] Smoking Status: Never smoker Electronic Cigarette Use: not used alcohol intake: current alcohol intake frequency: a few times a month substance use type: does not use what type of physical activity do you participate in: none do you feel safe at home: Yes Past Medical/Surgical History Planned Operation Planned Operative Procedure/s: OA COLONOSCOPY S.O.S: No Previous Hospitalizations/Surgeries HX Hospitalizations: No HX of Surgeries: tubal ligation goitor from thyroid removed t&a Any Problems With Anesthesia: Yes (LOW OXYGEN WITH OR 01/2020) You/Your Family Experience Fever (Hyperthermia) With Anes: No Cholinesterase deficiency: No Cardiovascular Hx Chest Pain within Last 2 months: No Hx of Irregular Heartbeat and/or Afib: No Hx Heart Attack: No Hx Congestive Heart Failure: No Hx Rheumatic Fever: No Hx Hypertension: No Hx Internal Defibrillator: No Hx Pacemaker: No Hx Cardiac Catheterization: No Hx Cardiac Surgery/Stents/Etc.: No Hx Stress Test: Yes (2019) Hx Pain in Legs when Walking/Leg Cramps: No Respiratory Chronic Cough: No HX of Shortness of Breath: Yes (sob with 2 flights of stairs) Hoarseness: No Hx Chronic Obstructive Pulmonary Disease (COPD): No Hx Asthma: No Hx Emphysema: No Hx Sleep Apnea: Yes CPAP: Yes (O2 2L) BIPAP: No Hx Respiratory Tract Infection/Cold (presently): No Result (for STOP score): Positive Hx Smoking: No Smoking Status: Never smoker Gastrointestinal Hx Gastroesophageal Reflux: Yes Controlled With Meds: Yes Hx Gastrointestinal Disorders: No Hx Gastrointestinal Bleed: No Hx Ulcer: No Hx Hiatal Hernia: No Difficulty Chewing/Swallowing: No Special diet followed at home: No Hx Unplanned Weight Loss of 20#: No HX Unplanned Weight Gain of 20#: No Neurological Hx Seizures: No HX Syncope/Blackout Spells/Unconsciousness: No Hx Transient Ischemic Attacks (TIA): No Hx Multiple Sclerosis: No Hx Parkinson's Disease: No Hx Head/Neck Injury: No Hx Headaches: Yes (occ) Hx Back Injury/Pain: No Recent Onset of Speech Difficulty: No Restless Legs: Yes Does patient have nerve stimulator: No Blood Disorder Hx Leukemia: No Bleeding Tendencies: No Hx Deep Vein Thrombosis: No Hx High Cholesterol: No Blood Transmitted Disease: No Hx Hepatitis: No Hx Cirrhosis: No Hx Anemia: Yes (in the past) Hx Blood Disorders: No Reproduction : No Is Patient Lactating: No Hx Hysterectomy: No Hx Tubal Ligation: Yes Are You Post Menopause: No Genitourinary Hx Renal Disease: No Musculoskeletal Hx Arthritis: No (fibromyalgia) Hx Rheumatoid Arthritis: Yes Hx Gout: No Recent Onset of an Orthopedic Problem: No Endocrine Hx Diabetes: No Insulin: No Thyroid Disease: No (goiter removed) Hx Steroid Therapy: No Psycho/Social Hx Substance Use: No Hx Alcohol Use: Yes (occ) Hx Anxiety: No Hx Depression: No Mental Illness: No Hx Dementia: No Miscellaneous Hx Cancer: No Recent Exposure to Contagious Disease: No Hx of C-Diff: No Any Loose Teeth: No Allergies codeine Allergy (Verified 10/18/21 07:23) Rash morphine Allergy (Verified 10/18/21 07:23) Rash venom-honey bee [bee venom (honey bee)] Allergy (Verified 10/18/21 07:23) Unknown Maternal: Family History (Updated 10/08/21 @ 08:56 by Dominique Cardona) Father CVA (cerebral vascular accident) Sleep apnea Asthma Arthritis Low blood sugar Anesthesia complication Depression Respiratory disease Suicide attempt Mother Anemia Bowel disease Depression Grandfather Myocardial infarction Uncle Colon cancer No pertinent history Discharge Is Pt Admitted From a Senior Living, or a Longterm: No After D/C, Where Do you Plan to Go: Return Home Vital Signs Vital Signs Vital Signs: 10/18/21 07:24 10/18/21 07:24 Temperature 97.5 F L Temperature Source Temporal Pulse Rate 87 Respiratory Rate 16 Respiratory Pattern Normal Blood Pressure 102/77 Blood Pressure Mean 85 Blood Pressure Source Monitor Blood Pressure Position Semi-Fowlers Blood Pressure Location Right Arm Pulse Ox 94 Oxygen Delivery Method Room Air Weight Weight: 181 lb 12.8 oz Body Mass Index (BMI) 30.2 Physical Exam Const alert and oriented x3 Resp normal respiratory effort and normal air movement Cardio regular rate and regular rhythm GI soft to palpation, non-tender and non-distended Assessment & Plan Assessment/Plan (1) Encounter for screening for malignant neoplasm of colon: PLAN: I explained endoscopy in detail to the patient. I explained the risks including but not limited to stroke or heart attack with anesthesia, perforation of the GI tract, bleeding, infection. I explained that any of these could necessitate further emergency surgery. The patient understands and all questions were answered sufficiently. The patient wishes to proceed with procedure. Michael Corado MD Pager: [facility] [address] [place] [address] [address] [place] [address] Office: Surgery Risks - Colonoscopy Risks Include but are not Limited To: Risks include but are not limited to: Bleeding, perforation requiring further surgery, inability to complete colonoscopy requiring barium enema.
--- NOTE | 2021-10-18 08:15 | OP.COLON_ITS ---
Patient Name: Janet Jack Procedure Date: 10/18/2021 7:50 AM Date of : 1970 Age: 51 Procedure: Colonoscopy Indications: Screening for colorectal malignant neoplasm Providers: Michael Corado MD Medicines: Monitored Anesthesia Care Patient Profile: This is a 51 year old female. Refer to note in patient chart for documentation of history and physical. Last Colonoscopy: more than 10 years ago. Complications: No immediate complications. Procedure: Pre-Anesthesia Assessment: - Prior to the procedure, a History and Physical was performed, and patient medications and allergies were reviewed. The patient's tolerance of previous anesthesia was also reviewed. The risks and benefits of the procedure and the sedation options and risks were discussed with the patient. All questions were answered, and informed consent was obtained. Prior Anticoagulants: The patient has taken no previous anticoagulant or antiplatelet agents. After reviewing the risks and benefits, the patient was deemed in satisfactory condition to undergo the procedure. After I obtained informed consent, the scope was passed under direct vision. Throughout the procedure, the patient's blood pressure, pulse, and oxygen saturations were monitored continuously. The pediatric colonoscope was introduced through the anus and advanced to the cecum, identified by appendiceal orifice and ileocecal valve. The colonoscopy was performed without difficulty. The patient tolerated the procedure well. The quality of the bowel preparation was good. Scope In: 7:56:08 AM Scope Withdrawal Time 0 hours 6 minutes 54 seconds Scope Out: 8:08:24 AM Total Procedure Duration Time 0 hours 12 minutes 16 seconds Findings: The entire examined colon appeared normal on direct and retroflexion views. Impression: - The entire examined colon is normal on direct and retroflexion views. - No specimens collected. Recommendation: - Discharge patient to home. - Resume previous diet. - Continue present medications. - Repeat colonoscopy in 10 years for screening purposes. Procedure Code(s): --- Professional --- 83079, Colonoscopy, flexible; diagnostic, including collection of specimen(s) by brushing or washing, when performed (separate procedure) Diagnosis Code(s): --- Professional --- Z12.11, Encounter for screening for malignant neoplasm of colon CPT copyright 2017 [employer]. All rights reserved. The codes documented in this report are preliminary and upon auditing coder review may be revised to meet current compliance requirements. Michael Corado MD 10/18/2021 8:15:30 AM This report has been signed electronically. Number of Addenda: 0 Note Initiated On: 10/18/2021 7:50 AM
--- NOTE | 2021-10-18 08:16 | OP.CCLET_ITS ---
10/18/2021 La Dobson Md Re : Colonoscopy procedure for Janet Jack Dear Olya This procedure was performed on Monday, October 18, 2021. My impressions and recommendations are as follows: Impressions : - The entire examined colon is normal on direct and retroflexion views. - No specimens collected. Recommendations : - Discharge patient to home. - Resume previous diet. - Continue present medications. - Repeat colonoscopy in 10 years for screening purposes. My findings are described in the full procedure note, which is enclosed. If I can be of further assistance, please feel free to contact me at Doctor phone number(s): , Work: . Sincerely, Michael Corado MD 10/18/2021 8:15:30 AM This report has been signed electronically.
== END 2021-10-18 08:53 | disposition home or self-care (01) ==
LOC: EN 06:53 → AC 06:55
PROVIDERS: PCP Internal Medicine; Referring Provider Internal Medicine; Visit Provider Surgery
PROC: 0DJD8ZZ Inspection of Lower Intestinal Tract, Via Natural or Artificial Opening Endoscopic (ICD-10-PCS; CPT 45378; principal; 2021-10-18 07:55)
DX: Z12.11 Encounter for screening for malignant neoplasm of colon (principal); M79.7 Fibromyalgia; Z80.0 Family history of malignant neoplasm of digestive organs
CPT/HCPCS: 45378; J7120; J2405

== ENCOUNTER → 2021-10-24 | Outpatient (CLI) | payer BC, MEDICAID, SELFPAY ==
[2021-10-24 12:12] LABS: Absolute Lymphocyte Count 2.03 X10^3/uL (0.83-4.51); Absolute Neutrophil Count 4.2 X10^3/uL (2.0-7.7); Basophil# 0.09 X10^3/uL; Basophil% 1.3 % (0-1); Eosinophil# 0.14 X10^3/uL; Hemoglobin 11.7 g/dL (12.0-15.0); Lymphocyte # 2.03 X10^3/ul (0.83-4.51); Lymphocyte % 29.1 % (19-41); Mean Corp Hgb Conc 30.8 g/dL (32-36); Mean Corpuscular Hgb 25.9 pg (27.0-32.0); Mean Corpuscular Volume 84.3 fL (81-99); Mean Platelet Vol. 9.7 fl (6.2-12.0); Monocyte# 0.46 X10^3/uL; Monocyte% 6.6 % (0-10); NRBC Flagged by Analyzer 0 % (0-5); Neutrophil # 4.23 X10^3/uL (2.7-7.7); Neutrophil % 60.7 % (47-70); Platelet Count 372 K/mm3 (150-450); RBC Distribution Width CV 17.1 % (11.6-14.6); Red Blood Count 4.51 M/mm3 (4.2-5.4)
[2021-10-24 12:58] LABS: Hemoglobin A1c 5.9 % (3.8-5.6)
[2021-10-24 13:27] LABS: ALB/GLOB Ratio 0.8 RATIO (0.9-2.4); AST(SGOT) 15 U/L (15-37); Alanine Aminotransfer ALT/SGPT 26 U/L (13-56); Albumin, Serum 3.5 g/dL (3.2-5.0); Alkaline Phosphatase 89 U/L (45-117); Anion Gap 10 (5-15); BUN 16 mg/dL (7-18); BUN/Creat Ratio 15.5 RATIO (10-20); Calcium,Total 9.3 mg/dL (8.5-10.1); Chloride 107 mmol/L (98-107); Cholesterol 165 mg/dL (200); Creatinine, Serum 1.03 mg/dL (0.55-1.02); EST Glomerular Filtration Rate 60 mL/min (>60); Est Glom Filt Rate - Afr Amer 73 mL/min (>60); Globulin 4.2 g/dL (2.2-4.2); Glucose 91 mg/dL (74-106); High Density Lipoprotein 49 mg/dL; Protein, Total 7.7 g/dL (6.4-8.2); Sodium Level 142 mmol/L (136-145); Triglycerides 110 mg/dL; Very Low Density Lipoprotein 22 mg/dL (5-40)
== END | disposition home or self-care (01) ==
LOC: BIMLAB 08:30
PROVIDERS: PCP Internal Medicine; Referring Provider Internal Medicine; Visit Provider Internal Medicine
DX: Z13.6 Encounter for screening for cardiovascular disorders (principal); R73.03 Prediabetes; F41.9 Anxiety disorder, unspecified; F32.A Depression, unspecified
CPT/HCPCS: 36415; 80053; 80061; 83036; 85025

== ENCOUNTER → 2022-01-16 | Outpatient (CLI) | payer BC, MEDICAID, SELFPAY ==
[2022-01-16 10:17] LABS: Red Blood Cells-Urine 0 SEEN /hpf (0-5)
[2022-01-16 12:07] LABS: Color, Urine Yellow (Yellow); Glucose, Dipstick Normal (Normal); Ketone-Dipstick 5 mg/dl (Negative); Leukocyte Esterase-Dipstick 100 /ul (Negative); Nitrite-Dipstick Negative (Negative); Occult Blood-Urine Negative /ul (Negative); Protein-Dipstick Negative (Negative); Specific Gravity, Urine 1.015 (1.002-1.030); Urine Bilirubin Dipstick Negative (Negative); Urine Clarity Sl. Cloudy (Clear); Urine Urobilinogen Normal (Normal)
[2022-01-16 12:18] LABS: Bacteria RARE /hpf (None Seen); Squamous Epithelial Cells - UA 0-5 SEEN /hpf (5-10); White Blood Cells 0-5 SEEN /hpf (0-5)
== END | disposition home or self-care (01) ==
LOC: LABSPEC 10:16
PROVIDERS: PCP Internal Medicine; Referring Provider Physician Assistant; Visit Provider Physician Assistant
DX: N39.0 Urinary tract infection, site not specified (principal)
CPT/HCPCS: 81001; 87086; 87088

== ENCOUNTER 2022-06-30 12:59 | Emergency (ER) | payer BC, MEDICAID, SELFPAY ==
[2022-06-30 13:01] VITALS: BP 142/93; PULSE 68; RESP 16; TEMP 36.1; O2SAT 97; BMI 32.9
--- NOTE | 2022-06-30 14:41 | ART_ITS ---
Reason For Study: Left arm pain Procedure A bilateral upper extremity continuous wave Doppler with analog waveform analysis and segmental pressures. Left Segmental Pressures Left brachial= 122mmHg. Left radial= 130mmHg. Left ulnar= 134mmHg. The left radial waveforms are triphasic. The left ulnar waveforms are triphasic. Right Segmental Pressures Right brachial= 123mmHg. Right radial= 144mmHg. Right ulnar= 136mmHg. The right radial waveforms are triphasic. The right ulnar waveforms are triphasic. Indices The right wrist-brachial index by the radial artery is 1.17. The right wrist-brachial index is by the ulnar artery is 1.11. The leftt wrist-brachial index by the radial artery is 1.06. The left wrist-brachial index is by the ulnar artery is 1.09. VL/Upper Extremity Arterial Study Interpretation Summary Normal right upper extremity resting radial and ulnar artery to brachial index of 1.17 and 1.11 respectively. Normal triphasic Doppler waveforms. Normal left upper extremity resting radial and ulnar artery to brachial index o f 1.06 and 1.09 with normal triphasic Doppler waveforms Digital indices not obtained. Ordering Physician: Teofilo Romero Referring Physician: La Dobson Performed By: Yaneyl Coronado RVT
--- NOTE | 2022-06-30 14:41 | EKG12_ITS ---
Test Reason : ARM PAIN Blood Pressure : / mmHG Vent. Rate : 086 BPM Atrial Rate : 086 BPM P-R Int : 118 ms QRS Dur : 074 ms QT Int : 360 ms P-R-T Axes : 034 029 023 degrees QTc Int : 430 ms Normal sinus rhythm Normal ECG Confirmed by ODESSA JACOBO, PARUL ([id number]), digital editor JUDY MCINTOSH ([id number]) on 07/02/2022 2:07:10 PM Referred By: ESTHER Confirmed By:PARUL SAXENA MD
--- NOTE | 2022-06-30 14:45 | RAD_ITS ---
INDICATION: chest pain EXAMINATION/TECHNIQUE: X-RAY - XR Chest 1 View COMPARISON: Chest radiograph from 10/17/2020. CT chest from 11/11/2018. FINDINGS: Support devices: None. No focal consolidations, effusions, or sizable pneumothorax. Cardiomediastinal silhouette is within normal limits. No acute findings in the bones or soft tissues. Stable surgical clips overlying the upper thorax. RAD/Chest 1 View (Portable) IMPRESSION: No radiographic evidence of acute cardiopulmonary disease. Stable exam since 10/17/2020. Electronically Signed: Beau Colón MD at 15:15 EDT ,
--- NOTE | 2022-06-30 14:45 | EX.ED.UPPERE ---
HPI History of Present Illness HPI Narrative: 51-year-old female with atraumatic left upper arm pain. No fall no injury no trauma. No chest pain. Pain comes in waves. Began this morning. When it is there is severe. Currently she is almost pain-free. She is right-hand dominant. Chief Complaint: Upper Extremity Injury Informant: patient Occured/Mechanism Mechanism/Context: No injury and No blunt trauma Onset/Context/Timing Onset: Today and Hours Context: Gradual Onset Timing: Intermittent Quality of Pain: Aching Current Severity: Gone Maximum Severity: Severe Associated Symptoms Associated Symptoms: Negative for Parasthesia, Weakness or Loss of Funtion Narrative Narrative: 51-year-old atraumatic left upper arm pain that comes in waves. No fall injury or trauma. No prior history. She is right-hand dominant. No prior surgeries to the left shoulder or upper arm. Denies chest pain. Prior similar symptoms: No Recent Illness/Hospitalization: No PFSH PFSH Medical History Anemia Anxiety and depression Bladder disease Cancer CPAP (continuous positive airway pressure) dependence Diverticulitis Easy bruising Eustachian tube dysfunction Fibromyalgia Gastric reflux GERD (gastroesophageal reflux disease) Goiter History of diverticulitis History of edema History of stress test Migraine headache On home oxygen therapy Pain, joint, multiple sites Rheumatoid arthritis Severe obstructive sleep apnea Sjogrens syndrome Wears glasses Home Medications NK 06/30/22 [History Last Taken Unknown] Allergy/AdvReac Type Severity Reaction Status Date / Time codeine Allergy Rash Verified 06/30/22 13:01 morphine Allergy Rash Verified 06/30/22 13:01 venom-honey bee Allergy Unknown Verified 06/30/22 13:01 [bee venom (honey bee)] Family History Father CVA (cerebral vascular accident) Sleep apnea Asthma Arthritis Low blood sugar Anesthesia complication Depression Respiratory disease Suicide attempt Mother Anemia Bowel disease Depression Grandfather Myocardial infarction Uncle Colon cancer Surgical History H/O dilation and curettage H/O right knee surgery H/O thyroidectomy H/O tubal ligation History of colonoscopy History of endometrial biopsy History of hip surgery Hx of tonsillectomy IUD (intrauterine device) in place Social History household members: spouse current occupation: works at [employer] Smoking Status: Never smoker Electronic Cigarette Use: not used alcohol intake: current alcohol intake frequency: a few times a month substance use type: does not use what type of physical activity do you participate in: none do you feel safe at home: Yes ROS ROS ED ROS Narrative Denies recent illness Review of Systems ROS Unobtainable: Denies due to encephalopathy Constitutional Constitutional ED: Denies chills or fever(s) Eyes Eyes: Denies blurry vision ENT ENT ED: Denies ear pain Cardiovascular Cardiovascular: Denies chest pain Respiratory/Chest Respiratory/Chest: Denies cough or dyspnea Gastrointestinal Gastrointestinal: Denies abdominal pain Genitourinary Genitourinary ED: Denies dysuria or hematuria Musculoskeletal Musculoskeletal: Denies back pain Integumentary Denies abscess Neurologic Neurologic: Denies headache(s) Psychiatric Psychiatric: Denies anxiety Endocrine Endocrinology: Denies cold intolerance Hematologic/Lymphatic Hematologic/Lymphatic: Denies easy bleeding Allergic/Immunologic Allergic/Immunologic ED: Denies mouth swelling or tongue swelling EXAM Physical Exam Narrative Exam Narrative: 31-year-old female vital signs stable afebrile. Currently no acute distress. Currently almost symptom-free. Denies any significant pain in the arm. H EENT exam unremarkable. Neck nontender no JVD. Lungs clear to auscultation bilaterally. Heart regular rhythm no murmur rate about 70. Chest wall nontender. Abdomen soft nontender. Moving all 4 extremities. Neurovascular intact. 5 out of 5 pickers material handlers strength bilaterally. Radial pulse on the right is brisk and strong radial pulse in the left is palpable. Neither hand is cool to the touch. Neither hand is pale. There is no swelling or cords in the left upper extremity. She has normal range of motion of her left shoulder, elbow, wrist and hand. Normal touch sensation bilaterally. Neurologically she is awake alert with no focal motor or sensory deficits. Const Vital Signs: 06/30/22 13:01 Temperature 97 F L Temperature Source Temporal Pulse Rate 68 Respiratory Rate 16 Blood Pressure 142/93 H Blood Pressure Mean 109 Pulse Ox 97 Oxygen Delivery Method Room Air Positive well nourished and well developed; Negative for cachectic, contractures or unkempt General Appearance ED: well developed and NAD; Negative for unkempt, cachectic, contractures, cyanotic or diaphoretic Nutritional Appearance: Negative for cachectic HEENT Reports moist mucous membranes normocephalic and atraumatic; Negative for trauma or tenderness Eyes PERRL and EOMs intact bilaterally General Eye ED: Negative for other Neck full ROM and supple General: Negative for tenderness Lymph Lymphatic: Negative for other Chest Wall inspection of chest normal and palpation of chest normal Chest: Negative for other Resp normal respiratory effort and clear to auscultation bilaterally Effort and Inspection: Negative for pain with movement Auscultation: Negative for rales, rhonchi or wheezes Cardio regular rate, regular rhythm, S1 normal heart sound, S2 normal heart sound and no murmurs Rate: Negative for bradycardia or tachycardic Rhythm: Negative for abnormal rhythm GI non-tender, non-distended and no masses Inspection: Negative for abdominal distention Auscultation: normoactive bowel sounds Palpation: soft; Negative for tender or guarding Bladder / Kidney Exam: No other Back/Spine no CVA tenderness General Back: Negative for CVA tenderness Cervical Spine: Negative for cervical spine tenderness Thoracic Spine / Upper Back: Negative for thoracic spinal tenderness Lumbar Spine / Lower Back: Negative for lumbar spinal tenderness Extremity normal to inspection and full ROM General Extremety ED: Negative for edema General Extremity: Negative for edema Neuro oriented x3, CN's II-XII intact bilaterally, moves all extremities, no focal motor deficits and no sensory deficits noted Sensorium / Orientation: alert, oriented to person, oriented to place and oriented to time; Negative for orientation impaired, lethargic or stuporous Motor Exam: strength 5/5 throughout Psych mental status grossly normal Appearance: Negative for unkempt Attitude: No agitated Mood & Affect: Negative for depressed, anxious or tearful Skin General Skin Exam: Negative for petechiae Lesions: no lesions Rashes: no rashes Trauma: no lacerations or abrasions; Negative for abrasion or laceration MDM MDM MDM Narrative Medical decision making narrative: 51-year-old female complaining of episodes of left upper extremity pain without any signs of trauma or history. Currently exam is normal. Palpable pulse. Good motor strength and sensation. Warm to the touch. No discoloration. No pallor. No coolness. No decrease sensation. No decreased motor strength. Normal range of motion. Clinically I do not think this is cardiac she will undergo cardiac work-up. I am going obtain a noninvasive stat left upper extremity for blood flow. She is a very benign exam at this time. Repeat exam patient is doing well at 5:30 PM. She another episode of pain her exam remains completely normal. Normal motor strength and sensation left hand normal range of motion of the wrist elbow and shoulder. No axillary lymphadenopathy. No discoloration, redness or warmth. No pallor. Strong radial pulse. Normal strength and sensation. She and I went over all of her test results. She will be discharged home to follow-up with her primary care physician I have her primary care provider on page discussed with Dr. Fu close follow-up with this patient. History & Record Review Discussion w/independent historian: Patient Additional record(s) reviewed:: Prior inpatient record, Prior outpatient record, Prior ED visit, Prior labs and No prior records Lab Data Attestation: I reviewed the patient's lab results. Lab results narrative: CBC unremarkable other than hemoglobin 11.5 which is her baseline anemia. Chemistries unremarkable. Troponin less than 3. EKG unremarkable rate 86. Chest x-ray unremarkable. Noninvasive study of the left upper extremity looking for arterial flow showed no acute abnormality as read by the radiologist and the transportation engineering technician. Radiography Chest X-Ray - ED: 1 View, Read by ED Physician, Heart, Lungs, Mediastinum, Bony Structures, No Acute Disease and Chronic Changes Diagnostic Testing: Chest x-ray, portable, single view interpreted by myself and the radiologist shows no acute abnormality. Normal cardiac silhouette cardiac silhouette normal mediastinum. No acute bony abnormalities. Rhythm Strip Rhythm Strip: Sinus Rhythm Rate: 86 Ectopy: None EKG Initial EKG: Attestation: I personally reviewed and interpreted this EKG as follows: Interpretation: Sinus Rhythm and No Acute Injury Pattern Comments: Normal sinus rhythm rate 86 no acute signs of [place] or ischemia. Prior EKG tracings: not available for review Prior: No Prior Discharge Plan Triage Chief Complaint: Upper Extremity Injury ED Provider: Teofilo Romero Dx/Rx/DC Orders Clinical Impression: Arm pain, left, History of fibromyalgia, Hx of rheumatoid arthritis Instructions: ED Pain, Acute, Uncertain Cause Prescriptions: No Action NK Primary Care Provider: La Dobson Referrals: La Dobson MD [Primary Care Provider] - 3-5 Days Activity Restrictions/Additional Instructions: Follow-up with your doctor and/or your stave block splitter. I do not have a specific cause for your pain today. Your exam is normal. The noninvasive study of your arm shows no blood clots or problem with your circulation in your arm. Your labs, chest x-ray and EKG were unremarkable. Motrin and Tylenol for pain. Return if a lot worse otherwise follow-up. Disposition Disposition: Home, Self Care
[2022-06-30 14:59] LABS: Absolute Lymphocyte Count 2.26 X10^3/uL (0.83-4.51); Absolute Neutrophil Count 4.7 X10^3/uL (2.0-7.7); Basophil# 0.07 X10^3/uL; Basophil% 0.9 % (0-1); Eosinophil# 0.12 X10^3/uL; Eosinophils% 1.6 % (0-5); Hematocrit 38.2 % (37-47); Hemoglobin 11.5 g/dL (12.0-15.0); Lymphocyte # 2.26 X10^3/ul (0.83-4.51); Lymphocyte % 29.3 % (19-41); Mean Corp Hgb Conc 30.1 g/dL (32-36); Mean Corpuscular Hgb 25.1 pg (27.0-32.0); Mean Corpuscular Volume 83.4 fL (81-99); Mean Platelet Vol. 8.9 fl (6.2-12.0); Monocyte% 6.5 % (0-10); NRBC Flagged by Analyzer 0 % (0-5); Neutrophil # 4.74 X10^3/uL (2.7-7.7); Neutrophil % 61.4 % (47-70); Platelet Count 337 K/mm3 (150-450); RBC Distribution Width CV 16.9 % (11.6-14.6); RBC Distribution Width SD 50.7 fl (35.1-43.9); Red Blood Count 4.58 M/mm3 (4.2-5.4); White Blood Count 7.7 K/mm3 (4.4-11.0)
[2022-06-30 15:28] LABS: Anion Gap 8 (5-15); BUN 12 mg/dL (7-18); BUN/Creat Ratio 13.3 RATIO (10-20); Calcium,Total 8.6 mg/dL (8.5-10.1); Chloride 110 mmol/L (98-107); EST Glomerular Filtration Rate 70 mL/min (>60); Est Glom Filt Rate - Afr Amer 84 mL/min (>60); Estimated Creatinine Clearance 63.86 ml/min; Glucose 99 mg/dL (74-106); Potassium 4.1 mmol/L (3.5-5.1); Sodium Level 143 mmol/L (136-145); Troponin-I HS < 3 pg/mL (3.0-54.0)
[2022-06-30 16:00] VITALS: PULSE 81; RESP 18
== END 2022-06-30 17:44 | disposition home or self-care (01) ==
PROVIDERS: Emergency Provider Emergency Medicine; PCP Internal Medicine; Visit Provider Emergency Medicine
DX: M79.602 Pain in left arm (principal); M06.9 Rheumatoid arthritis, unspecified; M79.7 Fibromyalgia
CPT/HCPCS: 71045; 80048; 84484; 85025; 93005; 93923; 99284; A4216

== ENCOUNTER → 2023-01-17 | Outpatient (CLI) | payer BC, MEDICAID, SELFPAY ==
[2023-01-17 14:28] LABS: Bacteria 0 SEEN /hpf (None Seen); Mucous, Urine 0 SEEN /hpf (<or=2+); Red Blood Cells-Urine 0 SEEN /hpf (0-5)
[2023-01-17 14:34] LABS: Color, Urine Yellow (Yellow); Glucose, Dipstick Normal (Normal); Ketone-Dipstick Negative (Negative); Leukocyte Esterase-Dipstick 500 /ul (Negative); Nitrite-Dipstick Negative (Negative); Occult Blood-Urine Negative /ul (Negative); Protein-Dipstick 15 mg/dl (Negative); Urine Bilirubin Dipstick Negative (Negative); Urine Clarity Clear (Clear); Urine Urobilinogen Normal (Normal)
[2023-01-17 14:48] LABS: Squamous Epithelial Cells - UA 5-10 SEEN /hpf (5-10); White Blood Cells 0-5 SEEN /hpf (0-5)
== END | disposition home or self-care (01) ==
LOC: LABSPEC 14:27
PROVIDERS: PCP Internal Medicine; Visit Provider Physician Assistant Medical
DX: R10.9 Unspecified abdominal pain (principal)
CPT/HCPCS: 81001; 87086; 87088

== ENCOUNTER → 2023-06-16 | Outpatient (CLI) | payer BC, MEDICAID, SELFPAY ==
[2023-06-16 12:34] LABS: ALB/GLOB Ratio 0.9 RATIO (0.9-2.4); AST(SGOT) 20 U/L (15-37); Absolute Lymphocyte Count 1.78 X10^3/uL (0.83-4.51); Absolute Neutrophil Count 3.5 X10^3/uL (2.0-7.7); Alanine Aminotransfer ALT/SGPT 29 U/L (13-56); Albumin, Serum 3.6 g/dL (3.2-5.0); Alkaline Phosphatase 72 U/L (45-117); Anion Gap 5 (5-15); BUN 10 mg/dL (7-18); BUN/Creat Ratio 10.3 RATIO (10-20); Basophil# 0.06 X10^3/uL; Calcium,Total 9.2 mg/dL (8.5-10.1); Chloride 109 mmol/L (98-107); Cholesterol 151 mg/dL (200); Creatinine, Serum 0.97 mg/dL (0.55-1.02); EST Glomerular Filtration Rate 64 mL/min (>60); Eosinophil# 0.07 X10^3/uL; Eosinophils% 1.2 % (0-5); Est Glom Filt Rate - Afr Amer 77 mL/min (>60); Globulin 3.9 g/dL (2.2-4.2); Glucose 97 mg/dL (74-106); Hematocrit 40.7 % (37-47); Hemoglobin 12.7 g/dL (12.0-15.0); High Density Lipoprotein 51 mg/dL; Lymphocyte # 1.78 X10^3/ul (0.83-4.51); Lymphocyte % 30.3 % (19-41); Mean Corp Hgb Conc 31.2 g/dL (32-36); Mean Corpuscular Hgb 26.3 pg (27.0-32.0); Mean Corpuscular Volume 84.4 fL (81-99); Mean Platelet Vol. 9.7 fl (6.2-12.0); Monocyte# 0.47 X10^3/uL; NRBC Flagged by Analyzer 0 % (0-5); Neutrophil # 3.47 X10^3/uL (2.7-7.7); Neutrophil % 59.2 % (47-70); Platelet Count 317 K/mm3 (150-450); Potassium 4.5 mmol/L (3.5-5.1); Protein, Total 7.5 g/dL (6.4-8.2); RBC Distribution Width CV 14.6 % (11.6-14.6); Red Blood Count 4.82 M/mm3 (4.2-5.4); Sodium Level 141 mmol/L (136-145); Triglycerides 93 mg/dL; Very Low Density Lipoprotein 19 mg/dL (5-40); White Blood Count 5.9 K/mm3 (4.4-11.0)
[2023-06-16 13:09] LABS: Hemoglobin A1c 5.7 % (3.8-5.6)
== END | disposition home or self-care (01) ==
LOC: BIMLAB 09:06
PROVIDERS: PCP Internal Medicine; Visit Provider Internal Medicine
DX: M79.7 Fibromyalgia (principal); R73.03 Prediabetes; M25.50 Pain in unspecified joint; K21.9 Gastro-esophageal reflux disease without esophagitis; Z13.6 Encounter for screening for cardiovascular disorders
CPT/HCPCS: 36415; 80053; 80061; 83036; 85025

== ENCOUNTER 2024-04-18 11:35 | Emergency (ER) | payer BC, SELFPAY ==
[2024-04-18 11:36] VITALS: BP 133/76; PULSE 97; RESP 16; TEMP 36.1; O2SAT 99; BMI 35.1
--- NOTE | 2024-04-18 11:49 | CT_ITS ---
PROCEDURE: ABDOMEN/PELVIS W IV CONT ONLY REASON FOR EXAM: Diarrhea. Possible diverticulitis. Left lower quadrant pain. TECHNIQUE: Abdomen and pelvis CT with intravenous contrast. No oral contrast. IV CONTRAST: 100 cc of Isovue-300. COMPARISON: None. FINDINGS: Lung bases: Minimal bibasilar linear atelectasis. Liver: Mild degree of fatty infiltration of the liver. Gallbladder: Unremarkable. Spleen: Unremarkable. Pancreas: Unremarkable. Adrenals: Unremarkable. Kidneys: Unremarkable. Bladder: Unremarkable. Reproductive Organs: Calcified fibroid along the posterior aspect of the uterus on the left side. Bowel: Sigmoid colon diverticula with wall thickening and adjacent inflammatory changes. No evidence of perforation or abscess. Appendix: Normal. Lymph nodes: No suspicious lymph node enlargement. Vasculature: Major vascular structures are unremarkable. Peritoneum / Retroperitoneum: No ascites. No free air. Small umbilical hernia containing fat. Bones: Unremarkable. CT/Abdomen/Pelvis W IV Cont ONLY IMPRESSION: Findings suggestive of non complicated acute sigmoid diverticulitis. One or more dose reduction techniques were used (e.g., Automated exposure contr ol, adjustment of the mA and/or kV according to patient size, use of iterative reconstruction technique). Reading Location: [place] [id number]
--- NOTE | 2024-04-18 11:50 | ED.VIS.GI ---
HPI HPI - GI History of Present Illness Chief Complaint: Abd Pain Detail of Chief Complaint: Abdominal pain Informant: patient Narrative Narrative: Patient presents to the emergency department with left-sided abdominal pain that started 4 days ago. She went to urgent care today and they referred her to the emergency department. She has a remote history years ago of diverticulitis. Patient also states that she has had urinary tract infections in the past and felt similarly. She describes no dysuria. She does have some slight frequency. Denies hematuria. She has had no fever. Pain is worse with sitting. Currently rates her pain a 9 out of 10. [facility] Medical History (Updated 04/18/24 @ 14:[address] Edwige Peterson, DO) Hx of diverticulitis of colon Wears glasses Bladder disease Anemia Easy bruising Migraine headache Gastric reflux On home oxygen therapy CPAP (continuous positive airway pressure) dependence History of edema History of stress test Pain, joint, multiple sites Sjogrens syndrome Goiter Anxiety and depression Diverticulitis Eustachian tube dysfunction GERD (gastroesophageal reflux disease) Severe obstructive sleep apnea Fibromyalgia Rheumatoid arthritis Cancer Home Medications ?Medication ?Instructions ?Recorded ?Last Taken ?Type epinephrine 0.3 mg/0.3 mL 0.3 mg (0.3 mL) IM ONCE #2 ea 06/17/23 Unknown Rx injection, auto-injector (EpiPen) omeprazole 40 mg capsule,delayed 40 mg PO DAILY #90 caps 12/09/23 Unknown Rx release ciprofloxacin HCl 500 mg tablet 500 mg PO BID #14 TABLETS 04/18/24 Unknown Rx hydrocodone-acetaminophen 5-325mg 1 tab PO Q4H PRN PRN Pain 2 days 04/18/24 Unknown Rx 5mg-325mg #15 TABLETS metronidazole 500 mg tablet 500 mg PO TID #21 tabs 04/18/24 Unknown Rx Allergy/AdvReac Type Severity Reaction Status Date / Time codeine Allergy Rash Verified 06/09/23 09:17 morphine Allergy Rash Verified 06/09/23 09:17 venom-honey bee (bee venom Allergy Unknown Verified 06/09/23 09:17 (honey bee)) Family History Father CVA (cerebral vascular accident) Sleep apnea Asthma Arthritis Low blood sugar Anesthesia complication Depression Respiratory disease Suicide attempt Mother Anemia Bowel disease Depression Grandfather Myocardial infarction Uncle Colon cancer Surgical History History of colonoscopy H/O right knee surgery IUD (intrauterine device) in place History of hip surgery History of endometrial biopsy H/O tubal ligation H/O thyroidectomy Hx of tonsillectomy H/O dilation and curettage Social History (Updated 06/09/23 @ 09:[address] 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 Smoking Status: Never smoker Electronic Cigarette Use: not used alcohol intake: current alcohol intake frequency: a few times a month substance use type: does not use what type of physical activity do you participate in: none do you feel safe at home: Yes ROS ROS ED Review of Systems ROS Unobtainable: other Constitutional Constitutional ED: Reports lethargy; Denies chills, fever(s), sweats or weight loss Eyes Eyes: Denies blurry vision, change in vision or diplopia ENT ENT ED: Denies rhinorrhea or sore throat Cardiovascular Cardiovascular: Denies chest pain, orthopnea or racing heartbeat Respiratory/Chest Respiratory/Chest: Reports dyspnea and dyspnea on exertion; Denies cough, orthopnea or sputum Gastrointestinal Gastrointestinal: Reports abdominal pain and diarrhea; Denies nausea or vomiting Genitourinary Genitourinary ED: Denies dysuria, hematuria or urinary frequency Musculoskeletal Musculoskeletal: Denies arthralgias, back pain, myalgias or neck pain Integumentary Denies abscess, Abrasions or rash Neurologic Neurologic: Denies headache(s) or weakness Psychiatric Psychiatric: Denies anxiety, depression or suicidal thoughts Endocrine Endocrinology: Denies polydipsia, polyphagia or polyuria Hematologic/Lymphatic Hematologic/Lymphatic: Denies easy bleeding, easy bruising or lymphadenopathy Allergic/Immunologic Allergic/Immunologic ED: Denies mouth swelling, tongue swelling or urticaria EXAM Physical Exam Const Vital Signs: 04/18/24 11:36 04/18/24 13:46 04/18/24 13:56 Temperature 96.9 F L 98 F Temperature Source Temporal Pulse Rate 97 75 72 Respiratory Rate 16 16 16 Blood Pressure 133/76 H 104/66 110/65 Blood Pressure Mean 95 78 80 Pulse Ox 99 90 93 Oxygen Delivery Method Room Air Room Air Positive well nourished and well developed General Appearance ED: well developed and NAD HEENT Reports TM's clear and moist mucous membranes normocephalic and atraumatic; Negative for trauma or tenderness Tympanic Membrane ED: Yes TM's clear Eyes PERRL and EOMs intact bilaterally General Eye ED: Negative for pale conjunctiva or scleral icterus Neck no lymphadenopathy, supple and no JVD General: Negative for tenderness Chest Wall inspection of chest normal and palpation of chest normal Chest: Negative for tenderness Resp normal respiratory effort and clear to auscultation bilaterally Effort and Inspection: Negative for respiratory distress or pain with movement Auscultation: Negative for rhonchi, wheezes or diminished lung sounds Cardio regular rate, regular rhythm, S1 normal heart sound, S2 normal heart sound and no murmurs Peripheral Pulses: pulses 2+ throughout GI normal to inspection, nondistended, normoactive bowel sounds, soft to palpation, non-distended and no masses GI Narrative: Tenderness palpation over the suprapubic region as well as the left lower quadrant with guarding. There is no rebound, rigidity, or peritoneal signs. No mass palpated Back/Spine no CVA tenderness and no thoracic nor lumbar tenderness Extremity normal to inspection General Extremety ED: Negative for edema General Extremity: Negative for edema Neuro oriented x3, CN's II-XII intact bilaterally, no sensory deficits noted and gait normal Sensorium / Orientation: awake, alert, oriented to person, oriented to place and oriented to time Motor Exam: strength 5/5 throughout and strength abnormal Psych mental status grossly normal Skin no rashes or lesions noted and no wounds MDM MDM MDM Narrative Medical decision making narrative: Patient presents with abdominal pain x 4 days. History of prior diverticulitis. She has had no fever and clinically looks well. Nontoxic appearing. In the differential would be diverticulitis versus UTI, versus kidney stone, versus bowel perforation or other intra-abdominal process. IV line established. She was medicated with Dilaudid and Zofran. CBC with differential obtained for white count 9.5 with hemoglobin 12.6 and platelet count 246. Chemistries unremarkable. Lactate was less than 1. Urinalysis was normal. CT scan of the abdomen pelvis obtained interpreted by radiology as mild sigmoid diverticulitis. This point she continues to have pain and was given another milligram of Dilaudid 1 mg IV. She will be started on Cipro and Flagyl and will be given a prescription for Percocet for pain. Advised to follow-up with primary care physician within next 3 to 5 days. She is to return if worsening pain, fever, bloody stool, or condition should worsen anyway. Lab Data Attestation: I reviewed the patient's lab results. Labs: Laboratory Results - last 24 hr 04/18/24 04/18/24 12:04 12:55 WBC 9.5 RBC 4.53 Hgb 12.6 Hct 39.0 MCV 86.1 MCH 27.8 MCHC 32.3 RDW Std Deviation 47.0 H RDW Coeff of Mignon 14.9 H Plt Count 246 MPV 9.6 Immature Gran % (Auto) 0.500 Neut % (Auto) 71.1 H Lymph % (Auto) 19.5 [place] % (Auto) 7.4 Eos % (Auto) 0.8 Baso % (Auto) 0.7 Absolute Neuts (auto) 6.7 Absolute Lymphs (auto) 1.84 Nucleated RBC % 0 Sodium 138 Potassium 4.2 Chloride 104 Carbon Dioxide 22.5 Anion Gap 11 BUN 13 Creatinine 0.99 Estim Creat Clear Calc 69.93 Est GFR (MDRD) Non-Af 68 BUN/Creatinine Ratio 13.1 Glucose 97 Lactic Acid < 1.0 Calcium 9.5 Urine Color Straw Urine Clarity Clear Urine pH 6.5 Ur Specific [place] 1.005 Urine Protein 15 H Urine Glucose (UA) Normal Urine Ketones Negative Urine Occult Blood Negative Urine Nitrite Negative Urine Bilirubin Negative Urine Urobilinogen Normal Ur Leukocyte Esterase Negative Urine RBC 0 SEEN Urine WBC 0-5 SEEN Ur Squamous Epith Cells 0-5 SEEN Urine Bacteria 0 SEEN Urine Mucus 0 SEEN Discharge Plan Triage Chief Complaint: Abd Pain ED Provider: Edwige Peterson Dx/Rx/DC Orders Clinical Impression: Diverticulitis, Abdominal pain Instructions: ED Diverticulitis Prescriptions: New ciprofloxacin HCl 500 mg tablet 500 mg PO BID Qty: 14 0RF metronidazole 500 mg tablet 500 mg PO TID Qty: 21 0RF hydrocodone-acetaminophen 5-325 mg tablet 1 tab PO Q4H PRN PRN (Reason: Pain) 2 Days Qty: 15 0RF No Action epinephrine [EpiPen] 0.3 mg/0.3 mL auto-injector 0.3 mg IM ONCE Qty: 2 0RF Rx Instructions: as a single dose; may repeat once omeprazole 40 mg capsule,delayed release(DR/EC) 40 mg PO DAILY Qty: 90 0RF Primary Care Provider: La Dobson Referrals: La Dobson MD [Primary Care Provider] - 3-5 Days Print Language: Palauan Disposition Disposition: Home, Self Care Discharge Date/Time: 04/18/24 13:57
[2024-04-18] MEDS: Ondansetron 4 MG/2 ML Vial IV (12:10)
[2024-04-18] MEDS: HYDROmorphone 1 MG/ML Syringe IV ×2 (12:10→13:26)
[2024-04-18 12:22] LABS: Absolute Lymphocyte Count 1.84 X10^3/uL (0.83-4.51); Absolute Neutrophil Count 6.7 X10^3/uL (2.0-7.7); Basophil# 0.07 X10^3/uL; Basophil% 0.7 % (0-1); Eosinophil# 0.08 X10^3/uL; Eosinophils% 0.8 % (0-5); Hemoglobin 12.6 g/dL (12.0-15.0); Lymphocyte # 1.84 X10^3/ul (0.83-4.51); Lymphocyte % 19.5 % (19-41); Mean Corp Hgb Conc 32.3 g/dL (32-36); Mean Corpuscular Hgb 27.8 pg (27.0-32.0); Mean Corpuscular Volume 86.1 fL (81-99); Mean Platelet Vol. 9.6 fl (6.2-12.0); Monocyte% 7.4 % (0-10); NRBC Flagged by Analyzer 0 % (0-5); Neutrophil # 6.71 X10^3/uL (2.7-7.7); Neutrophil % 71.1 % (47-70); Platelet Count 246 K/mm3 (150-450); RBC Distribution Width CV 14.9 % (11.6-14.6); Red Blood Count 4.53 M/mm3 (4.2-5.4); White Blood Count 9.5 K/mm3 (4.4-11.0)
[2024-04-18 12:49] LABS: Anion Gap 11 (5-15); BUN 13 mg/dL (4-19); BUN/Creat Ratio 13.1 RATIO (10-20); Calcium,Total 9.5 mg/dL (7.6-11.0); Carbon Dioxide 22.5 mmol/L (21.0-32.0); Chloride 104 mmol/L (98-108); Creatinine, Serum 0.99 mg/dL (0.70-1.20); EST Glomerular Filtration Rate 68 (>60); Estimated Creatinine Clearance 69.93 ml/min (50-250); Glucose 97 mg/dL (70-99); Lactic Acid < 1.0 mmol/L (0.0-2.0); Potassium 4.2 mmol/L (3.3-5.1); Sodium Level 138 mmol/L (133-145)
[2024-04-18 12:59] LABS: Bacteria 0 SEEN /hpf (None Seen); Mucous, Urine 0 SEEN /hpf (<or=2+)
[2024-04-18 13:03] LABS: Color, Urine Straw (Yellow); Glucose, Dipstick Normal (Normal); Ketone-Dipstick Negative (Negative); Leukocyte Esterase-Dipstick Negative /ul (Negative); Nitrite-Dipstick Negative (Negative); Occult Blood-Urine Negative /ul (Negative); Protein-Dipstick 15 mg/dl (Negative); Specific Gravity, Urine 1.005 (1.002-1.030); Urine Bilirubin Dipstick Negative (Negative); Urine Clarity Clear (Clear); Urine Urobilinogen Normal (Normal); Urine pH 6.5 (5.0 - 8.0)
[2024-04-18 13:18] LABS: Red Blood Cells-Urine 0 SEEN /hpf (0-5); Squamous Epithelial Cells - UA 0-5 SEEN /hpf (5-10); White Blood Cells 0-5 SEEN /hpf (0-5)
[2024-04-18 13:46] VITALS: BP 104/66; PULSE 75; RESP 16; O2SAT 90
[2024-04-18] MEDS: Ciprofloxacin 500 MG Tablet PO (13:51)
[2024-04-18] MEDS: metroNIDAZOLE 500 MG Tablet PO (13:51)
[2024-04-18 13:56] VITALS: BP 110/65; PULSE 72; RESP 16; TEMP 36.6; O2SAT 93
== END 2024-04-18 13:57 | disposition home or self-care (01) ==
PROVIDERS: Emergency Provider Emergency Medicine; PCP Internal Medicine; Referring Provider Emergency Medicine; Visit Provider Emergency Medicine
DX: K57.92 Diverticulitis of intestine, part unspecified, without perforation or abscess without bleeding (principal); Z80.0 Family history of malignant neoplasm of digestive organs; Z87.19 Personal history of other diseases of the digestive system; Z98.51 Tubal ligation status; K21.9 Gastro-esophageal reflux disease without esophagitis; Z99.89 Dependence on other enabling machines and devices; G47.33 Obstructive sleep apnea (adult) (pediatric)
CPT/HCPCS: 74177; 80048; 81001; 83605; 85025; 96374; 96375; 99284; Q9967; A4216; J2405

== ENCOUNTER → 2024-05-03 | Outpatient (CLI) | payer BC, SELFPAY ==
[2024-05-03 15:30] LABS: Hemoglobin A1c 5.8 % (<=5.6)
== END | disposition home or self-care (01) ==
LOC: BIMLAB 10:59
PROVIDERS: PCP Internal Medicine; Referring Provider Internal Medicine; Visit Provider Internal Medicine
DX: E89.0 Postprocedural hypothyroidism (principal); R73.03 Prediabetes
CPT/HCPCS: 36415; 83036; 84443

== ENCOUNTER → 2024-05-04 | Outpatient (CLI) | payer BC, SELFPAY | END | disposition home or self-care (01) | LOC: LABSPEC 09:28 | PROVIDERS: PCP Internal Medicine; Referring Provider Internal Medicine; Visit Provider Internal Medicine | DX: K57.92 Diverticulitis of intestine, part unspecified, without perforation or abscess without bleeding (principal); R19.7 Diarrhea, unspecified | CPT/HCPCS: 82274; 87493 ==

== ENCOUNTER → 2024-05-10 | Outpatient (CLI) | payer BC, SELFPAY ==
--- NOTE | 2024-05-10 10:36 | CT_ITS ---
PROCEDURE: ABDOMEN/PELVIS WITH CONTRAST 05/10/2024 REASON FOR EXAM: ACUTE DIVERTICULITIS TECHNIQUE: Abdomen and pelvis CT with intravenous contrast. Coronal and Sagittal reconstruction series were provided. PATIENT PREPARATION: Per protocol ORAL CONTRAST TYPE: With. CONTRAST: Isovue 370 VOLUME: 98mL Gauge IV One or more dose reduction techniques were used (e.g., Automated exposure control, adjustment of the mA and/or kV according to patient size, use of iterative reconstruction technique. RADIATION DOSE SUMMARY: CTDlvol: 16 mGy DLP: 1101.27 mGycm COMPARISON: Comparison is made with prior study dated April 18, 2024. FINDINGS: Lung bases: Mild dependent atelectasis Liver: Normal size. No mass. Gallbladder: Unremarkable Spleen: Normal size. Pancreas: Normal size without evidence of mass surrounding inflammation or ductal dilation. Adrenals: Unremarkable Kidneys: Mild degree of right hydronephrosis. Mild degree of right ureteral dilatation down to the level of the ureterovesical junction. Bladder: The urinary bladder is distended. Reproductive Organs: Stable focal calcified fibroid in the posterior aspect of the uterus. Bowel: Scattered sigmoid diverticula without evidence of diverticulitis. Appendix: Unremarkable Lymph nodes: Unremarkable Vasculature: Unremarkable Peritoneum / Retroperitoneum: Unremarkable Bones: Degenerative changes of the spine. CT/Abdomen/Pelvis WITH Contrast IMPRESSION: Sigmoid diverticulosis without evidence of diverticulitis at this time. Urinary bladder distention. Mild degree of right hydronephrosis and right hydroureter most likely secondary to the distended urinary bladder. Reading Location: [place]
== END | disposition home or self-care (01) ==
LOC: CT 10:35
PROVIDERS: PCP Internal Medicine; Referring Provider Internal Medicine; Visit Provider Internal Medicine
DX: K57.92 Diverticulitis of intestine, part unspecified, without perforation or abscess without bleeding (principal)
CPT/HCPCS: 74177; Q9967

== ENCOUNTER → 2024-05-17 | Outpatient (CLI) | payer BC, SELFPAY ==
[2024-05-17 09:36] LABS: Absolute Lymphocyte Count 1.72 X10^3/uL (0.83-4.51); Absolute Neutrophil Count 4.8 X10^3/uL (2.0-7.7); Basophil# 0.06 X10^3/uL; Basophil% 0.8 % (0-1); Eosinophil# 0.11 X10^3/uL; Eosinophils% 1.5 % (0-5); Hematocrit 42.3 % (37-47); Hemoglobin 13.6 g/dL (12.0-15.0); Lymphocyte # 1.72 X10^3/ul (0.83-4.51); Mean Corp Hgb Conc 32.2 g/dL (32-36); Mean Corpuscular Hgb 27.8 pg (27.0-32.0); Mean Corpuscular Volume 86.3 fL (81-99); Mean Platelet Vol. 9.6 fl (6.2-12.0); Monocyte# 0.47 X10^3/uL; Monocyte% 6.6 % (0-10); NRBC Flagged by Analyzer 0 % (0-5); Neutrophil # 4.78 X10^3/uL (2.7-7.7); Neutrophil % 66.8 % (47-70); Platelet Count 290 K/mm3 (150-450); RBC Distribution Width CV 14.7 % (11.6-14.6); RBC Distribution Width SD 46.5 fl (35.1-43.9); White Blood Count 7.2 K/mm3 (4.4-11.0)
[2024-05-17 11:12] LABS: ALB/GLOB Ratio 1.2 RATIO (0.9-2.4); AST(SGOT) 25 U/L (<=31); Alanine Aminotransfer ALT/SGPT 21 U/L (<=34); Albumin, Serum 4.3 g/dL (3.5-5.0); Alkaline Phosphatase 77 U/L (35-104); Anion Gap 13 (5-15); BUN 11 mg/dL (4-19); Calcium,Total 9.7 mg/dL (7.6-11.0); Carbon Dioxide 21.4 mmol/L (21.0-32.0); Chloride 106 mmol/L (98-108); Creatinine, Serum 0.98 mg/dL (0.70-1.20); EST Glomerular Filtration Rate 69 (>60); Globulin 3.5 g/dL (2.2-4.2); Glucose 94 mg/dL (70-99); Potassium 4.2 mmol/L (3.3-5.1); Protein, Total 7.8 g/dL (5.9-8.4); Sodium Level 140 mmol/L (133-145); Total Bilirubin 0.33 mg/dL (0.00-1.30)
[2024-05-17 11:39] LABS: CRP 6.99 mg/L (0.0-3.0)
[2024-05-17 11:51] LABS: LDH 213 U/L (84-246)
== END | disposition home or self-care (01) ==
LOC: LAB 09:09
PROVIDERS: PCP Internal Medicine
DX: K21.9 Gastro-esophageal reflux disease without esophagitis (principal); R13.10 Dysphagia, unspecified; Z87.19 Personal history of other diseases of the digestive system
CPT/HCPCS: 36415; 80053; 82784; 82785; 83516; 83615; 85025; 86003; 86005; 86036; 86037; 86140; 86255; 86671

== ENCOUNTER → 2024-05-18 | Outpatient (CLI) | payer BC, SELFPAY ==
[2024-05-20 15:08] LABS: Pancreatic Elastase, Fecal > 800 (>200)
[2024-05-21 01:07] LABS: Calprotectin, Stool 51 ug/g (0-120)
== END | disposition home or self-care (01) ==
LOC: LABSPEC 08:54
PROVIDERS: PCP Internal Medicine
DX: K21.9 Gastro-esophageal reflux disease without esophagitis (principal); R13.10 Dysphagia, unspecified; Z87.19 Personal history of other diseases of the digestive system
CPT/HCPCS: 82653; 83993

== ENCOUNTER → 2024-05-27 | Outpatient (CLI) | payer BC, SELFPAY | END | disposition home or self-care (01) | LOC: SL 20:12 | PROVIDERS: PCP Internal Medicine; Referring Provider Internal Medicine; Visit Provider Internal Medicine | DX: G47.33 Obstructive sleep apnea (adult) (pediatric) (principal) | CPT/HCPCS: 95811 ==

== ENCOUNTER → 2024-06-07 | Outpatient (CLI) | payer BC, SELFPAY ==
--- NOTE | 2024-06-07 10:36 | NM_ITS ---
PROCEDURE: GASTRIC EMPTYING STUDY 06/07/2024 REASON FOR EXAM: POOR APPETITE, EARLY SATIETY COMPARISON: None. TECHNIQUE: The patient ingested a standard meal of cooked egg whites mixed with , toasted white bread, jelly, and water. Total time taken to ingest the meal was minutes. Approximately % of the meal was ingested. There was no vomiting postprandially. Anterior and posterior planar images of the upper abdomen were obtained for 1 minute immediately following the meal at 1h, 2h and 4h if more than 10% of the activity persisted within the stomach. Regions of interest were drawn, and a geometric mean was used to calculate a [id number]. Fasting Blood Glucose (if diabetic): mg/dL. Medications taken in the past 24 hours that may affect gastric emptying: None RADIOPHARMACEUTICAL: 1.2 mCi sulfur colloid FINDINGS: Percent activity remaining in stomach: 1 hour 43 % (normal 37-90%) 2 hours: % (normal 30-60%) 4 hours: % (normal 0-10%) NM/Gastric Emptying Study IMPRESSION: Normal gastric emptying. Reading Location: [id number]
== END | disposition home or self-care (01) ==
LOC: NM 10:35
PROVIDERS: PCP Internal Medicine
DX: Z87.19 Personal history of other diseases of the digestive system (principal); K21.9 Gastro-esophageal reflux disease without esophagitis; R13.10 Dysphagia, unspecified
CPT/HCPCS: 78264; A9541

== ENCOUNTER 2024-06-25 18:31 | Emergency (ER) | payer BC, SELFPAY ==
[2024-06-25 18:32] VITALS: BP 129/69; PULSE 118; RESP 20; TEMP 37.4; O2SAT 96; BMI 34.9
[2024-06-25 18:35] VITALS: BP 129/69; PULSE 118; RESP 20; TEMP 37.4; O2SAT 96
--- NOTE | 2024-06-25 19:03 | EDS_ITS ---
HPI History of Present Illness Chief Complaint: General Illness Informant: patient Onset/Context/Timing Onset: Days (3-4) Context: Gradual Onset Timing: Continuous Quality: Aching Location: Generalized Worsened by: Nothing Relieved by: Nothing Narrative Narrative: Patient presents with a cough that has been getting worse over the past 3 to 4 days. Patient states she is not coughing up any sputum. Patient states she feels short of breath. Patient admits to rhinorrhea, sore throat, bilateral ear pain. Patient admits to some subjective chills. Patient admits to some pain in her chest with coughing. Patient also states she feels like her heart is racing. Patient denies any nausea or vomiting. Patient states she feels achy all over. Patient states nothing makes her symptoms worse and nothing makes it better. [facility] Medical History Hx of diverticulitis of colon Wears glasses Bladder disease Anemia Easy bruising Migraine headache Gastric reflux On home oxygen therapy CPAP (continuous positive airway pressure) dependence History of edema History of stress test Pain, joint, multiple sites Sjogrens syndrome Goiter Anxiety and depression Diverticulitis Eustachian tube dysfunction GERD (gastroesophageal reflux disease) Severe obstructive sleep apnea Fibromyalgia Rheumatoid arthritis Cancer Medical History no medical history Home Medications ?Medication ?Instructions ?Recorded ?Last Taken ?Type epinephrine 0.3 mg/0.3 mL 0.3 mg (0.3 mL) IM ONCE #2 e a 06/17/23 Unknown Rx injection, auto-injector (EpiPen) estradiol 0.01% (0.1 mg/gram) 1 g vaginal QWEEK Unknown History vaginal cream Saccharomyces boulardii 250 mg 250 mg PO QDAY 05/17/24 Unknown History capsule (Digest Probiotic (S.boulardii)) cranberry 500 mg capsule 500 mg PO QDAY 05/17/24 Unkn own History dicyclomine 10 mg capsule 10 mg PO TID PRN abdominal p ain 05/17/24 Unknown Rx #30 caps famotidine 40 mg tablet 40 mg PO QHS #30 tabs Unknown Rx pantoprazole 40 mg tablet,delayed 40 mg PO BID #60 tab s 05/17/24 Unknown Rx release (Protonix) Allergy/AdvReac Type Severity Reaction Status Date / Time codeine Allergy Rash Verified 06/25/24 18:35 morphine Allergy Rash Verified 06/25/24 18:35 venom-honey bee (bee venom Allergy Unknown Verified 06/25/24 18:35 (honey bee)) Family History Father CVA (cerebral vascular accident) Sleep apnea Asthma Arthritis Low blood sugar Anesthesia complication Depression Respiratory disease Suicide attempt Mother Anemia Bowel disease ostomy Depression Dementia Grandfather Myocardial infarction Uncle Colon cancer Surgical History History of colonoscopy H/O right knee surgery IUD (intrauterine device) in place History of hip surgery History of endometrial biopsy H/O tubal ligation H/O thyroidectomy Hx of tonsillectomy H/O dilation and curettage Surgical History no surgical history Social History household members: spouse current occupational status: unemployed current occupation: [employer] Smoking Status: Never smoker Electronic Cigarette Use: not used alcohol intake: current alcohol intake frequency: a few times a month substance use type: does not use what type of physical activity do you participate in: none do you feel safe at home: Yes ROS ROS ED Constitutional Constitutional ED: Reports chills and subjective; Denies fever(s) Eyes Eyes: Reports blurry vision; Denies change in vision ENT ENT ED: Reports ear pain bilateral, rhinorrhea and sore throat Cardiovascular Cardiovascular: Reports chest pain, palpitations and racing heartbeat Respiratory/Chest Respiratory/Chest: Reports cough and dyspnea; Denies sputum Gastrointestinal Gastrointestinal: Denies nausea or vomiting Genitourinary Genitourinary ED: Denies dysuria or hematuria Musculoskeletal Musculoskeletal: Reports neck pain; Denies back pain Integumentary Denies abscess or rash Neurologic Neurologic: Reports headache(s); Denies weakness Allergic/Immunologic Allergic/Immunologic ED: Denies mouth swelling or urticaria EXAM Physical Exam Const Vital Signs: 06/25/24 18:32 06/25/24 18:35 06/25/24 18:50 Temperature 99.4 F H 99.4 F H Temperature Source Oral Oral Pulse Rate 118 H 118 H Respiratory Rate 20 H 20 H Respiratory Effort Normal Short of Breath Respiratory Pattern Normal Blood Pressure 129/69 H 129/69 H Blood Pressure Mean 89 89 Pulse Ox 96 96 Oxygen Delivery Method Room Air 06/25/24 19:35 06/25/24 19:38 06/25/24 21:18 Temperature 98 F 98.0 F Temperature Source Oral Pulse Rate 98 115 H 93 Respiratory Rate 19 H 16 16 Respiratory Effort Respiratory Pattern Normal Blood Pressure 103/69 102/67 Blood Pressure Mean 80 78 Pulse Ox 95 93 Oxygen Delivery Method Room Air Positive well nourished and well developed Constitutional Narrative: BMI is 34.9 General Appearance ED: well developed and NAD HEENT Reports moist mucous membranes Neck supple and no JVD Resp normal respiratory effort Auscultation: wheezes scattered wheezes Cardio regular rhythm Rate: tachycardic GI non-tender and non-distended Palpation: soft Neuro oriented x3, CN's II-XII intact bilaterally and no sensory deficits noted Sensorium / Orientation: alert Motor Exam: strength 5/5 throughout Psych mental status grossly normal MDM MDM MDM Narrative Medical decision making narrative: Differential diagnosis includes pneumonia, bronchitis, viral upper respiratory infection, reactive airway disease, and anxiety. Chest x-ray will be obtained to assess for pneumonia and bronchitis. CBC will be obtained to assess for leukocytosis and anemia. Basic metabolic profile will be obtained to assess for electrolyte abnormality and renal function. COVID-19, influenza, and RSV PCR will be obtained to assess for viral illness. Lab Data Attestation: I reviewed the patient's lab results. Lab results narrative: CBC was reviewed and was within normal limits. Basic metabolic profile was reviewed and was within normal limits. COVID-19 PCR was reviewed and was negative. Influenza PCR was reviewed and was negative for influenza A and influenza B. RSV PCR was reviewed and was negative. Labs: Laboratory Results - last 24 hr 06/25/24 19:32 WBC 9.7 RBC 4.78 Hgb 13.4 Hct 40.9 MCV 85.6 MCH 28.0 MCHC 32.8 RDW Std Deviation 44.2 H RDW Coeff of Mignon 14.2 Plt Count 249 MPV 9.2 Immature Gran % (Auto) 0.200 Neut % (Auto) 70.4 H Lymph % (Auto) 16.9 L Pratt % (Auto) 9.5 Eos % (Auto) 2.4 Baso % (Auto) 0.6 Absolute Neuts (auto) 6.8 Absolute Lymphs (auto) 1.63 Nucleated RBC % 0 Sodium 139 Potassium 4.0 Chloride 105 Carbon Dioxide 21.4 Anion Gap 12 BUN 12 Creatinine 1.16 Estim Creat Clear Calc 59.47 Est GFR (MDRD) Non-Af 56 L BUN/Creatinine Ratio 10.5 Glucose 104 H Calcium 9.2 Radiography Chest X-Ray - ED: 2 View, Read by ED Physician, Read by Radiologist and No Acute Disease Diagnostic Testing: Clinical Impression(s) from Imaging Studies Chest X-Ray 06/25/24 20:00 IMPRESSION: NO ACUTE FINDINGS. Reading Location: [facility] and lateral chest x-ray was obtained. There are 2 views. On my independent interpretation, lung land are clear. There is normal cardiac silhouette. Bony thorax is normal. There is no acute process noted. Radiologist also interpreted the x-ray and agrees. Treatment and Re-Evaluation :: Patient was given a DuoNeb aerosol here. Patient was given a dose of Barnes to help with the cough and pain. Patient had minimal relief with this. Patient was given a dose of Toradol. Patient was advised of her findings. Patient was instructed to drink plenty of fluids. Patient was given a prescription for Tessalon Perles for cough. Patient was instructed to follow-up with her primary care physician in 5 to 7 days. Patient understood and was agreeable with the plan. All questions were answered. Discharge Plan Triage Chief Complaint: General Illness ED Provider: Rey Malcolm Dx/Rx/DC Orders Clinical Impression: Viral upper respiratory tract infection with cough, Fibromyalgia Instructions: ED URI, Viral, No Abx (Adult) Prescriptions: No Action estradiol 0.01 % (0.1 mg/gram) cream 1 g vaginal QWEEK cranberry 500 mg capsule 500 mg PO QDAY Rx Instructions: administer with meals Saccharomyces boulardii [Digest Probiotic (S.boulardii)] 250 mg capsule 250 mg PO QDAY famotidine 40 mg tablet 40 mg PO QHS Qty: 30 2RF pantoprazole [Protonix] 40 mg tablet,delayed release (DR/EC) 40 mg PO BID Qty: 60 2RF dicyclomine 10 mg capsule 10 mg PO TID PRN (Reason: abdominal pain) Qty: 30 0RF epinephrine [EpiPen] 0.3 mg/0.3 mL auto-injector 0.3 mg IM ONCE Qty: 2 0RF Rx Instructions: as a single dose; may repeat once Primary Care Provider: La Dobson Referrals: La Dobson MD [Primary Care Provider] - 5-7 Days Print Language: Bangladeshi Disposition Disposition: Home, Self Care
[2024-06-25 19:35] VITALS: BP 103/69; PULSE 98; RESP 19; TEMP 36.6; O2SAT 95
[2024-06-25] MEDS: HYDROcodone Bitartrate/Apap 5/325 Tablet PO (19:36)
[2024-06-25] MEDS: Ipratropium/Albuterol Sulfate 3 ML AMPUL.NEB INHALATION (19:36)
[2024-06-25 19:38] VITALS: PULSE 115; RESP 16
[2024-06-25 19:38] LABS: Absolute Lymphocyte Count 1.63 X10^3/uL (0.83-4.51); Absolute Neutrophil Count 6.8 X10^3/uL (2.0-7.7); Basophil# 0.06 X10^3/uL; Basophil% 0.6 % (0-1); Eosinophil# 0.23 X10^3/uL; Eosinophils% 2.4 % (0-5); Hematocrit 40.9 % (37-47); Hemoglobin 13.4 g/dL (12.0-15.0); Lymphocyte # 1.63 X10^3/ul (0.83-4.51); Lymphocyte % 16.9 % (19-41); Mean Corp Hgb Conc 32.8 g/dL (32-36); Mean Corpuscular Volume 85.6 fL (81-99); Mean Platelet Vol. 9.2 fl (6.2-12.0); Monocyte# 0.92 X10^3/uL; Monocyte% 9.5 % (0-10); NRBC Flagged by Analyzer 0 % (0-5); Neutrophil # 6.81 X10^3/uL (2.7-7.7); Neutrophil % 70.4 % (47-70); Platelet Count 249 K/mm3 (150-450); RBC Distribution Width CV 14.2 % (11.6-14.6); RBC Distribution Width SD 44.2 fl (35.1-43.9); Red Blood Count 4.78 M/mm3 (4.2-5.4); White Blood Count 9.7 K/mm3 (4.4-11.0)
[2024-06-25 19:55] LABS: Anion Gap 12 (5-15); BUN 12 mg/dL (4-19); BUN/Creat Ratio 10.5 RATIO (10-20); Calcium,Total 9.2 mg/dL (7.6-11.0); Carbon Dioxide 21.4 mmol/L (21.0-32.0); Chloride 105 mmol/L (98-108); Creatinine, Serum 1.16 mg/dL (0.70-1.20); EST Glomerular Filtration Rate 56 (>60); Estimated Creatinine Clearance 59.47 ml/min (50-250); Glucose 104 mg/dL (70-99); Sodium Level 139 mmol/L (133-145)
--- NOTE | 2024-06-25 20:00 | RAD_ITS ---
PROCEDURE: CHEST PA AND LATERAL 06/25/2024 REASON FOR EXAM: COUGH TECHNIQUE: Frontal and lateral views of the chest. COMPARISON: 06/30/2022 FINDINGS: Hardware: Surgical clips lower neck. Heart: The heart size is normal. Mediastinum: The mediastinal contour is unremarkable. Lungs: No focal consolidation. No pneumothorax. No pleural effusion. Bones: The bones are unremarkable. RAD/Chest PA and Lateral IMPRESSION: NO ACUTE FINDINGS. Reading Location: [facility]
[2024-06-25] MEDS: Ketorolac 30 MG/ML Syringe IV (21:15)
[2024-06-25 21:18] VITALS: BP 102/67; PULSE 93; RESP 16; TEMP 36.7; O2SAT 93
== END 2024-06-25 21:32 | disposition home or self-care (01) ==
PROVIDERS: Emergency Provider Emergency Medicine; PCP Internal Medicine; Referring Provider Emergency Medicine; Visit Provider Emergency Medicine
DX: J06.9 Acute upper respiratory infection, unspecified (principal); M79.7 Fibromyalgia; R05.9 Cough, unspecified; M54.9 Dorsalgia, unspecified; R07.9 Chest pain, unspecified; R51.9 Headache, unspecified; Z98.51 Tubal ligation status; Z99.89 Dependence on other enabling machines and devices; G47.33 Obstructive sleep apnea (adult) (pediatric)
CPT/HCPCS: 71046; 80048; 85025; 87631; 94640; 96374; 99283; A4216

== ENCOUNTER 2024-11-04 11:57 | Day surgery (SDC) | payer BC, SELFPAY ==
--- NOTE | 2024-11-01 16:41 | PAT.ANE_ITS ---
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 When Was Last Pacemaker Check QUESTION #4 FULL TEXT: You/Your Family Experience fever (hyperthermia) with Anesthesia Last Oral Intake Last Oral intake: Last Oral Intake NPO since Meds taken in AM with sips of water? Meds patient instructed to take am of surgery PONV PONV - transfer and line up worker: PONV - transfer and line up worker Female Yes 11/01/24 11:51 HX of Motion Sickness No 11/01/24 11:51 HX of N/V After Surgery Yes 11/01/24 11:51 Non-Smoker Yes 11/01/24 11:51 Duration of Surgery greater No 11/01/24 11:51 than 60 minutes Number of Risk Factors 3 11/01/24 11:51 PONV Score Moderate Risk 11/01/24 11:51 Height & Weight Height & Weight: Anesthesia: Height & Weight Height 5 ft 3 in 09/27/24 07:37 Respiratory Assessment Respiratory Assessment - transfer and line up worker: Respiratory Tract Infection Hx - transfer and line up worker Hx Respiratory Tract Infection No 11/01/24 11:51 STOP Sleep Apnea STOP Sleep Apnea - transfer and line up worker: STOP Sleep Apnea - transfer and line up worker Hx Hypertension No 11/01/24 11:51 Hx Sleep Apnea Yes 11/01/24 11:51 CPAP Yes 11/01/24 11:51 BIPAP No 11/01/24 11:51 Do you snore loudly (louder than talking or can be heard Do you often feel tired/ fatigued/ sleepy during daytime? Has anyone observed you stop breathing during sleep? STOP Results Positive 11/01/24 11:51 QUESTION #5 FULL TEXT : Do you snore loudly (louder than talking or can be heard through closed doors)? 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 Specify any problems Hx of Preganancy in last 3 N/A 11/01/24 11:51 Months Nurse Filling Out Transfusion NBUCHER 11/01/24 11:51 & Questions: Date: 11/01/24 11/01/24 11:51 Time: 11:53 11/01/24 11:51 Patient unable to answer at this time (ie. confused, unrespo /Reproduction History /Reproductive History - transfer and line up worker: /Reproductive Hx- transfer and line up worker Hx Now No 11/01/24 11:51 Gestational Age (in weeks): EDC: Hx Hx Para Hx Section SAB No 11/01/24 11:51 [facility] Medical History (Updated 11/01/24 @ 12:00 by Twila Obrien) Restless legs History of diverticulitis Sleep apnea Hx of diverticulitis of colon Wears glasses Bladder disease Anemia Easy bruising Migraine headache Gastric reflux On home oxygen therapy CPAP (continuous positive airway pressure) dependence History of edema History of stress test Urinary incontinence in female Pain, joint, multiple sites Sjogrens syndrome Goiter Anxiety and depression Diverticulitis Eustachian tube dysfunction GERD (gastroesophageal reflux disease) Severe obstructive sleep apnea Dizziness Fibromyalgia Rheumatoid arthritis Cancer Uterine polyp PMB (postmenopausal bleeding) Home Medications ?Medication ?Instructions ?Recorded ?Last Taken ?Type epinephrine 0.3 mg/0.3 mL 0.3 mg (0.3 mL) IM ONCE #2 e a 06/17/23 Unknown Rx injection, auto-injector (EpiPen) estradiol 0.01% (0.1 mg/gram) 1 g vaginal QWEEK Unknown History vaginal cream Saccharomyces boulardii 250 mg 250 mg PO QDAY 05/17/24 Unknown History capsule (Digest Probiotic (S.boulardii)) cranberry 500 mg capsule 500 mg PO QDAY 05/17/24 Unkn own History famotidine 40 mg tablet 40 mg PO QHS #30 tabs Unknown Rx pantoprazole 40 mg tablet,delayed 40 mg PO BID #60 tab s 05/17/24 Unknown Rx release (Protonix) Allergy/AdvReac Type Severity Reaction Status Date / Time codeine Allergy Rash Verified 11/01/24 11:50 morphine Allergy Rash Verified 11/01/24 11:50 venom-honey bee (bee venom Allergy Unknown Verified 11/01/24 11:50 (honey bee)) Family History Father CVA (cerebral vascular accident) Sleep apnea Asthma Arthritis Low blood sugar Anesthesia complication Depression Respiratory disease Suicide attempt Mother Anemia Bowel disease ostomy Depression Dementia Grandfather Myocardial infarction Uncle Colon cancer Surgical History History of bladder surgery History of hysterectomy History of colonoscopy H/O right knee surgery IUD (intrauterine device) in place History of hip surgery History of endometrial biopsy H/O tubal ligation H/O thyroidectomy Hx of tonsillectomy H/O dilation and curettage Social History household members: spouse current occupational status: unemployed current occupation: [employer] Smoking Status: Never smoker Electronic Cigarette Use: not used alcohol intake: current alcohol intake frequency: a few times a month substance use type: does not use what type of physical activity do you participate in: none do you feel safe at home: Yes Audit: Pertinent Findings Pertinent Findings EKG Perinent findings: 05/03/2024. Sinus rhythm. Short TN syndrome. Stress test pertinent findings: 01/11/2020. Normal myocardial perfusion study without evidence of ischemia or infarction. Recommendation Anesthesia Recommendation Anesthesia recommendation: OPTIMIZED for anesthesia
[2024-11-04] VITALS (8 sets, daily range): BP systolic 102–124; BP diastolic 73–84; PULSE 90–111; RESP 14–16; TEMP 36.6–37; O2SAT 92–98; BMI 33.1
[2024-11-04] MEDS: Lactated Ringers 1,000 ML 15 ML IV (12:24)
--- NOTE | 2024-11-04 12:34 | PCM.PRE.AN2 ---
ASA Classification* ASA Classification ASA Classification: 2 Assessment & Plan Anesthesia* Anesthesia Assessment Anesthesia Assessment: Discussed sedation and/or anesthesia options, risks, benefits, and alternatives with patient/parents/legal guardian/POA. Questions invited. The patient/parents/legal guardian/POA seems to understand and agrees to proceed with anesthesia plan. Reviewed the physical assessment, medical history, allergy history and patient home medications list prior to surgery/procedure/anesthetic and documented any changes. Performed airway and anesthesia risk assessments. Anesthesia Type Anesthesia Type: MAC History Source History Obtained from:: Patient and Chart Anesthesia Focused Assessment* Temperature: 98.2 F Pulse Rate: 95 Blood Pressure: 124/82 Respiratory Rate: 16 Pulse Ox: 98 Oxygen Delivery Method: Room Air Airway Assessment Mouth opens: >3 cm Mallampati Score: II Teeth Condition: Chipped/Broken (Very poor dentition) and Missing Neck Range of motion (ROM): Full ROM Labs Anesthesia Preop lab: CBC WBC, (4.4-11.0) 9.7 K/mm3 06/25/24, : RBC, (4.2-5.4) 4.78 M/mm3 06/25/24, : Hgb, (12.0-15.0) 13.4 g/dL 06/25/24, Hct, (37-47) 40.9 % 06/25/24, Plt Count, (150-450) 249 K/mm3 06/25/24, : CHEMISTRY Potassium, (3.3-5.1) 4.0 mmol/L 06/25/24: Sodium, (133-145) 139 mmol/L 06/25/24, : BUN, (4-19) 12 mg/dL 06/25/24, : Creatinine, (0.70-1.20) 1.16 mg/dL 06/25/24, : Glucose, (70-99) 104 mg/dL H 06/25/24, : TSH, (0.300-4.200) 2.790 uIU/mL 05/03/24, 11:00 COAG PT, (11.7-14.9) 13.3 SECONDS 07/15/16, 14:21 HCG, Quant, (<9 non-preg) < 1 mIU/mL 11/19/16, 09:57 Urine Test Negative Negative 01/19/20, 10:10 Pre-Assessment Diagnosis/Proposed Procedure Planned Operative Procedure(s): egd, cscope Anesthesia History 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 When Was Last Pacemaker Check QUESTION #4 FULL TEXT: You/Your Family Experience fever (hyperthermia) with Anesthesia Last Oral Intake Last Oral intake: Last Oral Intake NPO since 08:30 11/04/24 12:17 Meds taken in AM with sips of water? Meds patient instructed to take am of surgery PONV PONV - foundry superintendant: PONV - foundry superintendant Female Yes 11/01/24 11:51 HX of Motion Sickness No 11/01/24 11:51 HX of N/V After Surgery Yes 11/01/24 11:51 Non-Smoker Yes 11/01/24 11:51 Duration of Surgery greater No 11/01/24 11:51 than 60 minutes Number of Risk Factors 3 11/01/24 11:51 PONV Score Moderate Risk 11/01/24 11:51 Height & Weight Height & Weight: Anesthesia: Height & Weight Height 5 ft 3 in 11/04/24 12:17 Weight: 84.8 kg 11/04/24 12:17 Body Mass Index (BMI) 33.1 11/04/24 12:17 Respiratory Assessment Respiratory Assessment - foundry superintendant: Respiratory Tract Infection Hx - foundry superintendant Hx Respiratory Tract Infection No 11/01/24 11:51 STOP Sleep Apnea STOP Sleep Apnea - foundry superintendant: STOP Sleep Apnea - foundry superintendant Hx Hypertension No 11/01/24 11:51 Hx Sleep Apnea Yes 11/01/24 11:51 CPAP Yes 11/01/24 11:51 BIPAP No 11/01/24 11:51 Do you snore loudly (louder than talking or can be heard Do you often feel tired/ fatigued/ sleepy during daytime? Has anyone observed you stop breathing during sleep? STOP Results Positive 11/01/24 11:51 QUESTION #5 FULL TEXT : Do you snore loudly (louder than talking or can be heard through closed doors)? 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 Specify any problems Hx of Preganancy in last 3 N/A 11/01/24 11:51 Months Nurse Filling Out Transfusion NBUCHER 11/01/24 11:51 & Questions: Date: 11/01/24 11/01/24 11:51 Time: 11:53 11/01/24 11:51 Patient unable to answer at this time (ie. confused, unrespo /Reproduction History /Reproductive History - foundry superintendant: /Reproductive Hx- foundry superintendant Hx Now No 11/01/24 11:51 Gestational Age (in weeks): EDC: Hx Hx Para Hx Section SAB No 11/01/24 11:51 Active Medications Active Medications: Current Medications Generic Name Dose Route Start Last Admin Trade Name Freq PRN Reason Stop Dose Admin Lactated Ringer's 1,000 mls @ 15 mls/hr 11/04/24 12:15 11/04/24 12:24 IV 15 mls/hr .Q48H CAMILA Administration PFSH Medical History Restless legs History of diverticulitis Sleep apnea Hx of diverticulitis of colon Wears glasses Bladder disease Anemia Easy bruising Migraine headache Gastric reflux On home oxygen therapy CPAP (continuous positive airway pressure) dependence History of edema History of stress test Urinary incontinence in female Pain, joint, multiple sites Sjogrens syndrome Goiter Anxiety and depression Diverticulitis Eustachian tube dysfunction GERD (gastroesophageal reflux disease) Severe obstructive sleep apnea Dizziness Fibromyalgia Rheumatoid arthritis Cancer Uterine polyp PMB (postmenopausal bleeding) Home Medications ?Medication ?Instructions ?Recorded ?Last Taken ?Type epinephrine 0.3 mg/0.3 mL 0.3 mg (0.3 mL) IM ONCE #2 ea 06/17/23 Unknown Rx injection, auto-injector (EpiPen) estradiol 0.01% (0.1 mg/gram) 1 g vaginal QWEEK 05/03/24 Unknown History vaginal cream Saccharomyces boulardii 250 mg 250 mg PO QDAY 05/17/24 Unknown History capsule (Digest Probiotic (S.boulardii)) cranberry 500 mg capsule 500 mg PO QDAY 05/17/24 Unknown History famotidine 40 mg tablet 40 mg PO QHS #30 tabs 05/17/24 Unknown Rx pantoprazole 40 mg tablet,delayed 40 mg PO BID #60 tabs 05/17/24 Unknown Rx release (Protonix) Allergy/AdvReac Type Severity Reaction Status Date / Time codeine Allergy Rash Verified 11/04/24 12:17 morphine Allergy Rash Verified 11/04/24 12:17 venom-honey bee (bee venom Allergy Unknown Verified 11/04/24 12:17 (honey bee)) Family History Father CVA (cerebral vascular accident) Sleep apnea Asthma Arthritis Low blood sugar Anesthesia complication Depression Respiratory disease Suicide attempt Mother Anemia Bowel disease ostomy Depression Dementia Grandfather Myocardial infarction Uncle Colon cancer Surgical History History of bladder surgery History of hysterectomy History of colonoscopy H/O right knee surgery IUD (intrauterine device) in place History of hip surgery History of endometrial biopsy H/O tubal ligation H/O thyroidectomy Hx of tonsillectomy H/O dilation and curettage Social History household members: spouse current occupational status: unemployed current occupation: [employer] Smoking Status: Never smoker Electronic Cigarette Use: not used alcohol intake: current alcohol intake frequency: a few times a month substance use type: does not use what type of physical activity do you participate in: none do you feel safe at home: Yes Review of Systems (Anesthesia) ROS Narrative System reviewed and no additional complaints, except as documented.
--- NOTE | 2024-11-04 12:48 | HP.PCM_ITS ---
HPI - General General Date of Admission: 11/04/24 Date of Service: 11/04/24 Chief Complaint: diverticulitis and gastritis HPI Narrative OTIS DURAN is a 54 F who presents with the Chief Complaint: diverticulitis and gastritis Details: OTIS DURAN is a 53 F who presents for complaints of abdominal pain continuing after diverticulitis flare most likely triggered by 's carnivore diet that she was trying. She had an ER visit 04.18.24 where abdominal/ pelvis CT w/IV contrast showed noncomplicated diverticulitis of sigmoid colon and was prescribed metronidazole, ciprofloxacin, and hydrocodone-acetaminophen. Repeat abdominal/ pelvis CT ordered at FU appointment with her PCP, completed on 05.10.24 and showed sigmoid diverticulosis without evidence of diverticulitis. She continues to have somewhat diffuse abdominal pain, rating it 3/10. She reports chronic difficulty swallowing, ever since she's had her goiter surgically removed 20 years ago. She reports cough, frequent throat clearing, terrible heartburn with reflux even while taking omeprazole daily, needing to sleep with her head elevated, frequent loose BMs 5 to 6 times daily, reduced appetite and early satiety. She reports history of RA and fibromyalgia. She denies difficulty chewing, abdominal bloating, nausea, vomiting, constipation, hematochezia, and melena. She denies knowing of any food allergies or sensitivities. She denies change in water source. She states her mother had terrible gastroparesis. [facility] Medical History Restless legs History of diverticulitis Sleep apnea Hx of diverticulitis of colon Wears glasses Bladder disease Anemia Easy bruising Migraine headache Gastric reflux On home oxygen therapy CPAP (continuous positive airway pressure) dependence History of edema History of stress test Urinary incontinence in female Pain, joint, multiple sites Sjogrens syndrome Goiter Anxiety and depression Diverticulitis Eustachian tube dysfunction GERD (gastroesophageal reflux disease) Severe obstructive sleep apnea Dizziness Fibromyalgia Rheumatoid arthritis Cancer Uterine polyp PMB (postmenopausal bleeding) Home Medications ?Medication ?Instructions ?Recorded ?Last Taken ?Type epinephrine 0.3 mg/0.3 mL 0.3 mg (0.3 mL) IM ONCE #2 e a 06/17/23 Unknown Rx injection, auto-injector (EpiPen) estradiol 0.01% (0.1 mg/gram) 1 g vaginal QWEEK Unknown History vaginal cream Saccharomyces boulardii 250 mg 250 mg PO QDAY 05/17/24 Unknown History capsule (Digest Probiotic (S.boulardii)) cranberry 500 mg capsule 500 mg PO QDAY 05/17/24 Unkn own History famotidine 40 mg tablet 40 mg PO QHS #30 tabs Unknown Rx pantoprazole 40 mg tablet,delayed 40 mg PO BID #60 tab s 05/17/24 Unknown Rx release (Protonix) Allergy/AdvReac Type Severity Reaction Status Date / Time codeine Allergy Rash Verified 11/04/24 12:17 morphine Allergy Rash Verified 11/04/24 12:17 venom-honey bee (bee venom Allergy Unknown Verified 11/04/24 12:17 (honey bee)) Family History Father CVA (cerebral vascular accident) Sleep apnea Asthma Arthritis Low blood sugar Anesthesia complication Depression Respiratory disease Suicide attempt Mother Anemia Bowel disease ostomy Depression Dementia Grandfather Myocardial infarction Uncle Colon cancer Surgical History History of bladder surgery History of hysterectomy History of colonoscopy H/O right knee surgery IUD (intrauterine device) in place History of hip surgery History of endometrial biopsy H/O tubal ligation H/O thyroidectomy Hx of tonsillectomy H/O dilation and curettage Social History household members: spouse current occupational status: unemployed current occupation: [employer] Smoking Status: Never smoker Electronic Cigarette Use: not used alcohol intake: current alcohol intake frequency: a few times a month substance use type: does not use what type of physical activity do you participate in: none do you feel safe at home: Yes ROS Constitutional Constitutional: Denies fatigue, fever(s), poor appetite, weight gain or weight loss Gastrointestinal Gastrointestinal: Denies belching, bloating, change in bowel habits, change in stool character, chewing difficulty, coffee ground emesis, constipation, cramping, diarrhea, dyspepsia, dysphagia, early satiety, excessive flatus, fecal incontinence, heartburn, hematemesis, hematochezia, hemorrhoids, loose stools, melena, nausea, odynophagia, rectal bleeding, tenesmus, vomiting or weight changes Vital Signs Vital Signs Vital Signs: 11/04/24 12:17 11/04/24 12:17 11/04/24 12:36 Temperature 98.2 F 98.2 F Temperature Source Temporal Pulse Rate 95 95 Respiratory Rate 16 16 Respiratory Pattern Normal Blood Pressure 124/82 H 124/82 H Blood Pressure Mean 96 Blood Pressure Source Monitor Blood Pressure Position Semi-Fowlers Blood Pressure Location Right Arm Pulse Ox 98 98 Oxygen Delivery Method Room Air Room Air Weight Weight: 186 lb 15.232 oz Body Mass Index (BMI) 33.1 Physical Exam Const alert, oriented x3, no apparent distress and healthy appearing General Appearance: cooperative GI normal to inspection, nondistended, normoactive bowel sounds, soft to palpation, non-tender and non-distended Percussion: normal to percussion Rectal Exam: deferred Assessment & Plan Assessment/Plan (1) Dysphagia: QUALIFIERS: Dysphagia type: unspecified Qualified Code(s): R13.10 - Dysphagia, unspecified (2) GERD (gastroesophageal reflux disease): QUALIFIERS: Esophagitis presence: without esophagitis Qualified Code(s): K21.9 - Gastro-esophageal reflux disease without esophagitis (3) Hx of diverticulitis of colon: PLAN: Assessment and Plan Assessment and Plan (1) Abdominal symptoms: (2) GERD (gastroesophageal reflux disease): Status: Acute Qualifiers: Esophagitis presence: without esophagitis Qualified Code(s): K21.9 - Gastro-esophageal reflux disease without esophagitis (3) Hx of diverticulitis of colon: Status: Acute (4) Dysphagia: Status: Acute Qualifiers: Dysphagia type: unspecified Qualified Code(s): R13.10 - Dysphagia, unspecified Orders: Orders Allergen, Food Profile 14 Today K21.9 - Gastro-esophageal reflux disease without esophagitis, R13.10 - Dysphagia, unspecified, Z87.19 - Personal history of other diseases of the digestive system JOLEEN Comprehensive Panel Today K21.9 - Gastro-esophageal reflux disease without esophagitis, R13.10 - Dysphagia, unspecified, Z87.19 - Personal history of other diseases of the digestive system ANCA Today K21.9 - Gastro-esophageal reflux disease without esophagitis, R13.10 - Dysphagia, unspecified, Z87.19 - Personal history of other diseases of the digestive system Calprotectin, Stool Today K21.9 - Gastro-esophageal reflux disease without esophagitis, R13.10 - Dysphagia, unspecified, Z87.19 - Personal history of other diseases of the digestive system CBC W/Diff, Automated Today K21.9 - Gastro-esophageal reflux disease without esophagitis, R13.10 - Dysphagia, unspecified, Z87.19 - Personal history of other diseases of the digestive system Celiac Disease Profile Today K21.9 - Gastro-esophageal reflux disease without esophagitis, R13.10 - Dysphagia, unspecified, Z87.19 - Personal history of other diseases of the digestive system CRP Today K21.9 - Gastro-esophageal reflux disease without esophagitis, R13.10 - Dysphagia, unspecified, Z87.19 - Personal history of other diseases of the digestive system Immunoglobulins G/A/M/E Today K21.9 - Gastro-esophageal reflux disease without esophagitis, R13.10 - Dysphagia, unspecified, Z87.19 - Personal history of other diseases of the digestive system IBD Expanded Profile Today K21.9 - Gastro-esophageal reflux disease without esophagitis, R13.10 - Dysphagia, unspecified, Z87.19 - Personal history of other diseases of the digestive system Comprehensive Metabolic Profil Today K21.9 - Gastro-esophageal reflux disease without esophagitis, R13.10 - Dysphagia, unspecified, Z87.19 - Personal history of other diseases of the digestive system Pancreatic Elastase, Fecal Today K21.9 - Gastro-esophageal reflux disease without esophagitis, R13.10 - Dysphagia, unspecified, Z87.19 - Personal history of other diseases of the digestive system LDH Today K21.9 - Gastro-esophageal reflux disease without esophagitis, R13.10 - Dysphagia, unspecified, Z87.19 - Personal history of other diseases of the digestive system Swallowing Function w/Video Today K21.9 - Gastro-esophageal reflux disease without esophagitis, R13.10 - Dysphagia, unspecified, Z87.19 - Personal history of other diseases of the digestive system Gastric Emptying Study Today K21.9 - Gastro-esophageal reflux disease without esophagitis, R13.10 - Dysphagia, unspecified, Z87.19 - Personal history of other diseases of the digestive system Medications: New famotidine 40 mg PO QHS 30 tabs 2RF dicyclomine 10 mg PO TID PRN 30 caps 0RF abdominal pain Changed From pantoprazole (Protonix) 40 mg PO QDAY 30 tabs 1RF To pantoprazole (Protonix) 40 mg PO BID 60 tabs 2RF Plan OTIS DURAN, is a 53 F who presents to the office today for establishment with [facility] for complaints of abdominal pain continuing after diverticulitis flare. Differential diagnoses include: gastritis, esophagitis, GERD, IBD, PUD, delayed gastric emptying. Discussed care plan with her. * blood for food allergy, IBD markers * stool for inflammatory, enzyme markers * swallowing function w/video * GET * schedule EGD to investigate gastritis * schedule colonoscopy to investigate diarrhea * office FU for test results
--- NOTE | 2024-11-04 13:15 | COLBX_PTH ---
PATIENT: OTIS DURAN LOC: EN U#:[id number] AGE/SX: 54/F ROOM: RE11/04/[address]: Dr. Marcos Butler DO : 1970 BED: DIS: 11/04/2024 SPEC #: [id number] RECD: 11/07/24 08:27 STATUS: TABATHA KIERA #: [id number] MAREK: 11/04/24 13:[address]: Marcos Butler DEPT: SURGICAL PATHOLOGY RECD BY: Joshua Rizo ENTERED: 11/07/24 09:35 SP TYPE: COLON BX OTHR DR: Dr. La Dobson MD Tissues: A - Esophagus, NOS Procedures: Surgery Specimen Level IV HEADER OPERATION: Colonoscopy, EGD and biopsy, and dilatation PRE-OP DIAGNOSIS: GERD, dysphagia and diverticulitis TISSUE SUBMITTED: A- Distal esophagus biopsy MICROSCOPIC DIAGNOSIS A. Distal esophagus, biopsy: * Squamocolumnar mucosa negative for goblet cell metaplasia. MICROSCOPIC DESCRIPTION Slides are reviewed. GROSS DESCRIPTION A. Received in fixative is one container labeled with the patient's name and designated Distal esophagus biopsy. The specimen consists of four irregular fragments of guillen tissue that measure 0.1 to 0.5 cm. Smaller fragments may not survive processing. The specimen is totally submitted in one cassette. HI 11/07/2024 CPT:96347
[2024-11-04] MEDS: Lactated Ringers 500 ML IV (13:27)
[2024-11-04] MEDS: Lidocaine 1% (5 ml sdv) 5 ML Vial 8 ML IV (13:30)
--- NOTE | 2024-11-04 13:55 | OP.EGD_ITS ---
Patient Name: Janet Jack Procedure Date: 11/04/2024 1:22 PM Date of : 1970 Age: 54 Procedure: Upper GI endoscopy Indications: Dysphagia, Heartburn Providers: Marcos Butler DO Referring MD: La Dobson Md Medicines: Monitored Anesthesia Care Patient Profile: This is a 54 year old female. Refer to note in patient chart for documentation of history and physical. Patient has symptoms of dysphagia with both liquids and solids. Complications: No immediate complications. Procedure: Pre-Anesthesia Assessment: - Prior to the procedure, a History and Physical was performed, and patient medications and allergies were reviewed. The patient is competent. The risks and benefits of the procedure and the sedation options and risks were discussed with the patient. All questions were answered and informed consent was obtained. Patient identification and proposed procedure were verified by the physician in the pre-procedure area. Mental Status Examination: alert and oriented. Airway Examination: normal oropharyngeal airway and neck mobility. Respiratory Examination: clear to auscultation. CV Examination: normal. Prophylactic Antibiotics: The patient does not require prophylactic antibiotics. Prior Anticoagulants: The patient has taken no anticoagulant or antiplatelet agents except for NSAID medication. ASA Grade Assessment: II - A patient with mild systemic disease. After reviewing the risks and benefits, the patient was deemed in satisfactory condition to undergo the procedure. The anesthesia plan was to use monitored anesthesia care (MAC). Immediately prior to administration of medications, the patient was re-assessed for adequacy to receive sedatives. The heart rate, respiratory rate, oxygen saturations, blood pressure, adequacy of pulmonary ventilation, and response to care were monitored throughout the procedure. The physical status of the patient was re-assessed after the procedure. After obtaining informed consent, the endoscope was passed under direct vision. Throughout the procedure, the patient's blood pressure, pulse, and oxygen saturations were monitored continuously. The pediatric colonoscope was introduced through the mouth, and advanced to the second part of duodenum. The upper GI endoscopy was accomplished without difficulty. The patient tolerated the procedure well. Scope In: 1:31:09 PM Scope Out: 1:36:10 PM Total Procedure Duration Time 0 hours 5 minutes 1 second Findings: LA Grade A (one or more mucosal breaks less than 5 mm, not extending between tops of 2 mucosal folds) esophagitis with no bleeding was found 38 to 40 cm from the incisors. Biopsies were taken with a cold forceps for histology. Verification of patient identification for the specimen was done. Estimated blood loss was minimal. A moderate Schatzki ring was found in the lower third of the esophagus. A guidewire was placed and the scope was withdrawn. Dilation was performed with a Savary dilator with no resistance at 60 Fr. The dilation site was examined and showed. A hiatal hernia was present. No other significant abnormalities were identified in a careful examination of the stomach. No gross lesions were noted in the entire examined duodenum. Impression: - LA Grade A reflux esophagitis with no bleeding. Biopsied. - Moderate Schatzki ring. Dilated. - Hiatal hernia. - No gross lesions in the entire examined duodenum. Recommendation: - Discharge patient to home. - Resume previous diet. - Continue present medications. - Await pathology results. Procedure Code(s): --- Professional --- 55146, Esophagogastroduodenoscopy, flexible, transoral; with insertion of guide wire followed by passage of dilator(s) through esophagus over guide wire 50299, 59,51, Esophagogastroduodenoscopy, flexible, transoral; with biopsy, single or multiple CPT copyright 2021 [employer]. All rights reserved. The codes documented in this report are preliminary and upon campaign coordinator review may be revised to meet current compliance requirements. Marcos Butler DO 11/04/2024 1:55:00 PM This report has been signed electronically. Number of Addenda: 0 Note Initiated On: 11/04/2024 1:22 PM
--- NOTE | 2024-11-04 13:55 | OP.PROVAT_ITS ---
11/04/2024 La Dobson Md Re : Upper GI endoscopy procedure for Janet Jack Dear Olya This procedure was performed on Monday, November 04, 2024. My impressions and recommendations are as follows: Impressions : - LA Grade A reflux esophagitis with no bleeding. Biopsied. - Moderate Schatzki ring. Dilated. - Hiatal hernia. - No gross lesions in the entire examined duodenum. Recommendations : - Discharge patient to home. - Resume previous diet. - Continue present medications. - Await pathology results. My findings are described in the full procedure note, which is enclosed. If I can be of further assistance, please feel free to contact me at . Sincerely, Marcos Butler, 11/04/2024 1:55:00 PM This report has been signed electronically.
--- NOTE | 2024-11-04 13:55 | PCM.POST.ANE ---
Anesthesia: Postop Eval I Current Vital Signs Temperature: 98 F Pulse Rate: 111 Blood Pressure: 119/73 Respiratory Rate: 14 Pulse Ox: 98 Oxygen Delivery Method: Room Air Assessment Airway patent: Yes Spontaneous unlabored respirations: Yes Mental status: Awake nausea: No Vomiting: No Anesthesia Complication: No Fluid Hydration Crystalloid volume administer (ml): 500 Total IV fluid infused: 500 Progress Note Anesthesia document: Postop Eval 1 completed: Yes
--- NOTE | 2024-11-04 13:57 | OP.PROVAT_ITS ---
11/04/2024 La Dobson Md Re : Colonoscopy procedure for Janet Jack Dear Olya This procedure was performed on Monday, November 04, 2024. My impressions and recommendations are as follows: Impressions : - Diverticulosis in the recto-sigmoid colon, in the sigmoid colon, in the descending colon, at the splenic flexure, in the transverse colon, at the hepatic flexure and in the ascending colon. - The examination was otherwise normal on direct and retroflexion views. - No specimens collected. Recommendations : - Discharge patient to home. - Resume previous diet. - Continue present medications. - Await pathology results. - Repeat colonoscopy in 10 years for screening purposes. My findings are described in the full procedure note, which is enclosed. If I can be of further assistance, please feel free to contact me at . Sincerely, Marcos Butler, 11/04/2024 1:56:53 PM This report has been signed electronically.
--- NOTE | 2024-11-04 13:57 | OP.COLON_ITS ---
Patient Name: Janet Jack Procedure Date: 11/04/2024 1:36 PM Date of : 1970 Age: 54 Procedure: Colonoscopy Indications: Screening for colorectal malignant neoplasm Providers: Marcos Butler DO Referring MD: La Dobson Md Medicines: Monitored Anesthesia Care Patient Profile: This is a 54 year old female. Refer to note in patient chart for documentation of history and physical. Patient has symptoms of dysphagia with both liquids and solids. Last Colonoscopy: none. The patient's first colonoscopy is today. Complications: No immediate complications. Procedure: Pre-Anesthesia Assessment: - Prior to the procedure, a History and Physical was performed, and patient medications and allergies were reviewed. The patient is competent. The risks and benefits of the procedure and the sedation options and risks were discussed with the patient. All questions were answered and informed consent was obtained. Patient identification and proposed procedure were verified by the physician in the pre-procedure area. Mental Status Examination: alert and oriented. Airway Examination: normal oropharyngeal airway and neck mobility. Respiratory Examination: clear to auscultation. CV Examination: normal. Prophylactic Antibiotics: The patient does not require prophylactic antibiotics. Prior Anticoagulants: The patient has taken no anticoagulant or antiplatelet agents except for NSAID medication. ASA Grade Assessment: II - A patient with mild systemic disease. After reviewing the risks and benefits, the patient was deemed in satisfactory condition to undergo the procedure. The anesthesia plan was to use monitored anesthesia care (MAC). Immediately prior to administration of medications, the patient was re-assessed for adequacy to receive sedatives. The heart rate, respiratory rate, oxygen saturations, blood pressure, adequacy of pulmonary ventilation, and response to care were monitored throughout the procedure. The physical status of the patient was re-assessed after the procedure. After I obtained informed consent, the scope was passed under direct vision. Throughout the procedure, the patient's blood pressure, pulse, and oxygen saturations were monitored continuously. The pediatric colonoscope was introduced through the anus and advanced to the cecum, identified by appendiceal orifice and ileocecal valve. The colonoscopy was performed without difficulty. The patient tolerated the procedure well. The quality of the bowel preparation was adequate. The ileocecal valve, appendiceal orifice, and rectum were photographed. Scope In: 1:38:20 PM Scope Withdrawal Time 0 hours 8 minutes 24 seconds Scope Out: 1:48:33 PM Total Procedure Duration Time 0 hours 10 minutes 13 seconds Findings: The perianal and digital rectal examinations were normal. Multiple small and large-mouthed diverticula were found in the recto-sigmoid colon, sigmoid colon, descending colon, splenic flexure, transverse colon, hepatic flexure and ascending colon. The exam was otherwise without abnormality on direct and retroflexion views. Impression: - Diverticulosis in the recto-sigmoid colon, in the sigmoid colon, in the descending colon, at the splenic flexure, in the transverse colon, at the hepatic flexure and in the ascending colon. - The examination was otherwise normal on direct and retroflexion views. - No specimens collected. Recommendation: - Discharge patient to home. - Resume previous diet. - Continue present medications. - Await pathology results. - Repeat colonoscopy in 10 years for screening purposes. Procedure Code(s): --- Professional --- G0121, Colorectal cancer screening; colonoscopy on individual not meeting criteria for high risk CPT copyright 2021 [employer]. All rights reserved. The codes documented in this report are preliminary and upon sales manager review may be revised to meet current compliance requirements. Marcos Butler DO 11/04/2024 1:56:53 PM This report has been signed electronically. Number of Addenda: 0 Note Initiated On: 11/04/2024 1:36 PM
--- NOTE | 2024-11-04 15:27 | POSTOPAN2_ITS ---
Anesthesia Postop Eval I Sum Postop Eval Completion status Anesthesia document: Postop Eval 1 completed: Yes Anesthesia Postop Eval I Summary Anesthesia Postop Eval I Summary: Anesthesia Postop Eval I: Assessment Summary Airway patent Yes 11/04/24 13:56 [email or web address] Spontaneous unlabored Yes 11/04/24 13:56 [email or web address] respirations Mental status Awake 11/04/24 13:56 [email or web address] nausea No 11/04/24 13:56 [email or web address] Vomiting No 11/04/24 13:56 [email or web address] Anesthesia Postop Eval I: Fluid Summary Crystalloid volume administer 500 11/04/24 13:56 [email or web address] (ml) Colloids volume administered ( ml) Blood Product volume administered (ml) Total IV fluid infused 500 11/04/24 13:56 [email or web address] Anesthesia Postop Eval I: Summary Notes Anesthesia Complication No 11/04/24 13:56 [email or web address] Anesthesia Complication Comment: Post-operative progress note Anesthesia: Postop Eval II Evaluation Mental status: Awake and Calm Pain Level: 1 nausea: No Vomiting: No Complications Anesthesia Complication: No
--- NOTE | 2024-11-04 15:27 | PCM.POSTANE2 ---
Anesthesia Postop Eval I Sum Postop Eval Completion status Anesthesia document: Postop Eval 1 completed: Yes Anesthesia Postop Eval I Summary Anesthesia Postop Eval I Summary: Anesthesia Postop Eval I: Assessment Summary Airway patent Yes 11/04/24 13:56 [email or web address] Spontaneous unlabored Yes 11/04/24 13:56 BRAKE [email or web address] [email or web address] respirations Mental status Awake 11/04/24 13:56 [email or web address] nausea No 11/04/24 13:56 BRAKE [email or web address] [email or web address] Vomiting No 11/04/24 13:56 BRAKE [email or web address] Anesthesia Postop Eval I: Fluid Summary Crystalloid volume administer 500 11/04/24 13:56 BRAKE [email or web address] (ml) Colloids volume administered ( ml) Blood Product volume administered (ml) Total IV fluid infused 500 11/04/24 13:56 BRAKE [email or web address] Anesthesia Postop Eval I: Summary Notes Anesthesia Complication No 11/04/24 13:56 BRAKE [email or web address] Anesthesia Complication Comment: Post-operative progress note Anesthesia: Postop Eval II Evaluation Mental status: Awake and Calm Pain Level: 1 nausea: No Vomiting: No Complications Anesthesia Complication: No
== END 2024-11-04 14:46 | disposition home or self-care (01) ==
LOC: EN 11:59 → AC 12:01
PROVIDERS: PCP Internal Medicine; Referring Provider Internal Medicine; Visit Provider Internal Medicine Gastroenterology
PROC: 0DJD8ZZ Inspection of Lower Intestinal Tract, Via Natural or Artificial Opening Endoscopic (ICD-10-PCS; CPT 45378; principal; 2024-11-04 13:10)
DX: Z12.11 Encounter for screening for malignant neoplasm of colon (principal); K21.00 Gastro-esophageal reflux disease with esophagitis, without bleeding; K44.9 Diaphragmatic hernia without obstruction or gangrene; K57.30 Diverticulosis of large intestine without perforation or abscess without bleeding; K29.70 Gastritis, unspecified, without bleeding; R13.10 Dysphagia, unspecified; Z79.899 Other long term (current) drug therapy; Z87.19 Personal history of other diseases of the digestive system; K22.2 Esophageal obstruction; G47.30 Sleep apnea, unspecified; Z99.89 Dependence on other enabling machines and devices; Z90.710 Acquired absence of both cervix and uterus; Z98.51 Tubal ligation status
CPT/HCPCS: 43239; 45378; 43248; 88305; C1769

== ENCOUNTER 2024-12-23 07:56 | Day surgery (SDC) | payer BC, SELFPAY ==
[2024-12-23 08:10] VITALS: BP 131/85; PULSE 79; TEMP 36.6; O2SAT 95
[2024-12-23] MEDS: Lidocaine Jelly 2% 20 ML Syringe (URO-JET) 1 APPLIC (08:12)
== END 2024-12-23 08:39 | disposition home or self-care (01) ==
PROVIDERS: PCP Internal Medicine; Referring Provider Internal Medicine; Visit Provider Surgery
DX: K44.9 Diaphragmatic hernia without obstruction or gangrene (principal); K21.9 Gastro-esophageal reflux disease without esophagitis
CPT/HCPCS: 91010

== ENCOUNTER → 2024-12-30 | Outpatient (CLI) | payer BC, SELFPAY ==
--- NOTE | 2024-12-30 09:00 | RAD_ITS ---
PROCEDURE: UPPER GI W/BA SWALLOW 12/30/2024 REASON FOR EXAM: K44.9 - DIAPHRAGMATIC HERNIA WITHOUT OBSTRUCTION OR GANGRENE TECHNIQUE: Procedure Code: RADUGIBS Modality: RF Procedure: Single and double contrast esophagram and upper GI series (combined dictation) FLUOROSCOPIC TIME: 2 minutes 7 seconds. FLUOROGRAPHIC IMAGES: Numerous. Dose: DAP 73.9 cGy-cm2. COMPARISON: None. FINDINGS: Esophagus: Normal peristalsis. No mass ulceration or stricture. A normal-appearing esophagogastric junction is noted. Recurrent gastroesophageal reflux was seen. Stomach: A small variable sliding-type hiatal hernia is noted. No evidence of gastric mass ulceration or mucosal abnormality. Duodenum: Incidental note is made of a small diverticulum at the 2nd portion of the duodenum. Pylorus duodenal bulb and duodenal C-loop otherwise appear normal. RAD/Upper GI w/BA Swallow IMPRESSION: 1. Small variable sliding-type hiatal hernia. 2. Gastroesophageal reflux. Reading Location: [place] [address]
== END | disposition home or self-care (01) ==
PROVIDERS: PCP Internal Medicine; Referring Provider Surgery; Visit Provider Surgery
DX: K44.9 Diaphragmatic hernia without obstruction or gangrene (principal)
CPT/HCPCS: 74246

== ENCOUNTER 2025-01-09 11:52 | Inpatient (IN) | payer BC, SELFPAY ==
--- NOTE | 2025-01-04 11:01 | PAT.ANESEVAL ---
Pre-Assessment Diagnosis/Proposed Procedure Planned Operative Procedure(s): LAP ROBOTIC WILLY WITH HH REPAIR Anesthesia History Anesthesia History - network support administrator: Anesthesia History - network support administrator Hx Hospitalization No 01/04/25 09:42 Any Problems With Anesthesia Yes: SLOW TO AWAKEN 01/04/25 09:42 Cholinesterase deficiency No 01/04/25 09:42 You/Your Family Experience No 01/04/25 09:42 fever (hyperthermia) with Relationship Recent Exposure to Contagious No 11/04/24 12:17 Disease Does patient have nerve No 01/04/25 09:42 stimulator Patient instructed to have device shut off --Does patient have Pacemaker or ICD? When Was Last Pacemaker Check QUESTION #4 FULL TEXT: You/Your Family Experience fever (hyperthermia) with Anesthesia Last Oral Intake Last Oral intake: Last Oral Intake NPO since Meds taken in AM with sips of water? Meds patient instructed to take am of surgery PONV PONV - network support administrator: PONV - network support administrator Female Yes 01/04/25 09:42 HX of Motion Sickness No 01/04/25 09:42 HX of N/V After Surgery No 01/04/25 09:42 Non-Smoker Yes 01/04/25 09:42 Duration of Surgery greater Yes 01/04/25 09:42 than 60 minutes Number of Risk Factors 3 01/04/25 09:42 PONV Score Moderate Risk 01/04/25 09:42 Height & Weight Height & Weight: Anesthesia: Height & Weight Height 5 ft 3 in 12/09/24 08:07 Respiratory Assessment Respiratory Assessment - network support administrator: Respiratory Tract Infection Hx - network support administrator Hx Respiratory Tract Infection No 01/04/25 09:42 STOP Sleep Apnea STOP Sleep Apnea - network support administrator: STOP Sleep Apnea - network support administrator Hx Hypertension No 01/04/25 09:42 Hx Sleep Apnea Yes 01/04/25 09:42 CPAP Yes 01/04/25 09:42 BIPAP No 01/04/25 09:42 Do you snore loudly (louder than talking or can be heard Do you often feel tired/ fatigued/ sleepy during daytime? Has anyone observed you stop breathing during sleep? STOP Results Positive 01/04/25 09:42 QUESTION #5 FULL TEXT : Do you snore loudly (louder than talking or can be heard through closed doors)? 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 Specify any problems Hx of Preganancy in last 3 No 01/04/25 09:42 Months Nurse Filling Out Transfusion DSCHRIBER 01/04/25 09:42 & Questions: Date: 01/04/25 01/04/25 09:42 Time: 09:43 01/04/25 09:42 Patient unable to answer at this time (ie. confused, unrespo /Reproduction History /Reproductive History - network support administrator: /Reproductive Hx- network support administrator Hx Now No 01/04/25 09:42 Gestational Age (in weeks): EDC: Hx Hx Para Hx Section SAB No 01/04/25 09:42 Does the father of the baby or his family experience fever w Father of the baby Malignant Hypertension history comment [facility] Medical History (Updated 01/04/25 @ 09:55 by Sana Brewer) Restless legs History of diverticulitis Wears glasses Bladder disease Anemia Easy bruising Migraine headache Gastric reflux On home oxygen therapy CPAP (continuous positive airway pressure) dependence History of edema Pain, joint, multiple sites Sjogrens syndrome Goiter Anxiety and depression Dizziness Fibromyalgia Rheumatoid arthritis Cancer Uterine polyp PMB (postmenopausal bleeding) Home Medications ?Medication ?Instructions ?Recorded ?Last Taken ?Type estradiol 0.01% (0.1 mg/gram) 1 g vaginal QWEEK 05/03/24 Unknown History vaginal cream Saccharomyces boulardii 250 mg 250 mg PO QDAY 05/17/24 Unknown History capsule (Digest Probiotic (S.boulardii)) cranberry 500 mg capsule 500 mg PO QDAY 05/17/24 Unknown History epinephrine 0.3 mg/0.3 mL 0.3 mg (0.3 mL) IM ONCE #2 ea 11/25/24 Unknown Rx injection, auto-injector (EpiPen) famotidine 40 mg tablet 40 mg PO QHS #30 tabs 11/25/24 Unknown Rx pantoprazole 40 mg tablet,delayed 40 mg PO BID #60 tabs 11/25/24 Unknown Rx release (Protonix) Allergy/AdvReac Type Severity Reaction Status Date / Time codeine Allergy Rash Verified 01/04/25 09:40 morphine Allergy Rash Verified 01/04/25 09:40 venom-honey bee (bee venom Allergy Unknown Verified 01/04/25 09:40 (honey bee)) Family History Father CVA (cerebral vascular accident) Sleep apnea Asthma Arthritis Low blood sugar Anesthesia complication Depression Respiratory disease Suicide attempt Mother Anemia Bowel disease ostomy Depression Dementia Grandfather Myocardial infarction Uncle Colon cancer Surgical History (Updated 01/04/25 @ 09:48 by Sana Brewer) History of hysterectomy History of colonoscopy H/O right knee surgery History of hip surgery History of endometrial biopsy H/O tubal ligation H/O thyroidectomy Hx of tonsillectomy H/O dilation and curettage Social History household members: spouse current occupational status: unemployed current occupation: [employer] Smoking Status: Never smoker Electronic Cigarette Use: not used alcohol intake: current alcohol intake frequency: a few times a month substance use type: does not use what type of physical activity do you participate in: none do you feel safe at home: Yes Audit: Pertinent Findings Pertinent Findings EKG Perinent findings: 04/2024: SR with short GA interval Recommendation Anesthesia Recommendation Anesthesia recommendation: OPTIMIZED for anesthesia
[2025-01-04 12:12] LABS: Hematocrit 41.6 % (37-47); Hemoglobin 13.4 g/dL (12.0-15.0); Mean Corp Hgb Conc 32.2 g/dL (32-36); Mean Corpuscular Volume 86.0 fL (81-99); Mean Platelet Vol. 9.7 fl (6.2-12.0); Platelet Count 316 K/mm3 (150-450); RBC Distribution Width CV 15.0 % (11.6-14.6); RBC Distribution Width SD 47.7 fl (35.1-43.9); Red Blood Count 4.84 M/mm3 (4.2-5.4); White Blood Count 7.3 K/mm3 (4.4-11.0)
[2025-01-04 12:26] LABS: Prothrombin Time (Protime)PT. 12.9 SECONDS (11.7-14.9)
[2025-01-04 12:27] LABS: Partial Thromboplast Time 27.3 Seconds (24.1-36.2)
[2025-01-04 12:48] LABS: AST(SGOT) 23 U/L (<=31); Alanine Aminotransfer ALT/SGPT 16 U/L (<=34); Albumin, Serum 4.4 g/dL (3.5-5.0); Alkaline Phosphatase 83 U/L (35-104); Bilirubin, Direct 0.14 mg/dL (0.00-0.30); Globulin 3.3 g/dL (2.2-4.2)
[2025-01-09] VITALS (21 sets, daily range): BP systolic 118–134; BP diastolic 73–90; PULSE 60–106; RESP 12–18; TEMP 36.2–37.1; O2SAT 80–99; BMI 32.8
[2025-01-09] MEDS: Lactated Ringers 1,000 ML 15 ML IV (08:00)
--- NOTE | 2025-01-09 08:14 | PCM.PRE.AN2 ---
ASA Classification* ASA Classification ASA Classification: 2 Assessment & Plan Anesthesia* Anesthesia Assessment Anesthesia Assessment: Discussed sedation and/or anesthesia options, risks, benefits, and alternatives with patient/parents/legal guardian/POA. Questions invited. The patient/parents/legal guardian/POA seems to understand and agrees to proceed with anesthesia plan. Reviewed the physical assessment, medical history, allergy history and patient home medications list prior to surgery/procedure/anesthetic and documented any changes. Performed airway and anesthesia risk assessments. Anesthesia Type Anesthesia Type: General History Source History Obtained from:: Patient and Chart Anesthesia Focused Assessment* Temperature: 97.7 F Pulse Rate: 90 Blood Pressure: 123/81 Respiratory Rate: 16 Pulse Ox: 96 Oxygen Delivery Method: Room Air Airway Assessment Mouth opens: >3 cm Mallampati Score: II Teeth Condition: Chipped/Broken Neck Range of motion (ROM): Full ROM Labs Anesthesia Preop lab: CBC WBC, (4.4-11.0) 7.3 K/mm3 01/04/25, 10: RBC, (4.2-5.4) 4.84 M/mm3 01/04/25, 10:32 Hgb, (12.0-15.0) 13.4 g/dL 01/04/25, : Hct, (37-47) 41.6 % 01/04/25, :32 Plt Count, (150-450) 316 K/mm3 01/04/25, 10:32 CHEMISTRY Potassium, (3.3-5.1) 4.0 mmol/L 06/25/24, 19:32 Sodium, (133-145) 139 mmol/L 06/25/24, :32 BUN, (4-19) 12 mg/dL 06/25/24, : Creatinine, (0.70-1.20) 1.16 mg/dL 06/25/24, : Glucose, (70-99) 104 mg/dL H 06/25/24, 19: TSH, (0.300-4.200) 2.790 uIU/mL 05/03/24, 11:00 COAG PT, (11.7-14.9) 12.9 SECONDS 01/04/25, 10:32 HCG, Quant, (<9 non-preg) < 1 mIU/mL 11/19/16, 09:57 Urine Test Negative Negative 01/19/20, 10:10 Pre-Assessment Diagnosis/Proposed Procedure Planned Operative Procedure(s): LAP ROBOTIC WILLY WITH HH REPAIR Anesthesia History Anesthesia History - children's aide: Anesthesia History - children's aide Hx Hospitalization No 01/04/25 09:42 Any Problems With Anesthesia Yes: SLOW TO AWAKEN 01/04/25 09:42 Cholinesterase deficiency No 01/04/25 09:42 You/Your Family Experience No 01/04/25 09:42 fever (hyperthermia) with Relationship Recent Exposure to Contagious No 01/09/25 08:01 Disease Does patient have nerve No 01/04/25 09:42 stimulator Patient instructed to have device shut off --Does patient have Pacemaker No 01/09/25 08:01 or ICD? When Was Last Pacemaker Check QUESTION #4 FULL TEXT: You/Your Family Experience fever (hyperthermia) with Anesthesia Last Oral Intake Last Oral intake: Last Oral Intake NPO since 06:30 01/09/25 08:01 Meds taken in AM with sips of Yes 01/09/25 08:01 water? Meds patient instructed to take am of surgery PONV PONV - children's aide: PONV - children's aide Female Yes 01/04/25 09:42 HX of Motion Sickness No 01/04/25 09:42 HX of N/V After Surgery No 01/04/25 09:42 Non-Smoker Yes 01/04/25 09:42 Duration of Surgery greater Yes 01/04/25 09:42 than 60 minutes Number of Risk Factors 3 01/04/25 09:42 PONV Score Moderate Risk 01/04/25 09:42 Height & Weight Height & Weight: Anesthesia: Height & Weight Height 5 ft 3 in 01/09/25 08:01 Weight: 84 kg 01/09/25 08:01 Body Mass Index (BMI) 32.8 01/09/25 08:01 Respiratory Assessment Respiratory Assessment - children's aide: Respiratory Tract Infection Hx - children's aide Hx Respiratory Tract Infection No 01/04/25 09:42 STOP Sleep Apnea STOP Sleep Apnea - children's aide: STOP Sleep Apnea - children's aide Hx Hypertension No 01/04/25 09:42 Hx Sleep Apnea Yes 01/04/25 09:42 CPAP Yes 01/04/25 09:42 BIPAP No 01/04/25 09:42 Do you snore loudly (louder than talking or can be heard Do you often feel tired/ fatigued/ sleepy during daytime? Has anyone observed you stop breathing during sleep? STOP Results Positive 01/04/25 09:42 QUESTION #5 FULL TEXT : Do you snore loudly (louder than talking or can be heard through closed doors)? 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 Specify any problems Hx of Preganancy in last 3 No 01/04/25 09:42 Months Nurse Filling Out Transfusion DSCHRIBER 01/04/25 09:42 & Questions: Date: 01/04/25 01/04/25 09:42 Time: 09:43 01/04/25 09:42 Patient unable to answer at this time (ie. confused, unrespo /Reproduction History /Reproductive History - children's aide: /Reproductive Hx- children's aide Hx Now No 01/04/25 09:42 Gestational Age (in weeks): EDC: Hx Hx Para Hx Section SAB No 01/04/25 09:42 Does the father of the baby or his family experience fever w Father of the baby Malignant Hypertension history comment Active Medications Active Medications: Current Medications Generic Name Dose Route Start Last Admin Trade Name Freq PRN Reason Stop Dose Admin Cefazolin Sodium 2 gm/ Sodium 110 mls @ 200 mls/hr 01/09/25 09:15 Chloride IV 01/09/25 09:47 INTRAOP ONE Lactated Ringer's 1,000 mls @ 15 mls/hr 01/09/25 08:00 01/09/25 08:00 IV 15 mls/hr .Q48H CAMILA Administration PFSH Medical History Restless legs History of diverticulitis Wears glasses Bladder disease Anemia Easy bruising Migraine headache Gastric reflux On home oxygen therapy CPAP (continuous positive airway pressure) dependence History of edema Pain, joint, multiple sites Sjogrens syndrome Goiter Anxiety and depression Dizziness Fibromyalgia Rheumatoid arthritis Cancer Uterine polyp PMB (postmenopausal bleeding) Home Medications ?Medication ?Instructions ?Recorded ?Last Taken ?Type estradiol 0.01% (0.1 mg/gram) 1 g vaginal QWEEK 05/03/24 Unknown History vaginal cream Saccharomyces boulardii 250 mg 250 mg PO QDAY 05/17/24 Unknown History capsule (Digest Probiotic (S.boulardii)) cranberry 500 mg capsule 500 mg PO QDAY 05/17/24 Unknown History epinephrine 0.3 mg/0.3 mL 0.3 mg (0.3 mL) IM ONCE #2 ea 11/25/24 Unknown Rx injection, auto-injector (EpiPen) famotidine 40 mg tablet 40 mg PO QHS #30 tabs 11/25/24 Unknown Rx pantoprazole 40 mg tablet,delayed 40 mg PO BID #60 tabs 11/25/24 01/09/25 06:30 Rx release (Protonix) Allergy/AdvReac Type Severity Reaction Status Date / Time codeine Allergy Rash Verified 01/09/25 07:59 morphine Allergy Rash Verified 01/09/25 07:59 venom-honey bee (bee venom Allergy Unknown Verified 01/09/25 07:59 (honey bee)) Family History Father CVA (cerebral vascular accident) Sleep apnea Asthma Arthritis Low blood sugar Anesthesia complication Depression Respiratory disease Suicide attempt Mother Anemia Bowel disease ostomy Depression Dementia Grandfather Myocardial infarction Uncle Colon cancer Surgical History History of hysterectomy History of colonoscopy H/O right knee surgery History of hip surgery History of endometrial biopsy H/O tubal ligation H/O thyroidectomy Hx of tonsillectomy H/O dilation and curettage Social History household members: spouse current occupational status: unemployed current occupation: [employer] Smoking Status: Never smoker Electronic Cigarette Use: not used alcohol intake: current alcohol intake frequency: a few times a month substance use type: does not use what type of physical activity do you participate in: none do you feel safe at home: Yes Review of Systems (Anesthesia) ROS Narrative System reviewed and no additional complaints, except as documented.
--- NOTE | 2025-01-09 08:47 | PCM.HP.BLA ---
History and Physical Date of Admission: 01/09/25 Intake Vital Signs 12/10/2507:07 Height 5 ft 3 in BP 127/85 H Blood Pressure Location Rt brachial Position Sitting Respiration 17 Pulse 89 Pulse Source Monitor Pulse Oximetry (%) 98 Oxygen Delivery Method room air Intake Visit Reasons: DISCUSS MANOMETRY Chief Complaint: discuss manometry results Allergies codeine Allergy (Verified 01/04/25 08:05) Rash morphine Allergy (Verified 01/04/25 08:05) Rash venom-honey bee (bee venom (honey bee)) Allergy (Verified 01/04/25 08:05) Unknown Medications ?Medication ?Instructions ?Recorded ?Confirmed ?Type estradiol 0.01% (0.1 mg/gram) 1 g vaginal QWEEK 05/03/24 01/04/25 History vaginal cream Saccharomyces boulardii 250 mg 250 mg PO QDAY 05/17/24 01/04/25 History capsule (Digest Probiotic (S.boulardii)) cranberry 500 mg capsule 500 mg PO QDAY 05/17/24 01/04/25 History epinephrine 0.3 mg/0.3 mL 0.3 mg (0.3 mL) IM ONCE #2 ea 11/25/24 01/04/25 Rx injection, auto-injector (EpiPen) famotidine 40 mg tablet 40 mg PO QHS #30 tabs 11/25/24 01/04/25 Rx pantoprazole 40 mg tablet,delayed 40 mg PO BID #60 tabs 11/25/24 01/04/25 Rx release (Protonix) PFSH Medical History Restless legs History of diverticulitis Sleep apnea Hx of diverticulitis of colon Wears glasses Bladder disease Anemia Easy bruising Migraine headache Gastric reflux On home oxygen therapy CPAP (continuous positive airway pressure) dependence History of edema History of stress test Urinary incontinence in female Pain, joint, multiple sites Sjogrens syndrome Goiter Anxiety and depression Diverticulitis Eustachian tube dysfunction GERD (gastroesophageal reflux disease) Severe obstructive sleep apnea Dizziness Fibromyalgia Rheumatoid arthritis Cancer Uterine polyp PMB (postmenopausal bleeding) Surgical History History of bladder surgery History of hysterectomy History of colonoscopy H/O right knee surgery IUD (intrauterine device) in place History of hip surgery History of endometrial biopsy H/O tubal ligation H/O thyroidectomy Hx of tonsillectomy H/O dilation and curettage Family History Father CVA (cerebral vascular accident) Sleep apnea Asthma Arthritis Low blood sugar Anesthesia complication Depression Respiratory disease Suicide attempt Mother Anemia Bowel disease ostomy Depression Dementia Grandfather Myocardial infarction Uncle Colon cancer Social History household members: spouse current occupational status: unemployed current occupation: [employer] Smoking Status: Never smoker Electronic Cigarette Use: not used alcohol intake: current alcohol intake frequency: a few times a month substance use type: does not use what type of physical activity do you participate in: none do you feel safe at home: Yes HPI HPI HPI: Patient is a 54-year-old female with GERD. She had a hiatal hernia on EGD and was referred here. We ordered manometry and upper GI. This was reviewed with her during today's visit. ROS General General: Yes fatigue; No weight change, appetite, colon cancer, breast cancer or weakness HEENT HEENT: Yes difficulty swallowing; No eye injury, eye surgery, swollen glands or hoarseness Endo Endocrine: No thyroid disease, diabetes mellitus, thyroid cancer, Hair loss, heat intolerance or cold intolerance Skin Skin: No rash or changing moles Musc Musculoskeletal: Yes back problems and rheumatoid arthritis; No arthritis, gout or joint pain Cardio Cardiovascular: No murmur, pacemaker, heart disease, atrial fibrillation, high blood pressure, heart attack, heart stent, palpitations, shortness of breath with exertion or chest pain Psych Psychiatric: No depression, anxiety or hearing voices Resp Respiratory: No shortness of breath, Yes sleep apnea, Yes cough, No COPD, No asthma, No emphysema and No wheezing Gastro Gastrointestinal: No abdominal pain, No nausea or vomiting, No diarrhea, No constipation, No blood in stool, Yes acid reflux, No hemorrhoids, No ulcers, No gallbladder problem and No black,tarry stools Reese Hematologic: No blood thinners, No blood disorders, No bleeding, No anemia and No blood clots Neuro Neurologic: No system reviewed and no additional complaints, except as documented, No as per HPI, No abnormal gait, No abnormal hearing, No abnormal movements, No abnormal speech, No behavioral changes, No burning sensations, No confusion, No convulsions, No disequilibrium, No dizziness, No localized weakness, No frequent falls, No headache(s), No lack of coordination, No loss of vision, No memory loss, No numbness, No other visual disturbances, No radicular pain, No restless legs, No sensory deficit, No syncope, No tingling, No tremor(s), No weakness and No other Exam Const General: cooperative Orientation: alert and oriented x3 HENNM Head: normal to inspection Neck Neck: normal visual inspection and full ROM Chest Chest palpation & inspection: normal inspection of the chest Resp Effort & Inspection: normal respiratory effort Auscultation: clear to auscultation bilaterally Cardio Rate: regular rate Rhythm: regular rhythm GI Inspection: non-distended Palpation: soft and nontender Skin General: no rashes or lesions noted Neuro General: patient alert and patient oriented x3 Extrem General: full ROM Psych Appearance: grossly normal Mental Status: mental status grossly normal Assessment and Plan Assessment and Plan (1) Hiatal hernia: Status: Acute Plan: The patient had an upper GI which showed reflux and a sliding hiatal hernia. She had manometry which was normal. I discussed robotic Lacy fundoplication with hiatal hernia repair in detail with the patient. I discussed again the risks of the procedure such as bleeding, infection, injury to other organs around the esophagus like the heart or lungs or liver or spleen or the esophagus itself. Patient understands all the risks and all of her questions were answered. She was given postoperative instructions as well as postoperative diet instructions. Her surgery is scheduled for Thursday. Michael Corado MD Pager: [facility] [address] [place] [address], [address] [place] [address] Office: I have examined the patient and the H&P has been reviewed. There are no clinical changes since date of exam.
[2025-01-09] MEDS: Cefazolin 1 GM/5 ML Vial 2 GM IV (09:30)
[2025-01-09] MEDS: Lidocaine 1% (5 ml sdv) 5 ML Vial 10 ML IV (09:35)
[2025-01-09] MEDS: fentaNYL 100 MCG/2 ML Ampul 200 MCG IV (10:34)
--- NOTE | 2025-01-09 11:44 | PCM.OPRPT ---
Operative Report (Standard) Operative Information Date of Procedure: 01/09/25 Pre-Operative Diagnosis: Hiatal hernia and GERD Post-Operative Diagnosis: Same Surgery/Procedure Performed: Robotic assisted laparoscopic hiatal hernia repair with Lacy fundoplication and EGD facility assistant: Yes Technical Marketing Engineer: Teofilo Rose Tasks completed by residential living assistant: Opening & closing and Retracting Type of Anesthesia: General/Regional RN Documented Start/Stop Times: Operation Date: 01/09/25 09:15 Case Time Into Pre-Op 01/09/25 07:49 Out of Pre-Op 01/09/25 09:27 Anesthesia Start 01/09/25 09:30 Into Room 01/09/25 09:30 Procedure Start 01/09/25 09:51 Procedure End 01/09/25 11:32 Anesthesia End 01/09/25 11:37 Out of Room 01/09/25 11:37 Into Recovery 01/09/25 11:43 Procedure Start Time: 09:51 Procedure Stop Time: 11:32 Select all DRAINS/GRAFTS/IMPLANTS that apply: None Estimated Blood Loss: 10 Specimen collected: No Description of surgery: Patient was brought back to the operating room and general anesthesia was induced. The abdomen was prepped and draped in usual sterile fashion. An incision was made in the right upper quadrant and the fascia was grasped and elevated and a Veress needle was placed into the abdomen. A drop test was performed. The abdomen was insufflated to 15 mmHg. The Veress needle was removed and a port was placed. Camera was placed into the abdomen to check for injuries from entry and there were none. Next an incision was made in the epigastric area and a port was placed and then removed. The Sharon liver retractor was then placed through this incision and elevated the left lobe of the liver and it was locked in place. Next under direct visualization another 8 mm port was placed in the right upper quadrant and 2 more 8 mm ports were placed in the left upper quadrant. The robot was then docked. Using a vessel sealer the pars flaccida was dissected open and then the right crura was dissected free. The esophagus was mobilized and the left crura was identified. Next dissection was carried out in the greater curvature of the stomach. The short gastrics were taken down using the vessel sealer dissecting upward to the spleen and the splenic attachments were taken down. The esophagus was mobilized from the left crura. Next a Saud drain was placed around the esophagus and it was retracted anteriorly. The posterior dissection of the esophagus was carried out and then the esophagus was retracted inferiorly and the anterior esophageal dissection was carried out. The vagus nerves were identified and spared. Next the esophagus was retracted laterally and the crura was closed with interrupted 0 Ethibond sutures. Next after the crura was reapproximated the stomach was passed behind the esophagus and then the bougie was placed. The stomach was then wrapped around the esophagus and sutured together. It was sutured together with several sutures incorporating the esophagus and the crura. There was a nice wrap with very little tension. Next an EGD was performed. A bite block was placed and the well-lubricated EGD scope was placed into the mouth and down through the esophagus and into the stomach. There was little resistance. The retroflexed view showed a good wrap. There was no bleeding in the stomach. The stomach was insufflated and irrigation was placed over the stomach and there was no sign of leak. The stomach was suctioned dry and then the scope was retracted. Next the abdomen was irrigated and suctioned dry. The liver retractor was removed. All of the ports were removed and the abdomen was allowed to desufflate. The incisions were injected with local anesthetic and closed with interrupted 4-0 Monocryl sutures. Steri-Strips and bandages were applied. Patient was taken to PACU in stable condition and tolerated the procedure well. Surgical Findings: Hiatal hernia Complications Complications: No Admit VTE Documentation VTE Mechan Device Prophylaxis: SCD's
--- NOTE | 2025-01-09 11:54 | PCM.POST.ANE ---
Anesthesia: Postop Eval I Current Vital Signs Temperature: 98.6 F Pulse Rate: 92 Blood Pressure: 126/89 Respiratory Rate: 16 Pulse Ox: 97 Oxygen Delivery Method: Room Air Assessment Airway patent: Yes Spontaneous unlabored respirations: Yes Mental status: Awake and Calm nausea: No Vomiting: No Anesthesia Complication: No Fluid Hydration Crystalloid volume administer (ml): 900 Total IV fluid infused: 900 Progress Note Anesthesia document: Postop Eval 1 completed: Yes
--- NOTE | 2025-01-09 13:46 | POSTOPAN2_ITS ---
Anesthesia Postop Eval I Sum Postop Eval Completion status Anesthesia document: Postop Eval 1 completed: Yes Anesthesia Postop Eval I Summary Anesthesia Postop Eval I Summary: Anesthesia Postop Eval I: Assessment Summary Airway patent Yes 01/09/25 11:55 INSTRUCTIONAL TECHNOLOGY INSTRUCTOR.SKOBY Spontaneous unlabored Yes 01/09/25 11:55 INSTRUCTIONAL TECHNOLOGY INSTRUCTOR.MACKENZIE respirations Mental status Awake,Calm 01/09/25 11:55 INSTRUCTIONAL TECHNOLOGY INSTRUCTOR.SKOBY nausea No 01/09/25 11:55 INSTRUCTIONAL TECHNOLOGY INSTRUCTOR.SKOBY Vomiting No 01/09/25 11:55 INSTRUCTIONAL TECHNOLOGY INSTRUCTOR.SKOBY Anesthesia Postop Eval I: Fluid Summary Crystalloid volume administer 900 01/09/25 11:55 INSTRUCTIONAL TECHNOLOGY INSTRUCTOR.SKOBY (ml) Colloids volume administered ( ml) Blood Product volume administered (ml) Total IV fluid infused 900 01/09/25 11:55 INSTRUCTIONAL TECHNOLOGY INSTRUCTOR.JENNIFEROBRenato Anesthesia Postop Eval I: Summary Notes Anesthesia Complication No 01/09/25 11:55 INSTRUCTIONAL TECHNOLOGY INSTRUCTOR.MACKENZIE Anesthesia Complication Comment: Post-operative progress note Anesthesia: Postop Eval II Evaluation Mental status: Awake and Calm Pain Level: 1 nausea: No Vomiting: No Progress Note Post-operative progress note: While in PACU it was noticed that the patient had shown an telemetric heart rhythm which seem to be a possible bundle branch block. I spoke with the surgeon and advised consult to hospital medicine. Patient was admitted with school bus monitor. Communicated this with the hospitalist as well. Complications Anesthesia Complication: No
--- NOTE | 2025-01-09 13:46 | PCM.POSTANE2 ---
Anesthesia Postop Eval I Sum Postop Eval Completion status Anesthesia document: Postop Eval 1 completed: Yes Anesthesia Postop Eval I Summary Anesthesia Postop Eval I Summary: Anesthesia Postop Eval I: Assessment Summary Airway patent Yes 01/09/25 11:55 MAGNETIC RESONANCE IMAGING DIRECTOR.SKOBY Spontaneous unlabored Yes 01/09/25 11:55 MAGNETIC RESONANCE IMAGING DIRECTOR.MACKENZIE respirations Mental status Awake,Calm 01/09/25 11:55 MAGNETIC RESONANCE IMAGING DIRECTOR.SKOBY nausea No 01/09/25 11:55 MAGNETIC RESONANCE IMAGING DIRECTOR.SKOBY Vomiting No 01/09/25 11:55 MAGNETIC RESONANCE IMAGING DIRECTOR.SKOBY Anesthesia Postop Eval I: Fluid Summary Crystalloid volume administer 900 01/09/25 11:55 MAGNETIC RESONANCE IMAGING DIRECTOR.SKOBY (ml) Colloids volume administered ( ml) Blood Product volume administered (ml) Total IV fluid infused 900 01/09/25 11:55 MAGNETIC RESONANCE IMAGING DIRECTOR.JENNIFEROBRenato Anesthesia Postop Eval I: Summary Notes Anesthesia Complication No 01/09/25 11:55 MAGNETIC RESONANCE IMAGING DIRECTOR.MACKENZIE Anesthesia Complication Comment: Post-operative progress note Anesthesia: Postop Eval II Evaluation Mental status: Awake and Calm Pain Level: 1 nausea: No Vomiting: No Progress Note Post-operative progress note: While in PACU it was noticed that the patient had shown an telemetric heart rhythm which seem to be a possible bundle branch block. I spoke with the surgeon and advised consult to hospital medicine. Patient was admitted with scale mechanic. Communicated this with the hospitalist as well. Complications Anesthesia Complication: No
[2025-01-09] MEDS: 0.9% Saline Lock 10 ML Syringe IV ×2 (14:11→16:50)
[2025-01-09] MEDS: 0.9% Normal Saline (1000mL) 1,000 ML 100 ML IV (14:11)
[2025-01-10] VITALS (15 sets, daily range): BP systolic 124–148; BP diastolic 82–90; PULSE 75–103; RESP 14–18; TEMP 36.8–38.2; O2SAT 91–96
[2025-01-10] MEDS: 0.9% Normal Saline (1000mL) 1,000 ML 100 ML IV ×2 (00:06→15:52)
[2025-01-10 06:32] LABS: Hematocrit 36.1 % (37-47); Hemoglobin 11.4 g/dL (12.0-15.0); Immature Granulocytes Count 0.040 X10^3/uL (0.0-0.0); Mean Corp Hgb Conc 31.6 g/dL (32-36); Mean Corpuscular Volume 86.4 fL (81-99); Mean Platelet Vol. 9.5 fl (6.2-12.0); NRBC Flagged by Analyzer 0 % (0-5); Platelet Count 272 K/mm3 (150-450); RBC Distribution Width CV 15.2 % (11.6-14.6); RBC Distribution Width SD 48.1 fl (35.1-43.9); Red Blood Count 4.18 M/mm3 (4.2-5.4); White Blood Count 12.6 K/mm3 (4.4-11.0)
--- NOTE | 2025-01-10 07:02 | PCM.PN.SRG ---
Subjective Subjective Patient evaluated resting comfortably in bed. She notes left shoulder pain. She notes coughing over night which was uncomfortable at her incisions. She denies any nausea, vomiting. Objective Data Objective Data Vital Signs: Vital Signs Temp Pulse Resp BP Pulse Ox O2 Del Method O2 Flow Rate 98.2 F 75 16 141/84 H 94 Room Air 1 01/10/25 02:03 01/10/25 05:57 01/10/25 02:03 01/10/25 02:03 01/10/25 05:11 01/10/25 05:11 01/10/25 02:03 Oxygen Flow Rate (L/min) 1 Oxygen Delivery Method Room Air Weight: 185 lb 3.013 oz Body Mass Index (BMI) 32.8 Intake & Output: Intake and Output for Last 24 Hours 01/08/25 01/09/25 01/10/25 23:59 23:59 23:59 Intake Total 1080 / 1080 991.67 / 991.67 Output Total Balance 1070 / 1070 991.67 / 991.67 Lab / Micro Data 01/10/25 05:35 01/10/25 05:35 Labs: Laboratory Results - last 24 hr 01/10/25 05:35: WBC 12.6 H, RBC 4.18 L, Hgb 11.4 L, Hct 36.1 L, MCV 86.4, MCH 27.3, MCHC 31.6 L, RDW Std Deviation 48.1 H, RDW Coeff of Mignon 15.2 H, Plt Count 272, MPV 9.5, Immature Gran % (Auto) 0.300, Neut % (Auto) 82.0 H, Lymph % (Auto) 10.1 L, [place] % (Auto) 7.4, Eos % (Auto) 0.0, Baso % (Auto) 0.2, Absolute Neuts (auto) 10.3 H, Absolute Lymphs (auto) 1.27, Nucleated RBC % 0 Physical Exam GI GI Narrative: Abdomen- soft, nontender. Incisions c/d/i. No erythema or infection noted. Assessment & Plan Assessment/Plan (1) Hiatal hernia: PLAN: I am following this patient in conjunction with Dr. Georges in Dr. Corado's absence. Labs reviewed Start clear liquids this morning Advance to full liquids at lunch time if tolerates clear liquids Hopeful discharge around later afternoon Start oxycodone to see how patient tolerates swallowing oral medication Discharge instructions, including diet, were explained to the patient Charges/Coding Visit Charges Inpatient E&M: 16071 Subs Hosp L1 (post-op)
[2025-01-10 07:09] LABS: Anion Gap 12 (5-15); BUN 13 mg/dL (4-19); BUN/Creat Ratio 15.0 RATIO (10-20); Calcium,Total 8.2 mg/dL (7.6-11.0); Carbon Dioxide 19.9 mmol/L (21.0-32.0); Chloride 107 mmol/L (98-108); Estimated Creatinine Clearance 79.56 ml/min (50-250); Glucose 95 mg/dL (70-99); Potassium 4.1 mmol/L (3.3-5.1)
[2025-01-10] MEDS: 0.9% Saline Lock 10 ML Syringe IV ×3 (07:48→17:47)
[2025-01-11] VITALS (8 sets, daily range): BP systolic 126–147; BP diastolic 75–90; PULSE 68–98; RESP 16; TEMP 36.8–37.7; O2SAT 95–97
[2025-01-11] MEDS: 0.9% Normal Saline (1000mL) 1,000 ML 100 ML IV ×2 (02:07→12:07)
[2025-01-11 06:48] LABS: Hematocrit 34.5 % (37-47); Hemoglobin 11.1 g/dL (12.0-15.0); Immature Granulocytes Count 0.030 X10^3/uL (0.0-0.0); Mean Corp Hgb Conc 32.2 g/dL (32-36); Mean Corpuscular Volume 85.8 fL (81-99); Mean Platelet Vol. 9.2 fl (6.2-12.0); NRBC Flagged by Analyzer 0 % (0-5); Platelet Count 207 K/mm3 (150-450); RBC Distribution Width CV 15.3 % (11.6-14.6); RBC Distribution Width SD 48.0 fl (35.1-43.9); Red Blood Count 4.02 M/mm3 (4.2-5.4); White Blood Count 9.0 K/mm3 (4.4-11.0)
--- NOTE | 2025-01-11 07:35 | PCM.PN.SRG ---
Subjective Subjective Patient seems comfortable but she reported difficulty with full liquids yesterday. She was also having low-grade fever and shoulder pain. The shoulder pain is gone. Objective Data Objective Data Vital Signs: Vital Signs Temp Pulse Resp BP Pulse Ox O2 Del Method O2 Flow Rate 99 F 94 16 127/78 H 95 Nasal Cannula 1 01/11/25 05:17 01/11/25 05:17 01/11/25 05:17 01/11/25 05:17 01/11/25 05:17 01/11/25 05:17 01/10/25 02:03 Oxygen Flow Rate (L/min) 1 Oxygen Delivery Method Nasal Cannula Weight: 185 lb 3.013 oz Body Mass Index (BMI) 32.8 Intake & Output: Intake and Output for Last 24 Hours 01/09/25 01/10/25 01/11/25 23:59 23:59 23:59 Intake Total 1080 / 1080 1947.92 / 1947.92 1360 / 1360 Output Total 10 / 10 Balance 1070 / 1070 1947.92 / 1947.92 1360 / 1360 Lab / Micro Data 01/11/25 06:11 01/10/25 05:35 Labs: Laboratory Results - last 24 hr 01/11/25 06:11: WBC 9.0, RBC 4.02 L, Hgb 11.1 L, Hct 34.5 L, MCV 85.8, MCH 27.6, MCHC 32.2, RDW Std Deviation 48.0 H, RDW Coeff of Mignon 15.3 H, Plt Count 207, MPV 9.2, Immature Gran % (Auto) 0.300, Neut % (Auto) 76.0 H, Lymph % (Auto) 15.2 L, [place] % (Auto) 7.9, Eos % (Auto) 0.2, Baso % (Auto) 0.4, Absolute Neuts (auto) 6.8, Absolute Lymphs (auto) 1.36, Nucleated RBC % 0 Physical Exam Const oriented x3 and no apparent distress Resp normal respiratory effort GI soft to palpation and non-tender Extremity normal to inspection Assessment & Plan Assessment/Plan (1) Hiatal hernia: PLAN: Patient is postoperative day 2 from hiatal hernia repair and Lacy fundoplication. She had difficulties with fulls yesterday. Will try again today. If she has difficulties again today I will discharge her home on clear liquids and plan for a scope in about a week to 2 weeks. Michael Corado MD Pager: [facility] [address] [place] [address] [address] [place] [phone] Office:
--- NOTE | 2025-01-11 12:10 | PCM.DC.SUM ---
Providers Date of Admission: 01/10/25 Date of Discharge: 01/11/25 Primary Care Physician: Dr. La Dobson MD Reason For Visit: HITATAL HERNIA Diagnosis Discharge Diagnosis (1) Hiatal hernia: Status: Acute Code(s): K44.9 - Diaphragmatic hernia without obstruction or gangrene Plan: I am following this patient in conjunction with Dr. Georges in Dr. Corado's absence. Labs reviewed Start clear liquids this morning Advance to full liquids at lunch time if tolerates clear liquids Hopeful discharge around later afternoon Start oxycodone to see how patient tolerates swallowing oral medication Discharge instructions, including diet, were explained to the patient Medications at Discharge Home Medications estradiol 0.01% (0.1 mg/gram) vaginal cream 1 g vaginal QWEEK 05/03/24 Saccharomyces boulardii 250 mg capsule (Digest Probiotic (S.boulardii)) 250 mg PO QDAY 05/17/24 Held on 01/10/25. Instructions: Resume on 01/24/25. cranberry 500 mg capsule 500 mg PO QDAY 05/17/24 Held on 01/10/25. Instructions: Resume on 01/24/25. epinephrine 0.3 mg/0.3 mL injection, auto-injector (EpiPen) 0.3 mg (0.3 mL) IM ONCE #2 ea 11/25/24 oxycodone 5 mg tablet 5 mg PO Q6H PRN PRN Pain Score 1-10 3 days #10 tabs 01/10/25 Hospital Course Operations - (Robotic assisted laparoscopic hiatal hernia repair with Lacy fundoplication and EGD) Summary of Care Provided Minutes Spent on Discharge: 35 Hospital Course: Patient is a 54 y/o F who presented for an elective Robotic assisted laparoscopic hiatal hernia repair with Lacy fundoplication and EGD performed by Dr. Corado on 01/09/25. Patient tolerated the procedure well. Patient was advanced to clear liquids on POD #1 which she tolerated and then advanced to full liquids which stuck some. Discharge was cancelled and patient was held onto and converted to inpatient status to be observed over night. Upon discharge, patient is tolerating a clear liquid diet. She notes pain is well controlled. She denies any nausea at this time. She notes oral medication is going down okay. Patient will also need to start protein shakes/supplementation while on a liquid diet. She will follow-up with Dr. Corado in 1 week. Weight / BMI Weight Weight: 185 lb 3.013 oz Body Mass Index (BMI) 32.8 ABG / Lab / Microbiology Data 01/11/25 06:11 01/10/25 05:35 Laboratory: Laboratory Results - last 24 hr 01/11/25 06:11: WBC 9.0, RBC 4.02 L, Hgb 11.1 L, Hct 34.5 L, MCV 85.8, MCH 27.6, MCHC 32.2, RDW Std Deviation 48.0 H, RDW Coeff of Mignon 15.3 H, Plt Count 207, MPV 9.2, Immature Gran % (Auto) 0.300, Neut % (Auto) 76.0 H, Lymph % (Auto) 15.2 L, [place] % (Auto) 7.9, Eos % (Auto) 0.2, Baso % (Auto) 0.4, Absolute Neuts (auto) 6.8, Absolute Lymphs (auto) 1.36, Nucleated RBC % 0 D/C Instructions Discharge Activity: May Not Drive (3-5 days) and May Shower Lifting Restrictions: No lifting greater than 20 pounds for 4 weeks Call your doctor if your incision/area has: Continuous Slow Oozing, Sudden Increased Bleeding, Increased Pain/ Swelling, Increased Redness, Foul Smelling Discharge and Swelling at the incision site Call your doctor if you observe: Fever of 101 or Higher Suture Line Care: Avoid Pulling/Pushing and Avoid Pinching/Bending Remove Dressing in: 1 day Cleanse incision/area with: Soap & Water DC O2, CPAP, BIPAP Needs Home O2 Discharge instructions: No Please Follow Up With: Michael Coraod MD When: Please contact our office at [phone], option #2 to schedule a follow-up visit for 1 week Meaningful Use Info Meaningful Use Meaningful Use Diagnoses (Choose all that apply): None applicable Discharge Plan Admission Admit Date/Time: 01/10/25 15:45 Primary Reason for Your Visit: Hiatal hernia repair Attending Provider: Michael Corado Primary Care Provider: La Dobson Instructions Additional Instructions / Restrictions: Laparoscopic Lacy fundoplication or Toupet procedure Diet ? This is outlined on a separate diet instruction sheet (see below) Activity ? You may drive in 3-5 days but not while taking narcotic pain medication. ? I encourage walking. You may go up steps, one at a time. ? Do not swim or use hot tubs for 2 weeks. Lifting ? You may lift up to 15 pounds for 2 weeks. No strenuous exercises/activities for 4-6 weeks. Dressings/Incision ? You may shower OVER your plastic dressings in 24 hours ? Do NOT tub bathe for 1 week ? Leave plastic dressings on for 2 days from surgery date. ? When plastic dressings are removed, you will find steri strips. It is okay to continue showering with them in place, pat them dry. ? You may remove steri-strips after 1 week. We recommend getting them soaking wet for easier removal. Medications ? Anesthesia used during surgery and pain medications may cause constipation. I recommend initiating on the day of surgery a fiber supplement like, Metamucil, Citrucel, FiberCon, Benefiber, or a generic form of these medications. 1 heaping tablespoon in water daily. You may continue to utilize any bowel regimen or oral laxatives that you routinely take. ? As long as you are not intolerant to Tylenol, acetaminophen, ibuprofen, Motrin, Advil, Aleve, or similar medications, I would recommend transitioning to these [id number] medicines as soon as possible instead of continued use of narcotic pain medication. Follow up ? You should call [facility] soon after surgery, at [phone] option 2 to make a follow up appointment for 7 days after your surgery. Diet After Lacy Fundoplication Surgery This diet information is for patients who have recently had Lacy fundoplication surgery to correct reflux disease or to repair various types of hernias, such as hiatal hernia and intrathoracic stomach. This diet may also be used for other gastrointestinal surgeries, such as Heller myotomy and repair of achalasia. The diet will help control diarrhea, excess gas and swallowing problems, which may occur after this type of surgery. Keeping Your Stomach from Stretching ?? Eat small, frequent meals (six to eight per day). This will help you consume the majority of the nutrients you need without causing your stomach to feel full or distended. ?? Drinking large amounts of fluids with meals can stretch your stomach. You may drink fluids between meals as often as you like, but limit fluids to 1/2 cup (4 fluid ounces) with meals and one cup (8 fluid ounces) with snacks. ?? Sit upright while eating and stay upright for 30 minutes after each meal. Breda can help food move through your digestive tract. Do not lie down after eating. Sit upright for 2 hours after your last meal or snack of the day. ?? Eat very slowly. Take your time when eating. ?? Take small bites and chew your food well to pole shaver helper in swallowing and digestion. ?? Avoid crusty breads and sticky, gummy foods, such as bananas, fresh doughy breads, rolls and doughnuts. These types of foods become sticky and difficult to swallow. ?? Toasted breads tend to be better tolerated. ?? Lastly, if you eat sweets, consume them at the end of your meal to avoid a group of symptoms referred to as ?dumping syndrome?. This describes the rapid emptying of foods from the stomach to the small intestine. Sweetened beverages, candy and desserts move more rapidly and dump quickly into the intestines. This can cause symptoms of nausea, weakness, cold sweats, cramps, diarrhea and dizzy spells. Avoiding Gas ?? Avoid drinking through a straw. Do not chew gum or tobacco. These actions cause you to swallow air, which produces excess gas in your stomach. Chew with your mouth closed. ?? Avoid any foods that cause stomach gas and distention. These foods include corn, dried beans, peas, lentils, onions, broccoli, cauliflower and any food from the cabbage family. ?? Avoid carbonated drinks, alcohol, citrus and tomato products. When will I be able to eat a soft diet? After Lacy fundoplication surgery, your diet will be advanced slowly by your surgeon. Generally, you will be on a clear liquid diet for the first few meals. Then you will advance to the full liquid diet for a meal or two and eventually to a Lacy soft diet. Please be aware that each patient's tolerance to food is different. Your doctor will advance your diet depending on how well you progress after surgery. Clear Liquid Diet The first diet after surgery is the clear liquid diet. It includes the following liquids: ?? Apple juice ?? Cranberry juice ?? Grape juice ?? Chicken broth ?? Beef broth ?? Flavored gelatin (Jell-O?) ?? Decaf tea and coffee ?? Caffeinated beverages are permitted based on tolerance ?? Popsicles ?? [place] ice Carbonated drinks (sodas) are not allowed for the first six to eight weeks after surgery. After this time you can try them again in small amounts. Full Liquid Diet- DISCHARGE DIET ( May also try at home) The full liquid diet contains anything on the clear liquid diet, plus: ?? Milk, soy, rice and almond (no chocolate) ?? Cream of wheat, cream of rice, grits ?? Strained creamed soups(no tomato or broccoli) ?? Vanilla and strawberry-flavored ice cream ?? Sherbet ?? Blended, custard styled or whipped yogurt (plain or vanilla only) ?? Vanilla and butterscotch pudding (no chocolate or coconut) ?? Nutritional drinks including Ensure?, Boost?, [place] Instant Breakfast? (no chocolate-flavored) Note: Dairy products, such as milk, ice cream and pudding, may cause diarrhea in some people just after surgery. You may need to avoid milk products. If so, substitute them with lactose-free beverages, such as soy, rice, Lactaid? or almond milks. At your 1 week follow-up, Dr. Corado will discuss with you when to advance your diet. You may alternate Ibuprofen 600 mg every 8 hours and Tylenol 650 mg every 6 hours as needed for pain. You may also use a heating or ice over the next 3-4 days. Discharge Orders/Prescriptions Prescriptions: New oxycodone 5 mg Tablet 5 mg PO Q6H PRN PRN (Reason: Pain Score 1-10) 3 Days Qty: 10 0RF Continued estradiol 0.01 % (0.1 mg/gram) cream 1 g vaginal QWEEK epinephrine [EpiPen] 0.3 mg/0.3 mL auto-injector 0.3 mg IM ONCE Qty: 2 0RF Rx Instructions: as a single dose; may repeat once Held cranberry 500 mg capsule 500 mg PO QDAY Hold Instructions: Resume on 01/24/25. Rx Instructions: administer with meals Saccharomyces boulardii [Digest Probiotic (S.boulardii)] 250 mg capsule 250 mg PO QDAY Hold Instructions: Resume on 01/24/25. Discontinued pantoprazole [Protonix] 40 mg tablet,delayed release (DR/EC) 40 mg PO BID Qty: 60 2RF famotidine 40 mg tablet 40 mg PO QHS Qty: 30 2RF Referrals / Follow Up: La Dobson MD [Primary Care Provider, Internal Medicine] Disposition Disposition (needs filled in before D/C Order can be placed): Home, Self Care Charges/Coding Visit Charges Inpatient E&M: 58605 Disch Hosp >30min (post-op; no charge)
--- NOTE | 2025-01-11 14:38 | CASEMGMT ---
Dx:hiatal hernia LACE:1 6-Clicks:24 Medical record reviewed and patient evaluated for identification of discharge planning needs. Based on this review, at this time criteria are not present to indicate a need for discharge planning. Will remain available to assist with discharge planning needs as identified or requested.
--- NOTE | 2025-01-11 15:02 | PHA.DC.MC.R ---
Pharmacy [facility] Counseling Pharmacy Service has performed discharge medication reconciliation and counseling for this patient. 1. OXYCODONE 5MG PO Q6H PRN PAIN 2. STOP PANTOPRAZOLE AND FAMOTIDINE 3. HOLD CRANBERRY AND PROBIOTIC UNTIL 01/24 The patient's discharge medication list was reviewed for discrepancies and discrepancies were resolved. The patient was counseled on the following discharge medications and changes in medications for homegoing were reviewed. The Reason for Use, instructions for use, and potential side effects were reviewed for all new medications. The patient's questions regarding all of their medications were answered. The patient was able to verbally demonstrate an understanding of their discharge medications. Medications at Discharge Home Medications estradiol 0.01% (0.1 mg/gram) vaginal cream 1 g vaginal QWEEK 05/03/24 Saccharomyces boulardii 250 mg capsule (Digest Probiotic (S.boulardii)) 250 mg PO QDAY 05/17/24 Held on 01/10/25. Instructions: Resume on 01/24/25. cranberry 500 mg capsule 500 mg PO QDAY 05/17/24 Held on 01/10/25. Instructions: Resume on 01/24/25. epinephrine 0.3 mg/0.3 mL injection, auto-injector (EpiPen) 0.3 mg (0.3 mL) IM ONCE #2 ea 11/25/24 oxycodone 5 mg tablet 5 mg PO Q6H PRN PRN Pain Score 1-10 3 days #10 tabs 01/10/25
== END 2025-01-11 15:46 | disposition home or self-care (01) | DRG 328 ==
LOC: SDC 12:02 → MS3 12:02
PROVIDERS: Student in an Organized Health Care Education/Training Program; Surgery; Admitting Provider Surgery; PCP Internal Medicine; Referring Provider Surgery; Visit Provider Surgery
PROC: 0DV44ZZ Restriction of Esophagogastric Junction, Percutaneous Endoscopic Approach (ICD-10-PCS; principal; 2025-01-09 08:55)
DX: K44.9 Diaphragmatic hernia without obstruction or gangrene (principal); G47.33 Obstructive sleep apnea (adult) (pediatric); K21.9 Gastro-esophageal reflux disease without esophagitis; M25.512 Pain in left shoulder; Z90.710 Acquired absence of both cervix and uterus; Z87.19 Personal history of other diseases of the digestive system; Z98.51 Tubal ligation status; Z99.89 Dependence on other enabling machines and devices
CPT/HCPCS: 36415; 80048; 80076; 85025; 85027; 85610; 85730; 93005; 94668; A4216; J2405